=== PATIENT | female | born 1940 | race Caucasian/White ===

== ENCOUNTER 2023-12-19 23:03 | Inpatient (IN) | payer OTHER, SELFPAY ==
[2023-12-19 21:13] VITALS: BP 195/89
--- NOTE | 2023-12-19 21:17 | ED.GENMED ---
History of Present Illness
General
Chief Complaint: Fall
Source: patient, records and senior care records
Exam Limitations: dementia
Time Seen by Provider: 12/19/23 21:15
Nursing documentation reviewed up to this point in time: agreed with
History of Present Illness
History of Present Illness:
Patient is an 83-year-old demented female who presents to the emergency department with right hip shortening and external rotation after falling out of her wheelchair this evening. Patient actually says it is the left hip that hurts. Patient
denies any headache or neck pain. Patient denies any chest pain or abdominal pain. Patient denies any upper extremity pain.
Past History
Past History
ED Past Medical History: GERD, Hypothyroidism and Other (Dementia)
Social History
Tobacco: Non-smoker
Alcohol: None
Review of Systems
Review of Systems
Unable to obtain full review of systems at this time due to: dementia
All Other Systems: Not applicable
Phy Exam
Physical Exam
Physical Exam:
Physical Exam
General: No apparent distress, alert and appropriate, well nourished, well hydrated
HENT: Normocephalic and nontender as well as atraumatic, supple with no lymphadenopathy, no thyromegaly
Eyes: Clear sclera, conjuctiva without injection
Heart: Regular rhythm and rate. No S3, S4. No murmur. No NVD
Lungs: No respiratory distress, no stridor, lung sounds clear and equal bilaterally, chest wall symmetrical and nontender
Abdomen: Soft, nontender, BS good
Neuro: Alert , CN II - XII intact, no motor focality
Skin: no rash
Psychiatric: well kept. interactive and cooperative
Extremities: No edema, cyanosis. Right lower extremity shortened and externally rotated and pain with flexion
Musculoskeletal: No cervical, thoracic or lumbar spine tenderness
Scores
Heart Failure Risk
Heart Failure Risk Score: Not Applicable
Heart Score for Chest Pain Patients
STEMI patient?: Not applicable
Withdrawal Assessment of Alcohol
Withdrawal Assessment Completed?: Not applicable
Course
Orders/Labs/Results
Orders:
Orders
12/19/23 21:15
Cagel Placement- Treatment ONCE
Reason for insertion: I&O's Critical Care
Urinalysis Reflex To Culture Urgent
12/19/23 21:16
CR Hip - RT w/wo Pel 2-3 Vw* Urgent
Comment:
Reason For Exam: fall
Include a pelvis x-ray?: Yes
12/19/23 21:23
Type+Screen Urgent
Complete Blood Count/With Diff Urgent
Comprehensive Metabolic Panel Urgent
PTT Urgent
Prothrombin Time Urgent
Abnormal Lab Results
12/19/23
21:23
WBC 10.9 H 10^3/uL
(4.8-10.8)
MPV 10.6 H fL
(7.4-10.4)
Abs Immat Gran (auto) 0.1 H 10^3/uL
(0-0.05)
Absolute Neuts (auto) 8.8 H 10^3/uL
(1.4-6.5)
Absolute Lymphs (auto) 1.1 L 10^3/uL
(1.2-3.4)
Immature Gran % 0.7 H %
(0-0.5)
Neutrophils % 81.4 H %
(42.2-75.2)
Lymphocytes % 10.5 L %
(20.5-51.1)
Glucose 178 H mg/dl
(70-99)
Calcium 10.3 H mg/dl
(8.4-10.2)
AST 38 H U/L
(14-36)
ALT 37 H U/L
(0-35)
12/19/23 21:23
12/19/23 21:23
Vital Signs
Initial and Last Documented VS:
Initial Vital Signs
Temp Pulse Resp BP Pulse Ox
98.3 F 69 26 195/89 90
12/19/23 21:19 12/19/23 21:19 12/19/23 21:19 12/19/23 21:19 12/19/23 21:19
Last Documented Vital Signs
Temp Pulse Resp BP Pulse Ox
98.3 F 69 26 195/89 90
12/19/23 21:19 12/19/23 21:19 12/19/23 21:19 12/19/23 21:19 12/19/23 21:19
*Radiology
Radiology exam reviewed: radiology read reviewed (Right intertrochanteric fracture)
*Pulse Oximetry
Patient hypoxic: no
*EKG
Interpreted by ED Provider?: NA
*Mine Environmental Engineer Interpretation
Rate: Mine Environmental Engineer- N/A
*Critical Care Note
Total Time (30-74mins, 75-104mins- exclusive of procedures): Not Applicable
ED Attending Note
-
Portions of this chart may have been created with voice recognition software.� Occasional wrong word or��sound alike� substitutions may have occurred due to the inherent limitations of voice recognition software.
Discharge Plan
Departure
Patient Disposition: Admit
Date of Disposition: 12/19/23
Time of Disposition: 22:21
Admit to: Med/Surg
Admit to doctor: Hospitalist
Presentation/result/management discussed w/ accepting MD/DO: Orthopedics
Patient with high blood pressure during this ER visit?: Yes
Condition: Fair
Covid-19: Not Applicable
Discharge Problem:
Intertrochanteric fracture of right hip
Prescriptions:
No Action
acetaminophen 325 mg Tablet
650 mg PO Q6H PRN (Reason: mild pain)
albuterol sulfate 2.5 mg /3 mL (0.083 %) Solution For Nebulization
2.5 mg INHALATION R Q4 PRN (Reason: wheezing)
Patient Comments:
Patent caregiver reports not taking.
polyethylene glycol 3350 17 gram Powder In Packet
17 g PO MOWEFR
sertraline 100 mg Tablet
100 mg PO DAILY
amlodipine 5 mg Tablet
5 mg PO DAILY
levothyroxine 25 mcg Tablet
25 mcg PO DAILY@0600
docusate sodium 100 mg Capsule
100 mg PO DAILY
cocoa butter-shark liver oil Suppository
1 supp OK BID PRN (Reason: Hemorrhoids)
metoprolol succinate 25 mg Tablet Extended Release 24 Hr
25 mg PO BID
metronidazole 1 % Gel
1 applic TOPICAL BID
Rx Instructions:
apply to facial area
pantoprazole 40 mg Tablet,Delayed Release (Dr/Ec)
40 mg PO BID 30 Days Qty: 60 0RF
polyethylene glycol 3350 [Miralax] 17 gram Powder In Packet
17 g PO DAILY PRN (Reason: constipation)
acetaminophen 500 mg Tablet
500 mg PO Q6H PRN (Reason: mild pain/fever)
guaifenesin 100 mg/5 mL Liquid
200 mg PO Q4H PRN (Reason: cough)
cholecalciferol (vitamin D3) [Vitamin D3] 50 mcg (2,000 unit) Tablet
150 mcg PO DAILY
Slow Release Iron 140 mg (45 mg iron) Tablet Extended Release
140 mg PO DAILY
Preparation H 0.25-14-74.9 % Ointment
1 applic OK QID PRN (Reason: external hemorrhoids)
cefpodoxime 200 mg tablet
200 mg PO BID 10 Days Qty: 20 0RF
Referrals:
Saul Mcarthur MD [Family Provider] -
Interventions
Interventions:
*Risk Screen - Suicide Last Done: 12/19/23 21:19
*General Assessment Last Done: 12/19/23 21:19
*Neglect/Abuse Screening Last Done: 12/19/23 21:19
ED- Fall Risk Assessment Last Done: 12/19/23 21:19
*ED COVID-19 Vaccine History Last Done: 12/19/23 21:19
ED-Musculoskeletal Assessment Last Done: 12/19/23 21:19
ED- Neurological Assessment Last Done: 12/19/23 21:19
ED-Skin Assessment Last Done: 12/19/23 21:19
Discharge Date and Time
Print Language: ANDORRAN
[2023-12-19 21:19] VITALS: BP 195/89
[2023-12-19 21:38] LABS: % Basophils 0.5 % (0-2); % Immature Granulocytes 0.7 % (0-0.5); % Lymphocytes 10.5 % (20.5-51.1); % Monocytes 5.9 % (1.7-9.3); % Neutrophils 81.4 % (42.2-75.2); Absolute Basophils 0.1 10^3/uL (0-0.2); Absolute Eosinophils 0.1 10^3/uL (0-0.7); Absolute Immature Granulocytes 0.1 10^3/uL (0-0.05); Absolute Lymphocytes 1.1 10^3/uL (1.2-3.4); Absolute Monocytes 0.6 10^3/uL (0.1-0.6); Absolute Neutrophils 8.8 10^3/uL (1.4-6.5); Hematocrit 40.6 % (37.0-47.0); Hemoglobin 14.2 g/dL (12.0-16.0); Mean Corpuscular Volume 82.9 fL (81.0-99.0); Mean Platelet Volume 10.6 fL (7.4-10.4); Nucleated Red Blood Cells % 0 %; Platelet Count 219 10^3/uL (130-400); Red Cell Dist. Width 12.9 % (11.5-14.5); White Blood Cell Count 10.9 10^3/uL (4.8-10.8)
[2023-12-19 21:49] LABS: ALT (SGPT) 37 U/L (0-35); AST (SGOT) 38 U/L (14-36); Albumin 4.2 g/dl (3.5-5.0); Alkaline Phosphatase 101 U/L (38-126); Blood Urea Nitrogen 17 mg/dl (7-17); Calcium 10.3 mg/dl (8.4-10.2); Carbon Dioxide 23 mmol/L (22-30); Chloride 99 mmol/L (98-107); Glucose 178 mg/dl (70-99); Potassium 4.1 mmol/L (3.5-5.1); Sodium 136 mmol/L (135-145); Total Bilirubin 0.5 mg/dl (0.2-1.3); Total Protein 6.6 g/dl (6.3-8.2); eGFR > 60.00
[2023-12-19 21:50] LABS: APTT 26.9 Sec (23.4-35.0); INR 1.04; PT 13.4 Sec (11.4-14.6)
--- NOTE | 2023-12-19 22:26 | HPS.HSE ---
Addendum entered and electronically signed by Dash Jameson DO 12/20/23 00:01:
Patient seen and examined independently. Agree with findings and plan as set froth by SERENA Pettit.
Patient is an 83y F with dementia, hypertension and h/o paroxysmal atrial fibrillation who presents to ED for evaluation after fall. History obtained from son at the bedside. Patient pleasantly demented at baseline and does not recall events
leading to admission. Patient does complain of pain in the R hip / groin at present. She was apparently leaning from her wheelchair to pick something up from the floor when she fell and landed on her R hip. She was helped back into her chair by
staff; however, son came to check on her later and felt that her RLE appeared abnormal and noted pain with ROM. Patient was brought to the ED for further evaluation / treatment.
Ass:
Right Hip Fracture
Fall from Wheelchair
Ambulatory Dysfunction
Benign Hypertension
Paroxysmal A-Fib
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
GERD / Hiatal Hernia
Hypothyroidism
Senile Dementia
Plan:
Admit for further evaluation and treatment.
Pain control / supportive care overnight.
Ortho evaluation in the AM for probable operative repair.
Patient is mostly wheelchair bound; however, she does stand with assistance for transfers and ambulates with a walker for PT at times.
Patient is at average risk for complications compared to an otherwise healthy individual of her age.
Benefits of the planned procedure outweigh the potential risks and patient is OK to proceed to OR without additional pre-op evaluation(s).
Continue outpatient med regimen.
Monitor on tele josé-operatively.
Not on OAC chronically for her reported history of A-Fib (has always been in sinus rhythm here).
Post-op PT / OT evals.
Original Note:
Family Physician
-
Family Physician: Saul Mcarthur
Chief Complaint
-
fall with hip fracture
History of Present Illness
83 year old with PMH for esophagitis, atrial fib,HTn,depression, dementia presented to us s/p fall. she was sitting on the wheelchair. patient is wheelchair bound. she bent over to take something from the floor. she fell out of her wheelchair.
denied hitting head of the bed. since then she is complaining of right hip pain. she cannot move her right LE. denied BRIZUELA,dizzy or syncopal episode. denied fever, chills, chest pain, sob.denied abdominal pain, n,v,d.denied dysuria or hematuria.
Hip x ray with Intertrochanteric fracture of the right proximal femur.
admitting for further management.
Medical History
Past Medical History
Past Medical History: Reports Other
Additional Past Medical History:
esophagitis
dysphagia
hiatal hernia
htn
depression
dementia
hydrocephalus with shunt
atrial fib
OCd
Past Surgical History: Reports Other
Additional Past Surgical History:
bladder lift
left foot surgery
shunt
Social History
Tobacco: Former Smoker
Alcohol: None
Living: Long-Term
Family History
Family History: Not pertinent
Allergies / Home Medications
Allergies reflects when Allergies were last updated in [facility].
Home Medications with original date entered in [facility]
Allergy/Medication List:
Allergies
Allergy/AdvReac Type Severity Reaction Status Date / Time
bupropion Allergy Rash Verified 12/19/23 21:18
erythromycin base Allergy Rash Verified 12/19/23 21:18
Home Medications
albuterol sulfate 2.5 mg/3 mL (0.083 %) solution for nebulization 2.5 mg inhalation R Q4HPRN PRN wheezing 01/20/22
amlodipine 5 mg tablet 5 mg PO DAILY Blood pressure 01/20/22
docusate sodium 100 mg capsule 100 mg PO DAILY Constipation 01/20/22
levothyroxine 25 mcg tablet 25 mcg PO DAILY Thyroid 01/20/22
metoprolol succinate 25 mg tablet,extended release 24 hr 25 mg PO BID Blood pressure 01/20/22
metronidazole 1 % topical gel 1 applic topical BID rosaea 01/20/22
polyethylene glycol 3350 17 gram oral powder packet 17 g PO MOWEFR Constipation 01/20/22
sertraline 100 mg tablet 100 mg PO DAILY Depression 01/20/22
pantoprazole 40 mg tablet,delayed release 40 mg PO BID 30 days #60 tabs 01/22/22
acetaminophen 500 mg tablet 500 mg PO Q6HPRN PRN mild pain/fever 03/31/23
cholecalciferol (vitamin D3) 50 mcg (2,000 unit) tablet (Vitamin D3) 150 mcg PO DAILY 03/31/23
ferrous sulfate 140 mg (45 mg iron) tablet,extended release (Slow Release Iron) 140 mg PO DAILY 03/31/23
guaifenesin 100 mg/5 mL oral liquid 200 mg PO Q4HPRN PRN cough 03/31/23
polyethylene glycol 3350 17 gram oral powder packet (Miralax) 17 g PO DAILYPRN PRN constipation 03/31/23
phenylephrine HCl 0.25 % rectal suppository 1 supp MI BIDPRN PRN hemorrhoids 12/19/23
phenylephrine-shark liver oil-mineral oil-petrolatum rectal ointment (Hemorrhoidal ointment) 1 applic MI Q6HPRN PRN hemorrhoids 12/19/23
potassium chloride 10 mEq tablet,extended release 10 meq PO DAILYPRN PRN when lasix is given 12/19/23
zinc oxide 12 % topical cream (Brent Protect (zinc oxide)) 1 applic topical BID buttocks rash 12/19/23
Review of Systems
-
Constitutional: Reports No Symptoms
EENT: Reports No Symptoms
Respiratory: Reports No Symptoms
Cardiac: Reports No Symptoms
Abdomen/GI: Reports No Symptoms
: Reports No Symptoms
Musculoskeletal: Reports Other (right hip pain)
Skin: Reports No Symptoms
Neurological: Reports No Symptoms
Endocrine: Reports No Symptoms
Hematologic/Lymphatic: Reports No Symptoms
Psych: Reports No Symptoms
Physical Exam
Vital Signs
Vital Signs
Temp Pulse Resp BP Pulse Ox
98.3 F 69 26 195/89 90
12/19/23 21:19 12/19/23 21:19 12/19/23 21:19 12/19/23 21:19 12/19/23 21:19
Physical Exam
General: Well Developed, Well Nourished and No Apparent Distress
HEENT: NormoCephalic, Moist mucous membranes and Atraumatic
Respiratory: Clear
Cardiac: S1/S2 and Regular Rhythm; No Murmur or Rub
GI: Soft, Non Tender, Non Distended and Normal Bowel Sounds; No Organomegaly
Rectal: Deferred by Provider
Musculoskeletal: No Clubbing, No Cyanosis and Other (right LE shortened and externally rotated)
Skin: No Rash
Neuro: Nonfocal/grossly intact
Psych: Confused
Laboratory Results
-
12/19/23 21:23
12/19/23 21:23
Laboratory Results
PT 13.4 Sec (11.4-14.6) 12/19/23 21:23
INR 1.04 12/19/23 21:23
APTT 26.9 Sec (23.4-35.0) 12/19/23 21:23
Total Bilirubin 0.5 mg/dl (0.2-1.3) 12/19/23 21:23
AST 38 U/L (14-36) H 12/19/23 21:23
ALT 37 U/L (0-35) H 12/19/23 21:23
Alkaline Phosphatase 101 U/L (38-126) 12/19/23 21:23
Data Reviewed
-
Diagnostic Radiology: Report Reviewed by me
Lab Data: Labs Reviewed by me
Impression/Plan
-
#fall with intertrochanteric fracture of right hip
-ortho consulted
-Hip X ray with Intertrochanteric fracture of the right proximal femur.
-will keep NPO after MN
-PT/OT eval after orthopedic evaluation
-bed rest until evaluated by ortho
-oxy,Dilaudid prn for pain
#leukocytosis likely stress reaction
-wbc 10.9
-patient is afebrile, ctm
-obtain UA
#COPD without acute exacerbation
-albuterol continued
#HTN
-BP elevated in ER
�- Continue metoprolol and Norvasc with holding parameters.
-hydralazine prn for SBP>160
�
#Hypothyroidism
�- Continue current T4 supplementation.
#paroxysmal atrial fibrillation unknown chronicity
-obtain EKG
-Not as AC.
-metoprolol continued
#Senile Dementia
�- Continue sertraline
#GERD
-PPI
�
#DVT Prophylaxis:� SCDs
Code Status:� DNR
[2023-12-19 22:28] VITALS: BP 197/87
[2023-12-19 22:35] VITALS: BP 193/90
[2023-12-19 23:00] VITALS: BP 208/88
[2023-12-19 23:03] VITALS: BP 208/88
[2023-12-19] MEDS: LOPRESSOR 25 MG PO (23:34)
[2023-12-20] VITALS (19 sets, daily range): BP systolic 116–194; BP diastolic 67–102; BMI 27.1
[2023-12-20] MEDS: SENOKOT PO ×2 (00:44→17:36)
[2023-12-20] MEDS: MIRALAX PO (00:44)
[2023-12-20] MEDS: COLACE PO ×2 (00:44→17:36)
[2023-12-20] MEDS: TYLENOL PO ×3 (00:44→17:36)
[2023-12-20] MEDS: APRESOLINE 10 MG IV (00:56)
[2023-12-20] MEDS: SYNTHROID 25 MCG PO (05:50)
[2023-12-20] MEDS: ZOLOFT 100 MG PO (08:13)
[2023-12-20] MEDS: TOPROL XL 25 MG PO ×2 (08:13→19:46)
[2023-12-20] MEDS: NORVASC 5 MG PO (08:13)
--- NOTE | 2023-12-20 09:24 | W.PN.HOSP.TC ---
Today's Communication/Plan
-
Await surgery today
Assessment / Plan
Assessment / Plan
Gen-awake, alert, confused, NAD
HEENT-NC, AT, anicteric, clear oral mm
Neck-supple
CV-reg, no M, +S1/S2
Lungs-clear B/L
Abd-soft, NT, ND
Ext-no edema
Musculoskeletal-no cyanosis, clubbing, right lower extremity shortened
Skin-warm and dry
Neuro-grossly non-focal
Psych-calm, cooperative
Acute traumatic right proximal femur fracture -intertrochanteric on x-ray. Suspect fracture related to fall and underlying osteoporosis. Currently n.p.o., awaiting operative intervention today.
PT/OT postop. Continue analgesics.
Apparently is wheelchair-bound at baseline.
Hyperglycemia check - hemoglobin A1c, rule out DM2.
Dementia, likely Alzheimer's type
GERD
Essential hypertension -stable.
NPH with [employer] shunt
Paroxysmal atrial fibrillation -not on chronic anticoagulation.
Esophagitis history
COPD without exacerbation -stable.
Hypothyroidism -continue levothyroxine.
DNR
Anticipated Discharge: > 48 hours
Subjective/Interval History
-
Date of Service: December 20, 2023
Patient seen and examined. No complaints. Pleasantly confused.
Objective Data
-
Labs:
Laboratory Results
12/19/23
21:23
WBC 10.9 H
Hgb 14.2
Hct 40.6
Plt Count 219
PT 13.4
INR 1.04
APTT 26.9
Sodium 136
Potassium 4.1
Chloride 99
Carbon Dioxide 23
BUN 17
Creatinine 0.8
Glucose 178 H
Calcium 10.3 H
Total Bilirubin 0.5
AST 38 H
ALT 37 H
Alkaline Phosphatase 101
Vital Signs:
Vital Signs
Temp Pulse Resp BP Pulse Ox
98.3 F 85 18 155/89 92
12/20/23 07:00 12/20/23 08:13 12/20/23 07:00 12/20/23 08:13 12/20/23 07:00
Review of Systems
-
History Source: Patient
All other systems: Reviewed and negative
--- NOTE | 2023-12-20 09:24 | CON.ORTHO ---
Consultation - Orthopedics
History
HPI: 83-year-old female history of dementia presented to the emergency department after a fall complaints of right hip pain and inability to bear weight. She was subsequently mated to the hospitalist service and orthopedics is consulted for further
evaluation and treatment. Patient is unable to provide any meaningful history given her history of dementia. HPI was obtained from chart review. Patient reportedly fell out of her wheelchair at her [place] [facility] and landed on her right hip. She
experienced continued pain and there was concern for fracture which prompted her evaluation emergency department.
Allergies / Home Medications
Past medical history: A-fib not on anticoagulation, NPH, GERD, hypothyroidism, dementia
Past surgical history: Bladder surgery, left foot surgery, placement of shunt
Social history: Largely confined to a wheelchair, lives at [facility], former smoker
Family history: Not pertinent
Allergy/AdvReac Type Severity Reaction Status Date / Time
bupropion Allergy Rash Verified 12/19/23 21:18
erythromycin base Allergy Rash Verified 12/19/23 21:18
�Medication �Instructions �Recorded
albuterol sulfate 2.5 mg/3 mL 2.5 mg inhalation R Q4HPRN PRN 01/20/22
(0.083 %) solution for nebulization wheezing
amlodipine 5 mg tablet 5 mg PO DAILY Blood pressure 01/20/22
docusate sodium 100 mg capsule 100 mg PO DAILY Constipation 01/20/22
levothyroxine 25 mcg tablet 25 mcg PO DAILY Thyroid 01/20/22
metoprolol succinate 25 mg 25 mg PO BID Blood pressure 01/20/22
tablet,extended release 24 hr
metronidazole 1 % topical gel 1 applic topical BID rosaea 01/20/22
polyethylene glycol 3350 17 gram 17 g PO MOWEFR Constipation 01/20/22
oral powder packet
sertraline 100 mg tablet 100 mg PO DAILY Depression 01/20/22
pantoprazole 40 mg tablet,delayed 40 mg PO BID 30 days #60 tabs 01/22/22
release
acetaminophen 500 mg tablet 500 mg PO Q6HPRN PRN mild 03/31/23
pain/fever
cholecalciferol (vitamin D3) 50 150 mcg PO DAILY 03/31/23
mcg (2,000 unit) tablet (Vitamin
D3)
ferrous sulfate 140 mg (45 mg 140 mg PO DAILY 03/31/23
iron) tablet,extended release
(Slow Release Iron)
guaifenesin 100 mg/5 mL oral liquid 200 mg PO Q4HPRN PRN cough 03/31/23
polyethylene glycol 3350 17 gram 17 g PO DAILYPRN PRN constipation 03/31/23
oral powder packet (Miralax)
phenylephrine HCl 0.25 % rectal 1 supp MN BIDPRN PRN hemorrhoids 12/19/23
suppository
phenylephrine-shark liver 1 applic MN Q6HPRN PRN hemorrhoids 12/19/23
oil-mineral oil-petrolatum rectal
ointment (Hemorrhoidal ointment)
potassium chloride 10 mEq 10 meq PO DAILYPRN PRN when lasix 12/19/23
tablet,extended release is given
zinc oxide 12 % topical cream 1 applic topical BID buttocks rash 12/19/23
(Brent Protect (zinc oxide))
Vital Signs / Lab Results
Temp Pulse Resp BP Pulse Ox
98.3 F 85 18 155/89 92
12/20/23 07:00 12/20/23 08:13 12/20/23 07:00 12/20/23 08:13 12/20/23 07:00
12/19/23 21:23
12/19/23 21:23
10 point review systems reviewed and negative unless otherwise stated
General: Does not appear to be in acute distress in bed, unable to meaningfully converse, alert and oriented x 1
Musculoskeletal right lower extremity
Skin intact, no erythema, no ecchymotic staining
Extremity shortened externally rotated
There is reproducible visible grimace and pain with passive motion of right hip
Tenderness palpation over groin or lateral trochanteric flare
No ipsilateral palpable knee effusion
Spontaneously moving toes
Brisk cap refill
No other areas of body tenderness palpation crepitation of long bones or joints of tissue examination
Diagnostic studies
X-rays right hip reveal displaced right intertrochanteric femur fracture
Assessment / Plan
83-year-old female history of dementia minimally ambulatory with right intertrochanteric femur fracture. I did reach out and speak to the patient's daughter regarding diagnosis and treatment options. Discussed both surgical and nonsurgical
options. After discussion we mutually elected to proceed with operative fixation of form of cephalomedullary nail insertion. We discussed risks benefits alternatives to surgery. We discussed the usual expected perioperative postoperative course.
After discussion verbal consent was obtained from the daughter over the phone.
Nonweightbearing right lower extremity
N.p.o.
Please hold DVT prophylaxis
Medical management per primary team
Pain control
Plan: 2 OR today for insertion right cephalomedullary nail for intertrochanteric femur fracture pending medical clearance and OR availability
--- NOTE | 2023-12-20 11:35 | OR.RPT ---
Operative Report
Operative Report
Anesthesia Type:
General
Operative Indications:
Right
Intertrochanteric femur fracture
Operative Findings :
Same
Complications:
None
Implants:
130 degree x 10 mm Fannie gamma nail, 35 mm distal interlocking screw, 95 mm cephalomedullary lag screw
Procedure and Technique:
Insertion right short cephalomedullary nail
INDICATIONS FOR PROCEDURE:
83-year-old patient history of dementia presented status post mechanical fall. They were subsequently diagnosed with an intertrochanteric femur fracture. Orthopedics was consulted for further evaluation and treatment. After discussion with the
patient and her family, decision was made to proceed with operative intervention in the form of short cephalomedullary nail. Long discussion was had regarding risks and benefits of procedure. Risks include but are not limited to infection, blood
loss, damage to surrounding structures, persistent pain, loss of function, need for repeat surgery, implant cut out, periprosthetic fracture, DVT/PE and adverse risks of anesthesia. Benefits include early mobilization and fracture stabilization.
After discussion written informed consent was obtained.
OPERATIVE PROCEDURE:
Patient was seen and identified in the preoperative holding area. Operative extremity was marked. Patient was taken to the operating room and provided anesthesia by the anesthesia team. Placed supine on fracture table. Nonoperative extremity was
placed in a scissored position and padded with a gel pad to the contralateral post of the fracture table. Operative extremity was placed in a well-padded fracture boot. Biplanar fluoroscopy confirmed appropriate reduction after axial traction,
adduction and slight internal rotation of the fracture. Operative extremity was then prepped and draped in normal sterile fashion. Timeout was performed again identifying the operative extremity correctly. Preoperative antibiotics were addressed.
Approximately 5 cm incision was made 2 fingerbreadths proximal to the greater trochanter. Sharp dissection was carried through skin and subcutaneous tissues deep fascial layers. Guidepin was then inserted under plantar fluoroscopic guidance
through the greater trochanter in accordance with the implants operative technique. This was inserted to a depth just distal to the lesser trochanter. Proximal opening reamer was then utilized. A 10 millimeter X 130 degree short cephalomedullary
nail was then inserted to the appropriate depth. Trocar was then inserted through the aiming arm. Sharp dissection was then carried through skin and subcutaneous tissues as well as deep fascial layers. Guidewire was inserted through the trocar
into the femoral neck and head. Appropriate position was confirmed under biplanar fluoroscopy. Attention was made to minimize the tip apex distance. Measurements were obtained for the cephalomedullary screw. Cannulated drill was then drilled to
the appropriate depth followed by the insertion of cannulated cephalomedullary screw. Appropriate final position of the screw within the confines of the femoral neck and head were confirmed again on biplanar fluoroscopy. Setscrew was deployed
additional trocar was then inserted through the aiming arm for the distal interlocking screw. Sharp dissection was carried through skin, subcutaneous tissues and deep fascial layers. Appropriate length interlocking screw was then drilled and
inserted. Final appropriate positioning was confirmed again on biplanar fluoroscopy. Satisfied with the extent of surgery, wounds were copiously irrigated with normal saline solution and closed in a layered fashion utilizing 0 Vicryl for deep
fascial layer, 2-0 Vicryl for subcu cutaneous layer and kailyn for skin. Aquacel dressings were applied. Anesthesia was reversed and patient was taken to the operating room in stable condition. Postoperative plans include weightbearing the
patient's tolerance. Will recommend DVT prophylaxis to consist of renally dosed Lovenox daily x 28 days postop
Disposition:
PACU stable condition
[2023-12-20 12:56] LABS: Glycohemoglobin (HgbA1c) 6.7 % (4.0-5.6)
--- NOTE | 2023-12-20 13:35 | CM ---
Reviewed chart, spoke with patient's daughter to obtain information for assessment. Patient's daughter stated that patient lives at the [facility] in their memory care. She receives 24 hr assistance as she has 2 cg who come daily to support patient.
Patient's daughter stated that she needs assistance with toileting, transferring, she is incontinent of bowel and bladder. She wears incontinent supplies.
Patient has never been to a SNF.
She has not had VN services.
Patient has a prescription plan, and the medications come from [employer] [employer].
Her PCP is, Saul Mcarthur.
Patient's daughter stated that she feels that patient will need rehab and is unsure of whether or not she will be able to return to the [facility] as, she has reached the amount of capacity they have to support her. She stated that she would like for
patient to transfer to a SNF, then become LTC unless she vastly improves.
She would like referrals sent to: [facility], [facility], [facility], and [place]. She stated that she knows Sofiya in admissions at [facility] as she used to work with her when she was with [facility] about two years ago. She
stated that she has Sofiya's cell number and she will call her on Friday.
Will send referrals through [employer].
Plan: Case management will continue to follow and assist with discharge planning. SNF when stable and potential LTC care.
[2023-12-20] MEDS: NSS 1000 IV (13:52)
[2023-12-20] MEDS: ANCEF 5 IV ×2 (13:53→19:46)
[2023-12-20] MEDS: TYLENOL 650 MG PO ×3 (13:59→19:46)
[2023-12-20] MEDS: PROTONIX PO (17:36)
[2023-12-20] MEDS: PROTONIX 40 MG PO (19:46)
[2023-12-20] MEDS: SENOKOT 17.2 MG PO (19:46)
[2023-12-20] MEDS: COLACE 100 MG PO (19:46)
[2023-12-21] VITALS (7 sets, daily range): BP systolic 128–175; BP diastolic 58–86; PULSE 68; O2SAT 98
[2023-12-21] MEDS: NSS 1000 IV (00:31)
[2023-12-21] MEDS: TYLENOL PO ×2 (00:32→05:54)
[2023-12-21] MEDS: SYNTHROID 25 MCG PO (05:56)
--- NOTE | 2023-12-21 06:18 | W.PN.ORTHO ---
Today's Communication / Plan
-
83-year-old female history of dementia postop day 1 status post right cephalomedullary nail fixation for intertrochanteric femur fracture
Weightbearing as tolerated right lower extremity
PT OT
DVT prophylaxis: Lovenox renally dosed x 28 days
Pain control
Medical management per primary team
Plan to see patient office in 2 to 3 weeks for repeat evaluation with planned removal of kailyn
Subjective
.
.:
Patient resting comfortably in the morning. No documented overnight acute events
Vital Signs and Labs
.
Vital Signs and Labs:
Lab Results
12/19/23 21:23
12/19/23 21:23
Temp Pulse Resp BP Pulse Ox
97.9 F 76 19 150/80 96
12/21/23 03:42 12/21/23 03:42 12/21/23 03:42 12/21/23 03:42 12/21/23 03:42
PT 13.4 Sec (11.4-14.6) 12/19/23 21:23
INR 1.04 12/19/23 21:23
Physical Exam
-
Musculoskeletal right lower extremity
Minimal bloody drainage dressing
Mild to moderate swelling right thigh
Brisk cap refill distally
Unable to meaningfully participate in examination
[2023-12-21] MEDS: TYLENOL 650 MG PO ×4 (09:33→20:47)
[2023-12-21] MEDS: NORVASC 5 MG PO (09:34)
[2023-12-21] MEDS: LOVENOX 40 MG SC (09:35)
[2023-12-21] MEDS: SENOKOT 17.2 MG PO ×2 (09:35→20:47)
--- NOTE | 2023-12-21 09:46 | W.PN.HOSP.TC ---
Today's Communication/Plan
-
Continue current care
Assessment / Plan
Assessment / Plan
Gen-awake, alert, confused, NAD
HEENT-NC, AT, anicteric, clear oral mm
Neck-supple
CV-reg, no M, +S1/S2
Lungs-clear B/L
Abd-soft, NT, ND
Ext-no edema
Musculoskeletal-no cyanosis, clubbing, right lower extremity shortened
Skin-warm and dry
Neuro-grossly non-focal
Psych-calm, cooperative
Acute traumatic right proximal femur fracture -intertrochanteric on x-ray. Suspect fracture related to fall and underlying osteoporosis. Stable postop.
PT/OT postop. Continue analgesics.
Her aide tells me that she does ambulate with assistance only.
DM2 without hyperglycemia -appears to be a new diagnosis. Hemoglobin A1c 6.7%. Given her age, dementia, frailty recommend dietary changes only.
Dementia, likely Alzheimer's type
GERD
Essential hypertension -stable.
NPH with ICING COATER shunt
Paroxysmal atrial fibrillation -not on chronic anticoagulation.
Esophagitis history
COPD without exacerbation -stable.
Hypothyroidism -continue levothyroxine.
DNR
Dispo -medically stable for SNF. Awaiting PT/OT input.
Anticipated Discharge: Within 24 hours
Subjective/Interval History
-
Date of Service: December 21, 2023
Patient seen and examined. No complaints.
Objective Data
-
Vital Signs:
Vital Signs
Temp Pulse Resp BP Pulse Ox
98.3 F 74 18 165/86 95
12/21/23 07:58 12/21/23 09:34 12/21/23 07:58 12/21/23 09:34 12/21/23 07:58
I&O
12/20/23 12/21/23 12/22/23
06:59 06:59 06:59
Intake Total 1800 / 1800
Output Total 300 / 300
Balance 1500 / 1500
Review of Systems
-
Unable to obtain full review of systems at this time due to: Dementia
History Source: Patient
All other systems: Reviewed and negative
[2023-12-21] MEDS: PROTONIX PO (10:09)
[2023-12-21] MEDS: COLACE PO (10:09)
[2023-12-21] MEDS: ZOLOFT 100 MG PO (10:10)
[2023-12-21] MEDS: TOPROL XL PO (10:10)
[2023-12-21] MEDS: NSS IV (10:38)
--- NOTE | 2023-12-21 12:16 | CM ---
Received notification from attending that patient is medically cleared for discharge. Will f/u with SNFs and initiate auth.
Plan: Case management will continue to follow and assist with discharge planning. Transfer to SNF upon bed availability and auth.
[2023-12-21] MEDS: LOPRESSOR 25 MG PO (20:48)
[2023-12-21] MEDS: ROXICODONE 5 MG PO (20:48)
[2023-12-21] MEDS: COLACE LIQUID 100 MG PO (20:49)
[2023-12-21] MEDS: PREVACID 30 MG TUBE (22:07)
[2023-12-22] VITALS (9 sets, daily range): BP systolic 114–159; BP diastolic 57–118; PULSE 72; O2SAT 92
[2023-12-22] MEDS: MIRALAX PO (00:12)
[2023-12-22] MEDS: TYLENOL PO ×3 (00:12→23:07)
[2023-12-22] MEDS: TYLENOL 650 MG PO ×4 (03:45→21:20)
[2023-12-22] MEDS: ROXICODONE 5 MG PO (03:46)
[2023-12-22] MEDS: SYNTHROID 25 MCG PO (05:05)
[2023-12-22] MEDS: LOVENOX 40 MG SC (08:59)
[2023-12-22] MEDS: SENOKOT 17.2 MG PO ×2 (08:59→21:20)
[2023-12-22] MEDS: COLACE LIQUID 100 MG PO ×2 (08:59→21:20)
[2023-12-22] MEDS: LOPRESSOR 25 MG PO ×2 (08:59→21:21)
[2023-12-22] MEDS: NORVASC 5 MG PO (09:02)
[2023-12-22] MEDS: ZOLOFT 100 MG PO (09:02)
[2023-12-22] MEDS: FERROUS SULFATE ORAL LIQUID 300 MG PO (09:37)
[2023-12-22] MEDS: PREVACID 30 MG TUBE ×2 (09:37→21:20)
--- NOTE | 2023-12-22 10:51 | W.PN.HOSP.TC ---
Today's Communication/Plan
-
Medically stable awaiting SNF placement
Assessment / Plan
Assessment / Plan
Assessment:
Acute traumatic right proximal femur fracture (intertrochanteric)
- related to fall and underlying osteoporosis
- s/p right cephalomedullary nail fixation 12/20/23
- post-op PT/OT, pain control
- DVT ppx: Lovenox x 28 days
- OP f/u in 2-3 weeks
- awaiting SNF placement
DM2 without hyperglycemia
- appears to be a new diagnosis. Hemoglobin A1c 6.7%. Given her age, dementia, frailty recommend dietary changes only.
Dementia, likely Alzheimer's type
GERD
- continue PPI BID
Essential hypertension
- stable, continue Norvasc 5mg, continue BB
NPH with FLAGGER shunt
Paroxysmal atrial fibrillation - not on chronic anticoagulation. continue BB
Esophagitis history
COPD without exacerbation - stable.
Hypothyroidism - continue levothyroxine.
DVT ppx: Lovenox
Code: DNR
Anticipated Discharge: 24 - 48 hours
Subjective/Interval History
-
Date of Service: December 22, 2023
no new complaints
Objective Data
-
Vital Signs:
Vital Signs
Temp Pulse Resp BP Pulse Ox
97.2 F 75 16 137/60 92
12/22/23 07:06 12/22/23 07:06 12/22/23 07:06 12/22/23 07:06 12/22/23 07:06
I&O
12/21/23 12/22/23 12/23/23
06:59 06:59 06:59
Intake Total 1800 / 1800 1560 / 1560
Output Total 300 / 300 400 / 400
Balance 1500 / 1500 1160 / 1160
Physical Exam
-
General: No Apparent Distress
HEENT: Normocephalic and Atraumatic
Respiratory: Negative Wheezes
Cardiac: Regular Rhythm
GI: Soft
Neuro: AO x 3
Psych: Calm
Data Reviewed
-
Total Time Spent with Patient (in minutes): 41
Labs: Labs Reviewed by me
--- NOTE | 2023-12-22 16:00 | CM ---
Addendum entered by Angelica Lee 12/22/23 17:01:
Received call from Sofiya at [facility] - can accept
Returned call from pts daughter Cleo Sandoval LM on VM
Attempted to start auth in [employer] - did not recognize NPI for [facility]
[employer] - closed at this time - will attempt to call in AM to complete auth
Plan - snf when bed obtained
Original Note:
manager servicing following for discharge planning
Chart reviewed
Reviewed referral for snf in [facility] - can accept pend bed availability
Called [facility], left message with Sofiya - requesting review of referral
[facility] - no beds
[facility] - with [facility] requesting review of referral
Plan - snf when bed obtained
[2023-12-23 03:14] VITALS: BP 157/79
[2023-12-23] MEDS: TYLENOL PO ×5 (05:27→23:32)
[2023-12-23] MEDS: SYNTHROID 25 MCG PO (05:51)
[2023-12-23 07:53] VITALS: BP 142/66
--- NOTE | 2023-12-23 08:00 | PTCARENOTE ---
Attempted to sit patient up at edge of bed. Patient could not hold herself up and was yelling that her right leg hurt. Roxicodone given for pain, ice pack applied to right hip. Patient has no c/o pain when lying in bed.
[2023-12-23] MEDS: LOVENOX 40 MG SC (10:09)
[2023-12-23] MEDS: FERROUS SULFATE ORAL LIQUID 300 MG PO (10:09)
[2023-12-23] MEDS: COLACE LIQUID 100 MG PO (10:09)
[2023-12-23] MEDS: ZOLOFT 100 MG PO (10:10)
[2023-12-23] MEDS: TYLENOL 650 MG PO ×2 (10:10→13:25)
[2023-12-23] MEDS: PREVACID 30 MG TUBE (10:10)
[2023-12-23] MEDS: LOPRESSOR 25 MG PO ×2 (10:10→20:41)
[2023-12-23] MEDS: SENOKOT 17.2 MG PO ×2 (10:10→20:41)
[2023-12-23] MEDS: ROXICODONE 5 MG PO (10:13)
--- NOTE | 2023-12-23 10:35 | CM ---
Addendum entered by Angelica Lee 12/23/23 10:50:
Spoke with pts daughter
Aware waiting on auth for [facility] - will notify daughter when auth obtained
Original Note:
Case management following for discharge planning
Pt for [facility]
Called [employer] for auth - unable to start auth
Auth started in [facility] - Reference number [id number]
Clinicals uploaded to [facility]
Plan - transfer to [facility] when auth obtained
--- NOTE | 2023-12-23 12:56 | W.PN.HOSP.TC ---
Today's Communication/Plan
-
await SNF/Auth
Assessment / Plan
Assessment / Plan
Assessment:
Acute traumatic right proximal femur fracture (intertrochanteric)
- related to fall and underlying osteoporosis
- s/p right cephalomedullary nail fixation 12/20/23
- post-op PT/OT, pain control
- DVT ppx: Lovenox x 28 days
- OP f/u in 2-3 weeks
- awaiting SNF placement; auth pending
DM2 without hyperglycemia
- appears to be a new diagnosis. Hemoglobin A1c 6.7%. Given her age, dementia, frailty recommend dietary changes only.
Dementia, likely Alzheimer's type
GERD
- continue PPI BID
Essential hypertension
- stable, continue Norvasc 5mg, continue BB
NPH with STEEL INSPECTOR shunt
Paroxysmal atrial fibrillation - not on chronic anticoagulation. continue BB
Esophagitis history
COPD without exacerbation - stable.
Hypothyroidism - continue levothyroxine.
DVT ppx: Lovenox
Code: DNR
Anticipated Discharge: Within 24 hours
Subjective/Interval History
-
Date of Service: December 23, 2023
denies any new complaints
off O2
Objective Data
-
Vital Signs:
Vital Signs
Temp Pulse Resp BP Pulse Ox
97.7 F 71 16 142/66 94
12/23/23 07:53 12/23/23 07:53 12/23/23 07:53 12/23/23 07:53 12/23/23 07:53
I&O
12/22/23 12/23/23 12/24/23
06:59 06:59 06:59
Intake Total 1560 / 1560 180 / 180
Output Total 400 / 400
Balance 1160 / 1160 180 / 180
Physical Exam
-
General: No Apparent Distress
HEENT: Normocephalic and Atraumatic
Respiratory: Negative Wheezes
Cardiac: Regular Rhythm and S1/S2
GI: Soft
Genito-urinary: No Costovertebral Tender
Musculoskeletal: No Edema
Neuro: AO x 3
Hematologic / Lymphatic: No Lymphadenopathy
Psych: Calm
Data Reviewed
-
Total Time Spent with Patient (in minutes): 41
Labs: Labs Reviewed by me
[2023-12-23] MEDS: MIRALAX 17 GRAMS PO (13:25)
[2023-12-23] MEDS: NORVASC 5 MG PO (13:25)
[2023-12-23 15:15] VITALS: BP 134/68
[2023-12-23 15:40] VITALS: BP 110/60; PULSE 69; O2SAT 92
[2023-12-23 16:14] VITALS: BP 110/61; PULSE 71
[2023-12-23] MEDS: PROTONIX 40 MG PO (20:41)
[2023-12-23] MEDS: COLACE 100 MG PO (20:42)
[2023-12-23 22:02] LABS: Glucose - Point of Care 146 mg/dl (70-99)
[2023-12-23 23:05] VITALS: BP 140/69
[2023-12-23] MEDS: MIRALAX PO (23:32)
[2023-12-24] MEDS: TYLENOL PO (04:22)
[2023-12-24] MEDS: TYLENOL 650 MG PO ×5 (05:49→21:35)
[2023-12-24] MEDS: SYNTHROID 25 MCG PO (05:50)
[2023-12-24] MEDS: MIRALAX 17 GRAMS PO (07:48)
[2023-12-24] MEDS: FERROUS SULFATE ORAL LIQUID 300 MG PO (07:48)
[2023-12-24] MEDS: ZOLOFT 100 MG PO (07:48)
[2023-12-24] MEDS: NORVASC 5 MG PO (07:48)
[2023-12-24] MEDS: SENOKOT 17.2 MG PO ×2 (07:49→21:36)
[2023-12-24] MEDS: LOVENOX 40 MG SC (07:49)
[2023-12-24] MEDS: LOPRESSOR 25 MG PO ×2 (07:49→21:36)
[2023-12-24] MEDS: PROTONIX 40 MG PO ×2 (07:49→21:36)
[2023-12-24] MEDS: COLACE 100 MG PO ×2 (07:49→21:36)
[2023-12-24 08:24] VITALS: BP 158/74
--- NOTE | 2023-12-24 10:40 | W.PN.HOSP.TC ---
Today's Communication/Plan
-
medically stable for SNF placement pending auth
Assessment / Plan
Assessment / Plan
Assessment:
Acute traumatic right proximal femur fracture (intertrochanteric)
- related to fall and underlying osteoporosis
- s/p right cephalomedullary nail fixation 12/20/23
- post-op PT/OT, pain control
- DVT ppx: Lovenox x 28 days
- OP f/u in 2-3 weeks
- awaiting SNF placement; auth pending
DM2 without hyperglycemia
- appears to be a new diagnosis. Hemoglobin A1c 6.7%. Given her age, dementia, frailty recommend dietary changes only.
Dementia, likely Alzheimer's type
GERD
- continue PPI BID
Essential hypertension
- stable, continue Norvasc 5mg, continue BB
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
Paroxysmal atrial fibrillation - not on chronic anticoagulation. continue BB
Esophagitis history
COPD without exacerbation - stable.
Hypothyroidism - continue levothyroxine.
DVT ppx: Lovenox
Code: DNR
Anticipated Discharge: 24 - 48 hours
Subjective/Interval History
-
Date of Service: December 24, 2023
no new complaints at present
awaiting rehab
Objective Data
-
Vital Signs:
Vital Signs
Temp Pulse Resp BP Pulse Ox
98.0 F 79 18 158/74 93
12/24/23 08:24 12/24/23 08:24 12/24/23 08:24 12/24/23 08:24 12/24/23 08:24
I&O
12/23/23 12/24/23 12/25/23
06:59 06:59 06:59
Intake Total 180 / 180 240 / 240
Output Total 250 / 250
Balance 180 / 180 -10 / -10
Physical Exam
-
General: No Apparent Distress
HEENT: Normocephalic and Atraumatic
Respiratory: Negative Wheezes
Cardiac: Regular Rhythm and S1/S2
GI: Soft
Neuro: Awake and Alert
Psych: Apparent Dementia
Data Reviewed
-
Total Time Spent with Patient (in minutes): 42
Labs: Labs Reviewed by me
--- NOTE | 2023-12-24 11:10 | CM ---
Addendum entered by Angelica Lee 12/24/23 15:02:
Auth remains pending
Original Note:
Case management following for discharge planning
Chart reviewed
Auth remains pending - [facility] at [facility] aware
Spoke with pts daughter - aware auth remains pending
Plan - anticipate transfer to [facility] when auth obtained
[2023-12-24 11:53] VITALS: BP 136/68; PULSE 62; O2SAT 95
[2023-12-24 11:57] VITALS: BP 136/68; PULSE 62; O2SAT 95
[2023-12-24 15:50] VITALS: BP 140/64
[2023-12-24 23:35] VITALS: BP 138/65
[2023-12-25] MEDS: TYLENOL PO ×2 (00:09→07:38)
[2023-12-25] MEDS: TYLENOL 650 MG PO ×2 (05:18→11:31)
[2023-12-25] MEDS: SYNTHROID 25 MCG PO (05:18)
[2023-12-25 07:27] VITALS: BP 164/87
[2023-12-25] MEDS: COLACE PO (07:37)
[2023-12-25] MEDS: SENOKOT PO (07:38)
[2023-12-25] MEDS: LOVENOX 40 MG SC (07:38)
[2023-12-25] MEDS: ZOLOFT 100 MG PO (07:38)
[2023-12-25] MEDS: FERROUS SULFATE ORAL LIQUID 300 MG PO (07:39)
[2023-12-25] MEDS: NORVASC 5 MG PO (07:39)
[2023-12-25] MEDS: LOPRESSOR 25 MG PO (07:39)
[2023-12-25] MEDS: PROTONIX 40 MG PO (07:39)
--- NOTE | 2023-12-25 10:11 | W.PN.HOSP.TC ---
Addendum entered and electronically signed by Farhat Jacobson MD 12/25/23 10:49:
More than 30 minutes spent in discharge including
Final examination of the patient
Summarizing hospital stay
Instructions for continuing care to all relevant caregivers
Preparation of discharge records, prescriptions, and referral forms
Total time spent (in minutes):41
Original Note:
Today's Communication/Plan
-
medically stable for SNF placement pending auth
Assessment / Plan
Assessment / Plan
Assessment:
Acute traumatic right proximal femur fracture (intertrochanteric)
- related to fall and underlying osteoporosis
- s/p right cephalomedullary nail fixation 12/20/23
- post-op PT/OT, pain control
- DVT ppx: Lovenox x 28 days
- OP f/u in 2-3 weeks
- awaiting SNF placement; auth pending
DM2 without hyperglycemia
- appears to be a new diagnosis. Hemoglobin A1c 6.7%. Given her age, dementia, frailty recommend dietary changes only.
Dementia, likely Alzheimer's type
GERD
- continue PPI BID
Essential hypertension
- stable, continue Norvasc 5mg, continue BB
NPH with INTELLIGENCE CLERK shunt
Paroxysmal atrial fibrillation - not on chronic anticoagulation. continue BB
Esophagitis history
COPD without exacerbation - stable.
Hypothyroidism - continue levothyroxine.
DVT ppx: Lovenox
Code: DNR
Anticipated Discharge: Within 24 hours
Subjective/Interval History
-
Date of Service: December 25, 2023
no new complaints presently
Objective Data
-
Vital Signs:
Vital Signs
Temp Pulse Resp BP Pulse Ox
98.2 F 75 17 164/87 98
12/25/23 07:27 12/25/23 07:39 12/25/23 07:27 12/25/23 07:39 12/25/23 07:27
I&O
12/24/23 12/25/23 12/26/23
06:59 06:59 06:59
Intake Total 240 / 240 360 / 360
Output Total 250 / 250 700 / 700
Balance -10 / -10 -340 / -340
Physical Exam
-
General: No Apparent Distress
HEENT: Normocephalic and Atraumatic
Respiratory: Negative Wheezes
Cardiac: Regular Rhythm and S1/S2
GI: Soft
Genito-urinary: No Costovertebral Tender
Musculoskeletal: No Edema
Neuro: AO x 3
Hematologic / Lymphatic: No Lymphadenopathy
Psych: Calm
Data Reviewed
-
Total Time Spent with Patient (in minutes): 41
Labs: Labs Reviewed by me
--- NOTE | 2023-12-25 10:24 | CM ---
Addendum entered by Angelica Lee 12/25/23 11:21:
Transport arranged for 2-2:30PM
Daughter and facility aware
Addendum entered by Angelica Lee 12/25/23 11:00:
Auth approved - Skilled Care
Received call from Naheed at [facility]
Certification number - [id number]
Start date - 12/24-01/05 NRD 01/06
F - [phone] to [facility]
Pts daughter made aware
Facility aware
Reviewed IMM with daughter
Plan - transfer to [facility]
R - [phone]
F - [phone]
Original Note:
Case management following for discharge planning
Auth remains pending
Escalated via Email - awaiting response
Plan - anticipate transfer to [facility] when auth obtained
--- NOTE | 2023-12-25 10:49 | W.DS.TRANS ---
DC Summary - [employer]
-
Discharge Instructions:
Discharge Diagnosis/Procedures Acute traumatic right proximal femur fracture (
intertrochanteric)
Diet Regular
Activity As tolerated
Additional Activity Weightbearing as tolerated right lower extremity
Bathing Restrictions None
Other Services PT,OT
Instructions:
Stand-Alone Forms:
Changes to Home Medications: No
Discharge Medications:
DC Medications w/original date entered in [employer]
albuterol sulfate 2.5 mg/3 mL (0.083 %) solution for nebulization 2.5 mg inhalation R Q4HPRN PRN wheezing 01/20/22
amlodipine 5 mg tablet 5 mg PO DAILY Blood pressure 01/20/22
docusate sodium 100 mg capsule 100 mg PO DAILY Constipation 01/20/22
levothyroxine 25 mcg tablet 25 mcg PO DAILY@06 Thyroid 01/20/22
metoprolol succinate 25 mg tablet,extended release 24 hr 25 mg PO BID Blood pressure 01/20/22
metronidazole 1 % topical gel 1 applic topical BID rosacea 01/20/22
polyethylene glycol 3350 17 gram oral powder packet 17 g PO MOWEFR Constipation 01/20/22
sertraline 100 mg tablet 100 mg PO DAILY Depression 01/20/22
pantoprazole 40 mg tablet,delayed release 40 mg PO BID 30 days #60 tabs 01/22/22
acetaminophen 500 mg tablet 500 mg PO Q6HPRN PRN mild pain/fever 03/31/23
cholecalciferol (vitamin D3) 50 mcg (2,000 unit) tablet (Vitamin D3) 150 mcg PO DAILY Supplement 03/31/23
ferrous sulfate 140 mg (45 mg iron) tablet,extended release (Slow Release Iron) 140 mg PO DAILY Supplement 03/31/23
guaifenesin 100 mg/5 mL oral liquid 200 mg PO Q4HPRN PRN cough 03/31/23
polyethylene glycol 3350 17 gram oral powder packet (Miralax) 17 g PO DAILYPRN PRN constipation 03/31/23
phenylephrine HCl 0.25 % rectal suppository 1 supp RI BIDPRN PRN hemorrhoids 12/19/23
phenylephrine-shark liver oil-mineral oil-petrolatum rectal ointment (Hemorrhoidal ointment) 1 applic RI Q6HPRN PRN hemorrhoids 12/19/23
potassium chloride 10 mEq tablet,extended release 10 meq PO DAILYPRN PRN when lasix is given 12/19/23
zinc oxide 12 % topical cream (Brent Protect (zinc oxide)) 1 applic topical BID buttocks rash 12/19/23
enoxaparin 40 mg/0.4 mL subcutaneous syringe 40 mg (0.4 mL) SC DAILY #22 mL 12/24/23
oxycodone 5 mg tablet 5 mg PO Q4HPRN PRN mild pain #10 tabs 12/24/23
Home Medication Changes
Pending Results: No
Total time spent discharging patient (in min): 41
[2023-12-25 11:34] VITALS: BP 93/70
== END 2023-12-25 14:49 | DRG 481 ==
LOC: 3 WEST ACU 23:03
PROVIDERS: ADMITTING PHYSICIAN Hospitalist; ATTENDING PHYSICIAN Internal Medicine; CONSULT PHYSICIAN Orthopaedic Surgery; EMERGENCY PHYSICIAN Emergency Medicine; FAMILY PHYSICIAN Family Medicine
PROC: 0QH806Z Insertion of Intramedullary Internal Fixation Device into Right Femoral Shaft, Open Approach (ICD-10-PCS; 2023-12-20)
DX: M80.051A Age-related osteoporosis with current pathological fracture, right femur, initial encounter for fracture (principal); G91.2 (Idiopathic) normal pressure hydrocephalus; E11.65 Type 2 diabetes mellitus with hyperglycemia; F03.90 Unspecified dementia, unspecified severity, without behavioral disturbance, psychotic disturbance, mood disturbance, and anxiety; K21.9 Gastro-esophageal reflux disease without esophagitis; I10 Essential (primary) hypertension; J44.9 Chronic obstructive pulmonary disease, unspecified; Z75.1 Person awaiting admission to adequate facility elsewhere; I48.0 Paroxysmal atrial fibrillation
CPT/HCPCS: 73502; 76000; 80053; 82962; 83036; 85025; 85610; 85730; 86850; 86900; 86901; 87070; 93005; 97163; 97167; 97530; 97535; 99285; C1713

== ENCOUNTER → 2023-12-31 10:30 | Outpatient (REF) | payer OTHER, SELFPAY ==
[2023-12-31 11:19] LABS: % Basophils 0.9 % (0-2); % Eosinophils 3.3 % (0-6); % Immature Granulocytes 3.4 % (0-0.5); % Lymphocytes 28.9 % (20.5-51.1); % Monocytes 9.6 % (1.7-9.3); % Neutrophils 53.9 % (42.2-75.2); Absolute Basophils 0.1 10^3/uL (0-0.2); Absolute Eosinophils 0.2 10^3/uL (0-0.7); Absolute Immature Granulocytes 0.2 10^3/uL (0-0.05); Absolute Lymphocytes 1.6 10^3/uL (1.2-3.4); Absolute Monocytes 0.5 10^3/uL (0.1-0.6); Hemoglobin 11.3 g/dL (12.0-16.0); Mean Corp Hgb Conc. 33.2 g/dL (33.0-37.0); Mean Corpuscular Hgb 30.1 pg (27.0-31.0); Mean Corpuscular Volume 90.7 fL (81.0-99.0); Mean Platelet Volume 9.8 fL (7.4-10.4); Nucleated Red Blood Cells % 0 %; Platelet Count 273 10^3/uL (130-400); Red Blood Cell Count 3.75 10^6/uL (4.20-5.40); Red Cell Dist. Width 14.4 % (11.5-14.5); White Blood Cell Count 5.5 10^3/uL (4.8-10.8)
[2023-12-31 11:47] LABS: ALT (SGPT) 22 U/L (0-35); AST (SGOT) 26 U/L (14-36); Albumin 3.5 g/dl (3.5-5.0); Alkaline Phosphatase 100 U/L (38-126); Blood Urea Nitrogen 16 mg/dl (7-17); Calcium 9.9 mg/dl (8.4-10.2); Carbon Dioxide 23 mmol/L (22-30); Chloride 101 mmol/L (98-107); Glucose 116 mg/dl (70-99); Magnesium 1.9 mg/dl (1.6-2.3); Potassium 3.6 mmol/L (3.5-5.1); Sodium 140 mmol/L (135-145); Total Bilirubin 0.7 mg/dl (0.2-1.3); Total Protein 5.9 g/dl (6.3-8.2); eGFR > 60.00
[2023-12-31 11:58] LABS: Vitamin D, 25-OH*** 43.2 ng/mL (30-80)
[2023-12-31 12:12] LABS: TSH 3.41 uIU/ml (0.47-4.68)
== END ==
LOC: OLABN 10:30
PROVIDERS: ATTENDING PHYSICIAN Student in an Organized Health Care Education/Training Program
DX: E83.42 Hypomagnesemia (principal); D64.9 Anemia, unspecified; E03.9 Hypothyroidism, unspecified; E55.9 Vitamin D deficiency, unspecified
CPT/HCPCS: 36415; 80053; 82306; 83735; 84443; 85025

== ENCOUNTER 2024-01-03 15:07 | Inpatient (IN) | payer OTHER, SELFPAY ==
--- NOTE | 2024-01-02 17:26 | ED.GENMED ---
History of Present Illness
General
Chief Complaint: Weakness
Source: patient
Time Seen by Provider: 01/02/24 17:20
History of Present Illness
History of Present Illness:
83-year-old female presents from nursing facility with complaints of generalized weakness shaking chills. Patient was here and discharged 1 week ago after suffering a right intertrochanteric hip fracture. Today she was noticed to have rigors. She
does have a history of dementia and is a limited historian. She denies pain to me. No other complaints
Past History
Past History
ED Past Medical History: GERD, Hypothyroidism and Other (Dementia)
ED Past Surgical History: None
Social History
Tobacco: Non-smoker
Alcohol: None
Phy Exam
Physical Exam
Physical Exam:
General: Well developed female No acute respiratory distress
HEENT: NC/AT
Heart: tachycardic but regular
Lungs: Clear no obvious wheeze or rales
Abdomen is soft nontender nondistended
Extremities: No cyanosis. Well-appearing surgical incisions over the lateral aspect of the right hip. There is surrounding ecchymosis but no erythema. Awilda and
Neurologic: Alert and oriented to person and place no facial asymmetry
Course
Orders/Labs/Results
Orders:
Orders
01/02/24 17:20
EKG [Electrocardiogram (*1)] Urgent
Reason for Study: Tachycardia
EKG- Treatment ONCE
01/02/24 17:26
CR Chest - 2 Views Urgent
Comment:
Reason For Exam: fever
01/02/24 17:45
COVID-19 Antigen Urgent
Source: Nasal Swab
Complete Blood Count/With Diff Urgent
Comprehensive Metabolic Panel Urgent
Lactic Acid Urgent
Urinalysis Reflex To Culture Urgent
Date Specimen was Collected: 01/02/24
Time Specimen was Collected: 17:20
Blood Culture Urgent
STIVEN Source: Blood/Venous
Specimen Description:
Blood Culture Urgent
STIVEN Source: Blood/Venous
Specimen Description:
01/02/24 18:14
0.9% Sodium Chloride 1000 ml [Nss] 1,000 ml IV BOLUS
Acetaminophen [Tylenol] 650 mg PO NOW STA
Abnormal Lab Results
01/02/24
17:45
WBC 13.6 H 10^3/uL
(4.8-10.8)
RBC 4.08 L 10^6/uL
(4.20-5.40)
Hct 34.9 L %
(37.0-47.0)
Abs Immat Gran (auto) 0.1 H 10^3/uL
(0-0.05)
Absolute Neuts (auto) 12.2 H 10^3/uL
(1.4-6.5)
Absolute Lymphs (auto) 0.5 L 10^3/uL
(1.2-3.4)
Absolute Monos (auto) 0.7 H 10^3/uL
(0.1-0.6)
Immature Gran % 0.7 H %
(0-0.5)
Neutrophils % 89.8 H %
(42.2-75.2)
Lymphocytes % 3.9 L %
(20.5-51.1)
Potassium 3.4 L mmol/L
(3.5-5.1)
Chloride 97 L mmol/L
(98-107)
Glucose 188 H mg/dl
(70-99)
Lactic Acid 2.4 H mmol/L
(0.7-2.0)
SARS-CoV-2 Antigen Positive A
(Negative)
01/02/24 17:45
01/02/24 17:45
Vital Signs
Initial and Last Documented VS:
Initial Vital Signs
Temp Pulse Resp Pulse Ox
102.5 F H 100 22 88
01/02/24 17:13 01/02/24 17:13 01/02/24 17:13 01/02/24 17:13
Last Documented Vital Signs
Temp Pulse Resp BP Pulse Ox
102.5 F H 111 27 175/82 94
01/02/24 17:13 01/02/24 18:30 01/02/24 18:30 01/02/24 18:14 01/02/24 18:30
MDM/Problems Addressed
Differential Diagnosis Includes:
Patient here with rigors noted to have temperature upon triage of 102. She is tachycardic. Concern for infection. Will check urine COVID chest x-ray labs and blood cultures x 2.
*Critical Care Note
Total Time (30-74mins, 75-104mins- exclusive of procedures): Not Applicable
Update Note
Update Note:
COVID-positive chest x-ray clear patient has elevated white count with lactic acidosis. Urinalysis negative. Possible sepsis from COVID. Will hydrate and give Tylenol. Admit to hospital suspect family
ED Attending Note
-
Portions of this chart may have been created with voice recognition software.� Occasional wrong word or��sound alike� substitutions may have occurred due to the inherent limitations of voice recognition software.
Discharge Plan
Departure
Patient Disposition: Admit
Date of Disposition: 01/02/24
Time of Disposition: 20:23
Admit to: Telemetry
Presentation/result/management discussed w/ accepting MD/DO: Hospitalist
Discharge Problem:
COVID-19
Prescriptions:
No Action
albuterol sulfate 2.5 mg /3 mL (0.083 %) Solution For Nebulization
2.5 mg INHALATION R Q4HPRN PRN (Reason: wheezing)
polyethylene glycol 3350 17 gram Powder In Packet
17 g PO MOWEFR
sertraline 100 mg Tablet
100 mg PO DAILY
amlodipine 5 mg Tablet
5 mg PO DAILY
levothyroxine 25 mcg Tablet
25 mcg PO DAILY@06
docusate sodium 100 mg Capsule
100 mg PO DAILY
metoprolol succinate 25 mg Tablet Extended Release 24 Hr
25 mg PO BID
metronidazole 1 % Gel
1 applic TOPICAL BID
Rx Instructions:
facial area
pantoprazole 40 mg Tablet,Delayed Release (Dr/Ec)
40 mg PO BID 30 Days Qty: 60 0RF
polyethylene glycol 3350 [Miralax] 17 gram Powder In Packet
17 g PO DAILYPRN PRN (Reason: constipation)
acetaminophen 500 mg Tablet
500 mg PO Q6HPRN MDD 3000 mg PRN (Reason: mild pain/fever)
guaifenesin 100 mg/5 mL Liquid
200 mg PO Q4HPRN PRN (Reason: cough)
cholecalciferol (vitamin D3) [Vitamin D3] 50 mcg (2,000 unit) Tablet
150 mcg PO DAILY
Slow Release Iron 140 mg (45 mg iron) Tablet Extended Release
140 mg PO DAILY
potassium chloride 10 mEq Tablet Extended Release
10 meq PO DAILYPRN PRN (Reason: when lasix is given)
phenylephrine HCl 0.25 % Suppository
1 supp MS BIDPRN PRN (Reason: hemorrhoids)
Hemorrhoidal Ointment
1 applic MS Q6HPRN PRN (Reason: hemorrhoids)
Brent Protect (zinc oxide) 12 % Cream
1 applic TOPICAL BID
enoxaparin 40 mg/0.4 mL Syringe
40 mg SC DAILY Qty: 22 0RF
oxycodone 5 mg Tablet
5 mg PO Q4HPRN PRN (Reason: mild pain) Qty: 10 0RF
Referrals:
Osei Timmons DO [Family Provider] -
Interventions
Interventions:
*Risk Screen - Suicide Last Done: 01/02/24 17:13
*General Assessment Last Done: 01/02/24 17:13
*Neglect/Abuse Screening Last Done: 01/02/24 17:13
ED- Fall Risk Assessment Last Done: 01/02/24 17:13
*ED COVID-19 Vaccine History Last Done: 01/02/24 17:13
ED- Cardiac Assessment Last Done: 01/02/24 17:43
ED- Neurological Assessment Last Done: 01/02/24 17:43
ED- Pulmonary Assessment Last Done: 01/02/24 17:43
Discharge Date and Time
Print Language: WOLOF
[2024-01-02 18:05] LABS: COVID-19 Antigen Positive (Negative)
[2024-01-02 18:12] LABS: Lactic Acid 2.4 mmol/L (0.7-2.0)
[2024-01-02 18:14] VITALS: BP 175/82
[2024-01-02 18:14] LABS: % Basophils 0.4 % (0-2); % Immature Granulocytes 0.7 % (0-0.5); % Lymphocytes 3.9 % (20.5-51.1); % Monocytes 5.2 % (1.7-9.3); % Neutrophils 89.8 % (42.2-75.2); ALT (SGPT) 21 U/L (0-35); AST (SGOT) 28 U/L (14-36); Absolute Basophils 0.1 10^3/uL (0-0.2); Absolute Immature Granulocytes 0.1 10^3/uL (0-0.05); Absolute Lymphocytes 0.5 10^3/uL (1.2-3.4); Absolute Monocytes 0.7 10^3/uL (0.1-0.6); Absolute Neutrophils 12.2 10^3/uL (1.4-6.5); Alkaline Phosphatase 121 U/L (38-126); Blood Urea Nitrogen 13 mg/dl (7-17); Calcium 9.9 mg/dl (8.4-10.2); Carbon Dioxide 22 mmol/L (22-30); Chloride 97 mmol/L (98-107); Glucose 188 mg/dl (70-99); Hematocrit 34.9 % (37.0-47.0); Mean Corp Hgb Conc. 34.4 g/dL (33.0-37.0); Mean Corpuscular Hgb 29.4 pg (27.0-31.0); Mean Corpuscular Volume 85.5 fL (81.0-99.0); Mean Platelet Volume 9.4 fL (7.4-10.4); Nucleated Red Blood Cells % 0 %; Platelet Count 294 10^3/uL (130-400); Potassium 3.4 mmol/L (3.5-5.1); Red Blood Cell Count 4.08 10^6/uL (4.20-5.40); Red Cell Dist. Width 14.5 % (11.5-14.5); Sodium 135 mmol/L (135-145); Total Bilirubin 0.8 mg/dl (0.2-1.3); Total Protein 6.4 g/dl (6.3-8.2); White Blood Cell Count 13.6 10^3/uL (4.8-10.8); eGFR > 60.00
[2024-01-02] MEDS: TYLENOL 650 MG PO (18:25)
[2024-01-02] MEDS: NSS 1000 IV (18:25)
[2024-01-02 19:00] VITALS: BP 135/73
[2024-01-02 19:09] LABS: Urine Albumin Trace (Neg - Trace); Urine Bilirubin Negative (Negative); Urine Character Clear (Clear); Urine Color Yellow; Urine Glucose Negative (Negative); Urine Ketone Negative (Negative); Urine Leukocyte Negative (Negative); Urine Nitrite Negative (Negative); Urine Occult Blood Negative (Negative); Urine Specific Gravity 1.015 (<1.030); Urine Urobilinogen Negative (Neg - 1+); Urine pH 6.5 (5.0-9.0)
[2024-01-02 20:00] VITALS: BP 115/59
[2024-01-02 21:00] VITALS: BP 108/55
--- NOTE | 2024-01-02 21:04 | HPS.HSE ---
Family Physician
-
Family Physician: Osei Timmons DO
Chief Complaint
-
Chills
History of Present Illness
Patient is an 83y F with PMH significant for senile dementia, A-Fib and recent hospitalization for R hip fracture who [place] to ED from local [place] for evaluation of chills / fatigue. Patient underwent ORIF of the R hip on 12/20/23. She was
discharged to SNF for rehab and was noted by family today be appear not herself. She was having evident chills / shakes and was less interactive / alert than usual. Patient was sent to the ED for evaluation where she was noted o have fever to
102.5 and tested positive for COVID-19 infection.
Patient opens eyes but is not verbal and does not reliably follow commands.
Medical History
Past Medical History
Past Medical History: Reports Other
Additional Past Medical History:
esophagitis
dysphagia
hiatal hernia
HTN
depression
dementia
hydrocephalus with shunt
atrial fib
OCD
Past Surgical History: Reports Other
Additional Past Surgical History:
ORIF R Hip
bladder lift
left foot surgery
shunt
Social History
Tobacco: Former Smoker
Alcohol: None
Living: Residential
Family History
Family History: Not pertinent
Allergies / Home Medications
Allergies reflects when Allergies were last updated in [facility].
Home Medications with original date entered in [facility]
Allergy/Medication List:
Allergies
Allergy/AdvReac Type Severity Reaction Status Date / Time
bupropion Allergy Rash Verified 01/02/24 18:23
erythromycin base Allergy Rash Verified 01/02/24 18:23
Home Medications
albuterol sulfate 2.5 mg/3 mL (0.083 %) solution for nebulization 2.5 mg inhalation R Q4HPRN PRN wheezing 01/20/22
amlodipine 5 mg tablet 5 mg PO DAILY Blood pressure 01/20/22
docusate sodium 100 mg capsule 100 mg PO DAILY Constipation 01/20/22
levothyroxine 25 mcg tablet 25 mcg PO DAILY@06 Thyroid 01/20/22
metoprolol succinate 25 mg tablet,extended release 24 hr 25 mg PO BID Blood pressure 01/20/22
metronidazole 1 % topical gel 1 applic topical BID rosacea 01/20/22
polyethylene glycol 3350 17 gram oral powder packet 17 g PO MOWEFR Constipation 01/20/22
sertraline 100 mg tablet 100 mg PO DAILY Depression 01/20/22
pantoprazole 40 mg tablet,delayed release 40 mg PO BID 30 days #60 tabs 01/22/22
acetaminophen 500 mg tablet 1,000 mg PO Q12H 03/31/23
ferrous sulfate 140 mg (45 mg iron) tablet,extended release (Slow Release Iron) 140 mg PO DAILY Supplement 03/31/23
guaifenesin 100 mg/5 mL oral liquid 200 mg PO Q4HPRN PRN cough 03/31/23
phenylephrine-shark liver oil-mineral oil-petrolatum rectal ointment (Hemorrhoidal ointment) 1 applic NV Q6HPRN PRN constipation 12/19/23
enoxaparin 40 mg/0.4 mL subcutaneous syringe 40 mg (0.4 mL) SC DAILY #22 mL 12/24/23
acetaminophen 325 mg tablet (Tylenol) 650 mg PO DAILYPRN PRN fever >100.4 01/02/24
acetaminophen 325 mg tablet (Tylenol) 650 mg PO DAILYPRN PRN mild pain 01/02/24
acetaminophen 500 mg tablet (Tylenol Extra Strength) 500 mg PO DAILYPRN PRN mild pain 01/02/24
bisacodyl 10 mg rectal suppository 10 mg NV DAILYPRN PRN day 3 no bm, mom ineffec 01/02/24
cholecalciferol (vitamin D3) 1,250 mcg (50,000 unit) capsule 1,250 mcg PO QMONTH 01/02/24
cocoa butter-shark liver oil rectal suppository 1 supp NV BIDPRN PRN constipation 01/02/24
magnesium hydroxide 400 mg/5 mL oral suspension (Milk of Magnesia) 30 ml PO HSPRN PRN constipation 01/02/24
ondansetron HCl 4 mg tablet 4 mg PO Q8HPRN PRN nausea 01/02/24
sennosides 8.6 mg-docusate sodium 50 mg tablet (Senna-S) 1 tab-cap PO QPM 01/02/24
tramadol 50 mg tablet 50 mg PO DAILY 01/02/24
Review of Systems
-
Unable to obtain full review of systems at this time due to: Dementia
Physical Exam
Vital Signs
Vital Signs
Temp Pulse Resp BP Pulse Ox
102.5 F H 89 19 115/59 96
01/02/24 17:13 01/02/24 20:45 01/02/24 20:45 01/02/24 20:00 01/02/24 20:45
Physical Exam
General: Other (83y F in no apparent distress. Eyes open / awake but not interactive. Does not answer questions or follow commands.)
HEENT: Moist mucous membranes and PERRLA
Respiratory: Other (Decreased BS bilaterally, Few scattered rales. No wheezes.)
Cardiac: S1/S2, Regular Rhythm and Murmur (II/ CASSANDRA)
GI: Soft, Non Tender, Non Distended and Normal Bowel Sounds
Musculoskeletal: Other (R Hip incisions intact with kailyn in place. Some ecchymosis around site. No bleeding / discharge.)
Neuro: Awake; No Oriented
Laboratory Results
-
01/02/24 17:45
01/02/24 17:45
Laboratory Results
Lactic Acid 2.4 mmol/L (0.7-2.0) H 01/02/24 17:45
Total Bilirubin 0.8 mg/dl (0.2-1.3) 01/02/24 17:45
AST 28 U/L (14-36) 01/02/24 17:45
ALT 21 U/L (0-35) 01/02/24 17:45
Alkaline Phosphatase 121 U/L (38-126) 01/02/24 17:45
Impression/Plan
-
A/P: Patient is a 83y F with PMH significant for dementia, A-Fib and recent R hip ORIF who presents to ED from local [place] for evaluation of chills and change in mental status.
COVID-19 Infection
Acute TME secondary to the above
- Admit for further evaluation and treatment.
- Fever to 102.5 here, not at baseline mental state. No hypoxemia appreciated here.
- Will begin Paxlovid given risks for severe disease.
- Follow proper precautions.
- Follow for clinical improvement.
s/p ORIF R Hip
- Incisions are well-appearing at present.
- PT / OT evals to continue therapy / mobility.
Paroxysmal Atrial Fibrillation
- Stable. No on chronic OAC due to fall risk.
- Currently on prophylactic Lovenox s/p hip surgery as noted above.
- Continue metoprolol.
- Monitor on telemetry.
Benign Hypertension
- Hold amlodipine acutely.
- Holding parameters for metoprolol.
Senile Dementia
- Patient pleasantly confused at baseline - but somewhat interactive.
- Currently awake but non-verbal.
- Follow for changes as noted above.
DVT Prophylaxis: Continue Lovenox
Code Status: DNR
[2024-01-02 22:11] VITALS: BP 132/62
[2024-01-02 22:15] VITALS: BMI 27.5
--- NOTE | 2024-01-02 22:30 | PTCARENOTE ---
Received patient from ED. Patient transferred directly to the bed from the stretcher. Patient assessed. Patient lethargic, non-verbal. Patient on 4L oxygen, 3 small incisions noted with kailyn on patient's right hip/thigh (hx of recent hip fx).
Patient not awake for swallow eval... NPO per protocol. VSS. Patient placed on bed alarm for safety.
[2024-01-03] VITALS (7 sets, daily range): BP systolic 111–160; BP diastolic 47–75; PULSE 59–62; O2SAT 96–97; BMI 27.5
[2024-01-03 01:10] LABS: Lactic Acid 1.5 mmol/L (0.7-2.0)
--- NOTE | 2024-01-03 04:00 | PTCARENOTE ---
Patient had a wet diaper and a medium dark stool. She is starting to act more responsive..talking some.
[2024-01-03] MEDS: SYNTHROID PO (05:28)
--- NOTE | 2024-01-03 07:07 | W.PN.HOSP.TC ---
Today's Communication/Plan
-
cont paxlovid
wean O2 supplementation as tolerated
PT/OT
Assessment / Plan
Assessment / Plan
Physical Exam
General: No acute distress
HEENT: Moist mucous membranes and PERRLA
Respiratory: Clear to auscultation though breath sounds are decreased on 3L NC
Cardiac: S1/S2, Regular Rhythm and Murmur (II/ CASSANDRA)
GI: Soft, Non Tender, Non Distended and Normal Bowel Sounds
Musculoskeletal: Other (R Hip incisions intact with kailyn in place. Some ecchymosis around site. No bleeding / discharge.)
Neuro: Awake; No Oriented
A/P: Patient is a 83y F with PMH significant for dementia, A-Fib and recent R hip ORIF who presents to ED from local [place] for evaluation of chills and change in mental status.
COVID-19 Infection
Acute TME secondary to the above
- Fever to 102.5, AMS, since improved
- cont Paxlovid
- Follow proper precautions.
- Follow for clinical improvement.
s/p ORIF R Hip
- Incisions are well-appearing at present.
- PT / OT evals to continue therapy / mobility.
Paroxysmal Atrial Fibrillation
- Stable. No on chronic OAC due to fall risk.
- Currently on prophylactic Lovenox s/p hip surgery as noted above.
- Continue metoprolol.
- Monitor on telemetry.
Benign Hypertension
- Hold amlodipine acutely.
- Holding parameters for metoprolol.
Senile Dementia
- Patient pleasantly confused at baseline - but somewhat interactive.
- Mental status appears baseline at this time
- Monitor
DVT Prophylaxis: Continue Lovenox
Code Status: DNR
discussed with patients, patient's cousin Tracey OSEGUERA, and patient's daughter Cleo
I spent a total of 50 minutes with the patient or on the floor. More than 50% of this time involved counseling and coordination of care.
Anticipated Discharge: 24 - 48 hours
Subjective/Interval History
-
Date of Service: January 03, 2024
AOx2 disoriented to time. Awake alert conversant though some confusion noted. Cousin also OUMAR Webb present during evaluation, notes mental status baseline at this time.
Objective Data
-
Labs:
Laboratory Results
01/03/24
06:52
WBC Pending
Hgb Pending
Hct Pending
Plt Count Pending
Sodium Pending
Potassium Pending
Chloride Pending
Carbon Dioxide Pending
BUN Pending
Creatinine Pending
Glucose Pending
Calcium Pending
Vital Signs:
Vital Signs
Temp Pulse Resp BP Pulse Ox
98.2 F 68 22 135/69 96
01/03/24 03:35 01/03/24 03:35 01/03/24 03:35 01/03/24 03:35 01/03/24 03:35
[2024-01-03] MEDS: PROTONIX 40 MG PO ×2 (07:31→20:39)
[2024-01-03] MEDS: TOPROL XL 25 MG PO ×2 (07:31→20:39)
[2024-01-03 07:32] LABS: Hemoglobin 9.9 g/dL (12.0-16.0); Mean Corp Hgb Conc. 34.1 g/dL (33.0-37.0); Mean Corpuscular Hgb 29.1 pg (27.0-31.0); Mean Corpuscular Volume 85.3 fL (81.0-99.0); Mean Platelet Volume 9.6 fL (7.4-10.4); Platelet Count 240 10^3/uL (130-400); Red Cell Dist. Width 14.5 % (11.5-14.5); White Blood Cell Count 6.4 10^3/uL (4.8-10.8)
[2024-01-03] MEDS: ZOLOFT 100 MG PO (07:32)
[2024-01-03] MEDS: LOVENOX 40 MG SC (07:32)
[2024-01-03] MEDS: TYLENOL 1000 MG PO ×2 (07:32→21:17)
[2024-01-03] MEDS: PAXLOVID 2X150 MG-100 MG DOSE PACK 1 DOSE PO ×2 (07:32→20:39)
[2024-01-03 07:52] LABS: Blood Urea Nitrogen 12 mg/dl (7-17); Calcium 9.4 mg/dl (8.4-10.2); Carbon Dioxide 26 mmol/L (22-30); Chloride 102 mmol/L (98-107); Estimated Creatinine Clearance 60 ml/min; Glucose 100 mg/dl (70-99); Potassium 3.9 mmol/L (3.5-5.1); Sodium 138 mmol/L (135-145); eGFR > 60.00
--- NOTE | 2024-01-03 09:43 | PTCARENOTE ---
Patient drowsy this AM but rouses to verbal and tactile stimuli, able open eyes, respond and follow commands appropriately. Patient states no concerns at this time. Swallow screening performed by this RN, patient followed commands appropriately with
no signs of aspiration, MD made aware and regular diet order placed, patient assisted in taking scheduled AM medications whole one at a time with water. Speech consulted for history of dysphagia in history and physical. Patient's caregiver at
bedside, stated patient follows regular diet with thin liquids at home but needs assistance with feeding, typically takes pills crushed in applesauce d/t patient 'spitting them up' otherwise. Patient with saturated brief, changed, turned, and
repositioned by this RN and tech. Skin intact, R hip incision sites clean, dry and intact with minimal bruising around R hip. POX 98% on 4L O2, O2 titrated to 3L - patient 96%, states no concerns with breathing at this time.
[2024-01-03 13:28] LABS: Hematocrit 29.5 % (37.0-47.0)
[2024-01-03] MEDS: TYLENOL PO (15:26)
[2024-01-04 03:12] VITALS: BP 139/60
[2024-01-04] MEDS: SYNTHROID 25 MCG PO (04:12)
--- NOTE | 2024-01-04 07:18 | W.PN.HOSP.TC ---
Addendum entered and electronically signed by Anup Chatman MD 01/05/24 02:40:
correction to following documentation Héctor Webb RN not cousin
Original Note:
Today's Communication/Plan
-
wean O2 supplementation as tolerated
cont Paxlovid
PT/OT
discharge planning SNF rehab
Assessment / Plan
Assessment / Plan
Physical Exam
General: No acute distress
HEENT: Moist mucous membranes and PERRLA
Respiratory: Clear to auscultation though breath sounds are decreased on 3L NC
Cardiac: S1/S2, Regular Rhythm and Murmur (II/ CASSANDRA)
GI: Soft, Non Tender, Non Distended and Normal Bowel Sounds
Musculoskeletal: Other (R Hip incisions intact with kailyn in place. Some ecchymosis around site. No bleeding / discharge.)
Neuro: Awake; No Oriented
A/P: Patient is a 83y F with PMH significant for dementia, A-Fib and recent R hip ORIF who presents to ED from local [place] for evaluation of chills and change in mental status.
COVID-19 Infection
Acute TME secondary to the above
- Fever to 102.5, AMS, since improved, later fever spike to 100.8 01/02, since afebrile
- cont Paxlovid
- Follow proper precautions.
- Follow for clinical improvement.
s/p ORIF R Hip
- Incisions are well-appearing at present.
- PT / OT evals appreciated
Paroxysmal Atrial Fibrillation
- Stable. Not on chronic OAC due to fall risk.
- Currently on prophylactic Lovenox s/p hip surgery as noted above.
- Continue metoprolol.
- Monitor on telemetry.
Benign Hypertension
- Hold amlodipine acutely.
- Holding parameters for metoprolol.
Senile Dementia
- Patient pleasantly confused
- Mental status appears baseline at this time
- Monitor
DVT Prophylaxis: Continue Lovenox
Code Status: DNR
discussed with patient and patient's cousin Tracye OSEGUERA
I spent a total of 40 minutes with the patient or on the floor. More than 50% of this time involved counseling and coordination of care.
Anticipated Discharge: 24 - 48 hours
Subjective/Interval History
-
Date of Service: January 04, 2024
No acute distress appears well. Cousin OUMAR Webb present during evaluation. Weaning down on oxygen supplementation 2L (4L on presentation). Denies new acute issues. Reports overall feeling well
Objective Data
-
Labs:
Laboratory Results
01/04/24
06:55
WBC Pending
Hgb Pending
Hct Pending
Plt Count Pending
Sodium Pending
Potassium Pending
Chloride Pending
Carbon Dioxide Pending
BUN Pending
Creatinine Pending
Glucose Pending
Calcium Pending
Vital Signs:
Vital Signs
Temp Pulse Resp BP Pulse Ox
98.1 F 60 18 139/60 99
01/04/24 03:12 01/04/24 03:12 01/04/24 03:12 01/04/24 03:12 01/04/24 03:12
I&O
01/03/24 01/04/24 01/05/24
06:59 06:59 06:59
Intake Total 480 / 480
Balance 480 / 480
[2024-01-04 07:20] LABS: Hematocrit 31.2 % (37.0-47.0); Hemoglobin 10.5 g/dL (12.0-16.0); Mean Corp Hgb Conc. 33.7 g/dL (33.0-37.0); Mean Corpuscular Hgb 28.9 pg (27.0-31.0); Mean Platelet Volume 9.4 fL (7.4-10.4); Platelet Count 225 10^3/uL (130-400); Red Blood Cell Count 3.63 10^6/uL (4.20-5.40); Red Cell Dist. Width 14.5 % (11.5-14.5); White Blood Cell Count 4.6 10^3/uL (4.8-10.8)
[2024-01-04 07:45] VITALS: BP 108/70
[2024-01-04 08:30] LABS: Blood Urea Nitrogen 11 mg/dl (7-17); Calcium 9.6 mg/dl (8.4-10.2); Carbon Dioxide 27 mmol/L (22-30); Chloride 100 mmol/L (98-107); Estimated Creatinine Clearance 60 ml/min; Glucose 79 mg/dl (70-99); Magnesium 1.8 mg/dl (1.6-2.3); Phosphorus 3.3 mg/dl (2.5-4.5); Potassium 3.6 mmol/L (3.5-5.1); Sodium 139 mmol/L (135-145); eGFR > 60.00
[2024-01-04] MEDS: ZOLOFT 100 MG PO (10:35)
[2024-01-04] MEDS: PROTONIX 40 MG PO ×2 (10:35→22:49)
[2024-01-04] MEDS: LOVENOX 40 MG SC (10:35)
[2024-01-04] MEDS: TOPROL XL 25 MG PO ×2 (10:36→22:50)
[2024-01-04] MEDS: TYLENOL 1000 MG PO ×3 (10:36→22:49)
[2024-01-04] MEDS: PAXLOVID 2X150 MG-100 MG DOSE PACK 1 DOSE PO ×2 (10:37→22:49)
[2024-01-04 11:45] VITALS: BP 130/58
--- NOTE | 2024-01-04 14:24 | CM ---
Initial assessment complete via phone with primary contact/daughter, Cleo Luke # [phone]
Pharmacy verified: [facility]; [id number]
Patient's daughter reported that patient admission via ED from [facility] for Rehab post Right Intertrochanteric Hip fracture. Prior to fracture, patient was living @ [facility]
Per daughter, patient has Dementia; is oriented to person and only; confused; requires assistance with personal care; 2 person assist; history of hydrocephalus and had a shunt inserted 3 yrs ago
Plan: Per daughter patient will return to [facility] when medically stable via ambulance
[2024-01-04 15:00] VITALS: BP 136/62
[2024-01-04 19:19] VITALS: BP 124/52
[2024-01-04 22:49] VITALS: BP 139/70
[2024-01-05] VITALS (8 sets, daily range): BP systolic 133–173; BP diastolic 59–75; PULSE 56; O2SAT 98
[2024-01-05] MEDS: SYNTHROID 25 MCG PO (05:54)
[2024-01-05] MEDS: PROTONIX 40 MG PO ×2 (09:33→20:49)
[2024-01-05] MEDS: TOPROL XL 25 MG PO ×2 (09:34→20:49)
[2024-01-05] MEDS: ZOLOFT 100 MG PO (09:34)
[2024-01-05] MEDS: TYLENOL 1000 MG PO ×3 (09:35→20:49)
[2024-01-05] MEDS: PAXLOVID 2X150 MG-100 MG DOSE PACK 1 DOSE PO ×2 (09:36→20:50)
[2024-01-05] MEDS: LOVENOX 40 MG SC (09:37)
[2024-01-05] MEDS: MIRALAX 17 GRAMS PO (09:38)
[2024-01-05 09:44] LABS: Hematocrit 33.4 % (37.0-47.0); Mean Corp Hgb Conc. 32.9 g/dL (33.0-37.0); Mean Corpuscular Hgb 28.9 pg (27.0-31.0); Mean Corpuscular Volume 87.9 fL (81.0-99.0); Mean Platelet Volume 9.8 fL (7.4-10.4); Platelet Count 291 10^3/uL (130-400); Red Cell Dist. Width 14.5 % (11.5-14.5); White Blood Cell Count 3.8 10^3/uL (4.8-10.8)
[2024-01-05 10:01] LABS: Blood Urea Nitrogen 10 mg/dl (7-17); Calcium 9.7 mg/dl (8.4-10.2); Carbon Dioxide 28 mmol/L (22-30); Chloride 97 mmol/L (98-107); Estimated Creatinine Clearance 51 ml/min; Glucose 99 mg/dl (70-99); Potassium 3.4 mmol/L (3.5-5.1); Sodium 137 mmol/L (135-145); eGFR > 60.00
--- NOTE | 2024-01-05 12:00 | PTCARENOTE ---
Pts BP this AM was 173/75, made aware. Norvasc ordered with PRN hydralazine, BP rechecked and came down to 145/67.
--- NOTE | 2024-01-05 12:16 | CM ---
Addendum entered by Polly Monaco RN 01/05/24 16:05:
IMM reviewed with the patient's daughter via telephone.
Original Note:
Reviewed the chart notes and spoke with Cem Admissions Liaison at [facility]. Per Cem, patient is short term to transition onto correction. Require auth to return.
[facility] NPI # [id number]; Dr. Timmons NPI# [id number]
Call report to: [phone]
Fax report to: [phone]
Plan: Discharge back to [facility] once medically stable and auth obtained.
--- NOTE | 2024-01-05 12:18 | W.PN.HOSP.TC ---
Today's Communication/Plan
-
Monitor vital signs see plan
Restart amlodipine, add hydralazine as needed
Continue with Paxlovid, wean oxygen as tolerated
Discharge planning
Assessment / Plan
Assessment / Plan
Physical Exam
General: No acute distress
HEENT: Moist mucous membranes and PERRLA
Respiratory: Clear to auscultation though breath sounds are decreased on 3L NC
Cardiac: S1/S2, Regular Rhythm and Murmur (II/ CASSANDRA)
GI: Soft, Non Tender, Non Distended and Normal Bowel Sounds
Musculoskeletal: Other (R Hip incisions intact with kailyn in place. Some ecchymosis around site. No bleeding / discharge.)
Neuro: Awake; No Oriented
A/P: Patient is a 83y F with PMH significant for dementia, A-Fib and recent R hip ORIF who presents to ED from local [place] for evaluation of chills and change in mental status.
COVID-19 Infection
Acute TME secondary to the above
Acute hypoxic respiratory sufficiency likely secondary to above, Now improving. Wean oxygen as tolerated
- Fever to 102.5, AMS, since improved, later fever spike to 100.8 01/02, since afebrile
- cont Paxlovid
- Follow proper precautions.
- Follow for clinical improvement.
s/p ORIF R Hip
- Incisions are well-appearing at present.
- PT / OT evals appreciated
Paroxysmal Atrial Fibrillation
- Stable. Not on chronic OAC due to fall risk.
- Currently on prophylactic Lovenox s/p hip surgery as noted above.
- Continue metoprolol.
- Monitor on telemetry.
Benign Hypertension
Restart amlodipine
- Holding parameters for metoprolol.
Hydralazine as needed
Senile Dementia
- Patient pleasantly confused
- Mental status appears baseline at this time
- Monitor
DVT Prophylaxis: Continue Lovenox
Code Status: DNR
Anticipated Discharge: Within 24 hours
Subjective/Interval History
-
Date of Service: January 05, 2024
Denies pain
Objective Data
-
Labs:
Laboratory Results
01/05/24
08:36
WBC 3.8 L
Hgb 11.0 L
Hct 33.4 L
Plt Count 291 D
Sodium 137
Potassium 3.4 L
Chloride 97 L
Carbon Dioxide 28
BUN 10
Creatinine 0.7
Glucose 99
Calcium 9.7
Vital Signs:
Vital Signs
Temp Pulse Resp BP Pulse Ox
98.3 F 56 16 173/75 98
01/05/24 07:45 01/05/24 09:34 01/05/24 07:45 01/05/24 09:34 01/05/24 07:45
I&O
01/04/24 01/05/24 01/06/24
06:59 06:59 06:59
Intake Total 480 / 480 570 / 570
Balance 480 / 480 570 / 570
--- NOTE | 2024-01-05 13:58 | PN.CDI ---
CDI
- -
CDI:
Physician Documentation Request
Admit Date: 01/03/24 15:07
Dear Doctor Toñito,
Patient is admitted with covid infection.
01/01 wbc 13.6 temp 102.5 Heart rate 100-111 Resp. rate 22-30 lactic acid 2.4
Please clarify which of the following most accurately describes the status of the patient's infection:
Sepsis
- Systemic manifestations of infection, with 2 or more SIRS criteria which include:
- Fever >100.4 degrees F or hypothermia < 96.8 degrees F
- Leukocytosis - WBC > 12,000 or leukopenia - WBC < 4,000 or > 10% bands
- Tachycardia > 90 beats per minute
- Tachypnea - RR > 20 breaths per minute or PaCO2 , 32mmHg
Source: Merck Manual 2013
Severe Sepsis
Infection Only, Without Systemic Illness
Other
Use of terms such as suspected, likely, concern for, or probable (associated with a specific diagnosis that is being evaluated, monitored, or treated as if it exists) are acceptable and can be coded in the inpatient setting, when documented at the
time of discharge.
Thank you,
Helena Elizondo RN, BSN
CDI Specialist
tiger text
Please use your independent medical judgment in providing your response.
[2024-01-05] MEDS: NORVASC 5 MG PO (15:33)
[2024-01-06] VITALS (8 sets, daily range): BP systolic 140–176; BP diastolic 70–89; PULSE 58; O2SAT 97–98
[2024-01-06] MEDS: SYNTHROID 25 MCG PO (04:47)
[2024-01-06 07:34] LABS: Hematocrit 35.9 % (37.0-47.0); Hemoglobin 12.2 g/dL (12.0-16.0); Mean Corpuscular Hgb 29.5 pg (27.0-31.0); Mean Corpuscular Volume 86.9 fL (81.0-99.0); Mean Platelet Volume 9.5 fL (7.4-10.4); Platelet Count 263 10^3/uL (130-400); Red Blood Cell Count 4.13 10^6/uL (4.20-5.40); Red Cell Dist. Width 14.2 % (11.5-14.5); White Blood Cell Count 4.4 10^3/uL (4.8-10.8)
[2024-01-06 07:54] LABS: Blood Urea Nitrogen 9 mg/dl (7-17); Carbon Dioxide 28 mmol/L (22-30); Chloride 100 mmol/L (98-107); Estimated Creatinine Clearance 60 ml/min; Glucose 89 mg/dl (70-99); Potassium 3.3 mmol/L (3.5-5.1); Sodium 139 mmol/L (135-145); eGFR > 60.00
[2024-01-06] MEDS: PROTONIX 40 MG PO ×2 (08:07→20:39)
[2024-01-06] MEDS: PAXLOVID 2X150 MG-100 MG DOSE PACK 1 DOSE PO ×2 (08:07→20:38)
[2024-01-06] MEDS: ZOLOFT 100 MG PO (08:07)
[2024-01-06] MEDS: NORVASC 5 MG PO (08:07)
[2024-01-06] MEDS: TOPROL XL 25 MG PO (08:07)
[2024-01-06] MEDS: TYLENOL 1000 MG PO ×3 (08:07→22:13)
[2024-01-06] MEDS: LOVENOX 40 MG SC (08:08)
[2024-01-06] MEDS: KCL 40 MEQ PO (09:48)
--- NOTE | 2024-01-06 11:19 | W.PN.HOSP.TC ---
Today's Communication/Plan
-
Monitor vital signs
see plan
Repeat potassium
Discharge planning
Continue Paxlovid
Called daughter, left voicemail
Assessment / Plan
Assessment / Plan
Physical Exam
General: No acute distress
HEENT: Moist mucous membranes and PERRLA
Respiratory: Clear to auscultation, no wheezing
Cardiac: S1/S2, Regular Rhythm and Murmur (II/ CASSANDRA)
GI: Soft, Non Tender, Non Distended and Normal Bowel Sounds
Musculoskeletal: Other (R Hip incisions intact with kailyn in place. Some ecchymosis around site. No bleeding / discharge.)
Neuro: Awake; No Oriented
A/P: Patient is a 83y F with PMH significant for dementia, A-Fib and recent R hip ORIF who presents to ED from local [place] for evaluation of chills and change in mental status.
COVID-19 Infection
sepsis likely 2/2 covid
Acute TME secondary to the above
Acute hypoxic respiratory sufficiency likely secondary to above, Now improving. Wean oxygen as tolerated
- Fever to 102.5, AMS, since improved, later fever spike to 100.8 /, since afebrile
- cont Paxlovid
- Follow proper precautions.
- Follow for clinical improvement.
Hypokalemia
replete
s/p ORIF R Hip
- Incisions are well-appearing at present.
- PT / OT evals appreciated
Paroxysmal Atrial Fibrillation
- Stable. Not on chronic OAC due to fall risk.
- Currently on prophylactic Lovenox s/p hip surgery as noted above.
- Continue metoprolol.
- Monitor on telemetry.
Benign Hypertension
Restart amlodipine
- Holding parameters for metoprolol.
Hydralazine as needed
Senile Dementia
- Patient pleasantly confused
- Mental status appears baseline at this time
- Monitor
DVT Prophylaxis: Continue Lovenox
Code Status: DNR
Anticipated Discharge: Within 24 hours
Subjective/Interval History
-
Date of Service: January 06, 2024
denies chest pain
Objective Data
-
Labs:
Laboratory Results
01/06/24
07:09
WBC 4.4 L
Hgb 12.2
Hct 35.9 L
Plt Count 263
Sodium 139
Potassium 3.3 L
Chloride 100
Carbon Dioxide 28
BUN 9
Creatinine 0.6
Glucose 89
Calcium 10.0
Vital Signs:
Vital Signs
Temp Pulse Resp BP Pulse Ox
97.6 F 77 16 173/89 94
01/06/24 07:35 01/06/24 08:07 01/06/24 07:35 01/06/24 08:07 01/06/24 07:35
I&O
01/05/24 01/06/24 01/07/24
06:59 06:59 06:59
Intake Total 570 / 570 570 / 570
Balance 570 / 570 570 / 570
--- NOTE | 2024-01-06 12:56 | CM ---
Addendum entered by Polly Monaco RN 01/07/24 12:10:
Patient's daughter Cleo updated on discharge plans.
Addendum entered by Polly Monaco RN 01/06/24 15:54:
Auth #[id number].
Addendum entered by Polly Monaco RN 01/06/24 15:50:
Received auth for 01/05-01/17; NRD 01/18 with Naheed ([phone]); clinical updates fax to ([phone]). Per attending, not ready today, hopefully tomorrow.
Original Note:
Reviewed the chart notes. Auth started with [employer] Ref # [id number]. Clinicals faxed after multiple failed attempts (busy) to [phone]. Waiting for response from insurance company. CM continues to be available to patient/family and is
monitoring medical plan for needs at discharge.
Plan: Discharge to [facility] when medically stable.
[2024-01-06] MEDS: TOPROL XL PO (20:39)
[2024-01-07 02:46] VITALS: BP 153/67
[2024-01-07] MEDS: SYNTHROID 25 MCG PO (05:51)
[2024-01-07 07:35] VITALS: BP 168/84
[2024-01-07] MEDS: LOVENOX 40 MG SC (08:21)
[2024-01-07] MEDS: PROTONIX 40 MG PO (08:22)
[2024-01-07] MEDS: TOPROL XL 25 MG PO (08:22)
[2024-01-07] MEDS: NORVASC 5 MG PO (08:22)
[2024-01-07] MEDS: ZOLOFT 100 MG PO (08:23)
[2024-01-07] MEDS: PAXLOVID 2X150 MG-100 MG DOSE PACK 1 DOSE PO (08:23)
[2024-01-07] MEDS: TYLENOL 1000 MG PO (08:23)
[2024-01-07] MEDS: MIRALAX 17 GRAMS PO (08:24)
[2024-01-07 08:56] LABS: Hematocrit 35.2 % (37.0-47.0); Hemoglobin 11.8 g/dL (12.0-16.0); Mean Corp Hgb Conc. 33.5 g/dL (33.0-37.0); Mean Corpuscular Hgb 29.7 pg (27.0-31.0); Mean Corpuscular Volume 88.7 fL (81.0-99.0); Mean Platelet Volume 9.2 fL (7.4-10.4); Platelet Count 280 10^3/uL (130-400); Red Blood Cell Count 3.97 10^6/uL (4.20-5.40); Red Cell Dist. Width 14.2 % (11.5-14.5); White Blood Cell Count 4.4 10^3/uL (4.8-10.8)
[2024-01-07 10:18] LABS: Blood Urea Nitrogen 14 mg/dl (7-17); Calcium 9.9 mg/dl (8.4-10.2); Carbon Dioxide 27 mmol/L (22-30); Chloride 101 mmol/L (98-107); Estimated Creatinine Clearance 60 ml/min; Glucose 96 mg/dl (70-99); Potassium 3.9 mmol/L (3.5-5.1); Sodium 138 mmol/L (135-145); eGFR > 60.00
--- NOTE | 2024-01-07 11:22 | W.PN.HOSP.TC ---
Today's Communication/Plan
-
Monitor vital signs
see plan
Last day Paxlovid today
Discharge today
Time of discharge 38 minutes
Assessment / Plan
Assessment / Plan
Physical Exam
General: No acute distress
HEENT: Moist mucous membranes and PERRLA
Respiratory: Clear to auscultation, no wheezing
Cardiac: S1/S2, Regular Rhythm and Murmur (II/ CASSANDRA)
GI: Soft, Non Tender, Non Distended and Normal Bowel Sounds
Musculoskeletal: Other (R Hip incisions intact with kailyn in place. Some ecchymosis around site. No bleeding / discharge.)
Neuro: Awake; No Oriented
A/P: Patient is a 83y F with PMH significant for dementia, A-Fib and recent R hip ORIF who presents to ED from local [place] for evaluation of chills and change in mental status.
COVID-19 Infection
sepsis likely 2/2 covid
Acute TME secondary to the above
Acute hypoxic respiratory sufficiency likely secondary to above, Now improving. Weaned off oxygen, last day Paxlovid today
- Fever to 102.5, AMS, since improved, later fever spike to 100.8 /, since afebrile
- cont Paxlovid
- Follow proper precautions.
- Follow for clinical improvement.
Hypokalemia
replete
s/p ORIF R Hip
- Incisions are well-appearing at present.
- PT / OT evals appreciated
Paroxysmal Atrial Fibrillation
- Stable. Not on chronic OAC due to fall risk.
- Currently on prophylactic Lovenox s/p hip surgery as noted above.
- Continue metoprolol.
- Monitor on telemetry.
Benign Hypertension
Restart amlodipine
- Holding parameters for metoprolol.
Hydralazine as needed
Senile Dementia
- Patient pleasantly confused
- Mental status appears baseline at this time
- Monitor
DVT Prophylaxis: Continue Lovenox
Code Status: DNR
Anticipated Discharge: Today
Subjective/Interval History
-
Date of Service: January 07, 2024
Denies pain
Objective Data
-
Labs:
Laboratory Results
01/07/24
08:40
WBC 4.4 L
Hgb 11.8 L
Hct 35.2 L
Plt Count 280
Sodium 138
Potassium 3.9
Chloride 101
Carbon Dioxide 27
BUN 14
Creatinine 0.6
Glucose 96
Calcium 9.9
Vital Signs:
Vital Signs
Temp Pulse Resp BP Pulse Ox
97.8 F 75 18 168/84 94
01/07/24 07:35 01/07/24 08:22 01/07/24 07:35 01/07/24 08:22 01/07/24 07:35
I&O
01/06/24 01/07/24 01/08/24
06:59 06:59 06:59
Intake Total 570 / 570 1080 / 1080
Balance 570 / 570 1080 / 1080
--- NOTE | 2024-01-07 11:22 | CM ---
Reviewed the chart notes. Per attending ready for discharge today.
Plan: Discharge to [facility].
Call report to: [phone]
Fax report to: [phone]
Medical and transport forms on chart.
--- NOTE | 2024-01-07 11:23 | W.DCSUMMARY ---
Discharge Summary
Discharge Data
Date of Admission: 01/03/24
Date of Discharge: 01/07/24
-
Pending Results: No
Hospital Course
83-year-old female with past medical history of dementia, atrial fibrillation, recent right hip surgery, approximator fibrillation, hypertension came to the hospital with chills and change in mental status. Patient symptoms were likely thought was
secondary to sepsis secondary to COVID-19 infection. Over time her mental status continued to improve and she was back to her baseline mental status prior to discharge. She was started on Paxlovid and she was instructed to continue on discharge to
finish the course. Initially she required oxygen which was weaned off prior to discharge. Since her symptoms continue to improve, she was then discharged with instructions to follow-up with all her physicians outpatient.
Discharge Plan
-
Patient Disposition: Penitentiary/SNF
Discharge Diagnosis/Procedures: COVID-19 infection
Sepsis likely secondary to COVID
Acute toxic metabolic encephalopathy likely secondary to COVID
Acute hypoxic respiratory insufficiency
Diet: As tolerated
Activity: As tolerated
Driving Restrictions: Not until seen by your Dr
Bathing Restrictions: None
Activity Restrictions/Additional Instructions:
Last day of Paxlovid today 01/07/2024
Referrals:
Osei Timmons DO [Family Provider] - in less than 1 week
Prescriptions:
New
Paxlovid 300 mg (150 mg x 2)-100 mg Tablets,Dose Pack
1 ea PO BID Qty: 1 0RF
albuterol sulfate 90 mcg/actuation Hfa Aerosol Inhaler
2 puff inhalation R Q4HPRN PRN (Reason: SOB) Qty: 0 0RF
Continued
polyethylene glycol 3350 17 gram Powder In Packet
17 g PO MOWEFR
sertraline 100 mg Tablet
100 mg PO DAILY
amlodipine 5 mg Tablet
5 mg PO DAILY
levothyroxine 25 mcg Tablet
25 mcg PO DAILY@06
docusate sodium 100 mg Capsule
100 mg PO DAILY
metoprolol succinate 25 mg Tablet Extended Release 24 Hr
25 mg PO BID
metronidazole 1 % Gel
1 applic TOPICAL BID
Rx Instructions:
facial area
pantoprazole 40 mg Tablet,Delayed Release (Dr/Ec)
40 mg PO BID 30 Days Qty: 60 0RF
acetaminophen 500 mg Tablet
1,000 mg PO Q12H MDD 3000 mg
guaifenesin 100 mg/5 mL Liquid
200 mg PO Q4HPRN PRN (Reason: cough)
Slow Release Iron 140 mg (45 mg iron) Tablet Extended Release
140 mg PO DAILY
Hemorrhoidal Ointment
1 applic MI Q6HPRN PRN (Reason: constipation)
enoxaparin 40 mg/0.4 mL Syringe
40 mg SC DAILY Qty: 22 0RF
acetaminophen [Tylenol] 325 mg Tablet
650 mg PO DAILYPRN PRN (Reason: fever >100.4)
acetaminophen [Tylenol] 325 mg Tablet
650 mg PO DAILYPRN PRN (Reason: mild pain)
ondansetron HCl 4 mg Tablet
4 mg PO Q8HPRN PRN (Reason: nausea)
sennosides-docusate sodium [Senna-S] 8.6-50 mg Tablet
1 tab-cap PO QPM
acetaminophen [Tylenol Extra Strength] 500 mg Tablet
500 mg PO DAILYPRN PRN (Reason: mild pain)
magnesium hydroxide [Milk of Magnesia] 400 mg/5 mL Suspension
30 ml PO HSPRN PRN (Reason: constipation)
bisacodyl 10 mg Suppository
10 mg MI DAILYPRN PRN (Reason: day 3 no bm, mom ineffec)
cocoa butter-shark liver oil Suppository
1 supp MI BIDPRN PRN (Reason: constipation)
cholecalciferol (vitamin D3) 1,250 mcg (50,000 unit) Capsule
1,250 mcg PO QMONTH
tramadol 50 mg Tablet
50 mg PO DAILY Qty: 3 0RF
Rx Instructions:
1 hour prior to therapy
Held
albuterol sulfate 2.5 mg /3 mL (0.083 %) Solution For Nebulization
2.5 mg INHALATION R Q4HPRN PRN (Reason: wheezing)
Hold Instructions: Can restart once COVID resolved
Discharge Orders:
Discharge Patient (As Directed); Ordered 01/07/24
Ordered By: Ronaldo Sibley
Discharge Date and Time
Discharge Date/Time: 01/07/24 14:42
Print Language: TAJIK
[2024-01-07 14:36] VITALS: BP 157/71
== END 2024-01-07 14:42 | DRG 871 ==
LOC: 2 NORTH 15:07
PROVIDERS: Internal Medicine; Physician Assistant; ADMITTING PHYSICIAN Hospitalist; ATTENDING PHYSICIAN Internal Medicine; EMERGENCY PHYSICIAN Emergency Medicine; FAMILY PHYSICIAN Student in an Organized Health Care Education/Training Program
PROC: 5A09357 Assistance with Respiratory Ventilation, Less than 24 Consecutive Hours, Continuous Positive Airway Pressure (ICD-10-PCS; 2024-01-04)
DX: A41.89 Other specified sepsis (principal); G92.8 Other toxic encephalopathy; U07.1 COVID-19; F03.93 Unspecified dementia, unspecified severity, with mood disturbance; G91.9 Hydrocephalus, unspecified; E03.9 Hypothyroidism, unspecified; F32.A Depression, unspecified; I10 Essential (primary) hypertension; F42.9 Obsessive-compulsive disorder, unspecified; Z66 Do not resuscitate; I48.0 Paroxysmal atrial fibrillation; K21.00 Gastro-esophageal reflux disease with esophagitis, without bleeding; K44.9 Diaphragmatic hernia without obstruction or gangrene; K59.00 Constipation, unspecified; R09.02 Hypoxemia; R06.89 Other abnormalities of breathing; R13.10 Dysphagia, unspecified; S72.141D Displaced intertrochanteric fracture of right femur, subsequent encounter for closed fracture with routine healing; Z79.890 Hormone replacement therapy; Z79.899 Other long term (current) drug therapy; Z87.891 Personal history of nicotine dependence; Z88.1 Allergy status to other antibiotic agents; Z88.8 Allergy status to other drugs, medicaments and biological substances
CPT/HCPCS: 71046; 80048; 80053; 81003; 83605; 83735; 84100; 85014; 85018; 85025; 85027; 87040; 87070; 87811; 93005; 96360; 96372; 97163; 97167; 97530; 97535; 99285

== ENCOUNTER → 2024-01-12 10:27 | Outpatient (REF) | payer OTHER, SELFPAY ==
[2024-01-12 11:34] LABS: Hematocrit 35.8 % (37.0-47.0); Hemoglobin 11.8 g/dL (12.0-16.0); Mean Platelet Volume 10.1 fL (7.4-10.4); Platelet Count 303 10^3/uL (130-400); Red Blood Cell Count 4.07 10^6/uL (4.20-5.40); Red Cell Dist. Width 14.3 % (11.5-14.5); White Blood Cell Count 6.9 10^3/uL (4.8-10.8)
[2024-01-12 11:41] LABS: ALT (SGPT) 24 U/L (0-35); AST (SGOT) 31 U/L (14-36); Albumin 3.7 g/dl (3.5-5.0); Alkaline Phosphatase 134 U/L (38-126); Blood Urea Nitrogen 14 mg/dl (7-17); Calcium 10.1 mg/dl (8.4-10.2); Carbon Dioxide 26 mmol/L (22-30); Chloride 100 mmol/L (98-107); Glucose 124 mg/dl (70-99); Magnesium 1.8 mg/dl (1.6-2.3); Potassium 3.7 mmol/L (3.5-5.1); Sodium 137 mmol/L (135-145); Total Bilirubin 0.6 mg/dl (0.2-1.3); eGFR > 60.00
== END ==
LOC: OLABN 10:27
PROVIDERS: ATTENDING PHYSICIAN Student in an Organized Health Care Education/Training Program
DX: I10 Essential (primary) hypertension (principal); E11.65 Type 2 diabetes mellitus with hyperglycemia
CPT/HCPCS: 36415; 80053; 83735; 85027

== ENCOUNTER → 2024-01-28 22:30 | Outpatient (REF) | payer OTHER, SELFPAY ==
[2024-01-29 13:23] LABS: Urine Albumin Negative (Neg - Trace); Urine Bilirubin Negative (Negative); Urine Character Slightly Cloudy (Clear); Urine Color Yellow; Urine Glucose Negative (Negative); Urine Ketone Negative (Negative); Urine Leukocyte 1+ (Negative); Urine Nitrite Positive (Negative); Urine Occult Blood Negative (Negative); Urine Specific Gravity 1.015 (<1.030); Urine Urobilinogen Negative (Neg - 1+)
[2024-01-29 13:42] LABS: Urine Bacteria Moderate (Negative); Urine Red Blood Cell 0-2 /HPF (0-2); Urine White Cell 16-20 /HPF (0-5)
== END ==
LOC: OLABN 22:30
PROVIDERS: ATTENDING PHYSICIAN Student in an Organized Health Care Education/Training Program
DX: R30.0 Dysuria (principal)
CPT/HCPCS: 81003; 81015; 87077; 87086; 87186

== ENCOUNTER → 2024-05-13 02:15 | Outpatient (REF) | payer OTHER, SELFPAY ==
[2024-05-13 13:19] LABS: Urine Albumin Negative (Neg - Trace); Urine Bilirubin Negative (Negative); Urine Character Clear (Clear); Urine Color Yellow; Urine Glucose Negative (Negative); Urine Ketone Negative (Negative); Urine Leukocyte Negative (Negative); Urine Nitrite Negative (Negative); Urine Occult Blood Negative (Negative); Urine Urobilinogen Negative (Neg - 1+)
== END ==
LOC: OLABN 02:15
PROVIDERS: ATTENDING PHYSICIAN Student in an Organized Health Care Education/Training Program
DX: R40.1 Stupor (principal)
CPT/HCPCS: 81003; 87086

== ENCOUNTER 2024-12-03 22:46 | Observation (INO) | payer OTHER, SELFPAY ==
[2024-12-03] VITALS (8 sets, daily range): BP systolic 136–156; BP diastolic 59–94
[2024-12-03 16:23] LABS: Glucose - Point of Care 247 mg/dl (70-99)
--- NOTE | 2024-12-03 16:41 | ED.CVA ---
History of Present Illness
<Evans Morris PA-C - Last Filed: 12/03/24 22:54>
General
Chief Complaint: CVA/TIA Symptoms
Time Seen by Provider: 12/03/24 16:11
Onset of Stroke Symptoms
Onset of symptoms known: No
Time pt last seen normal is known: Yes
Date last time pt seen normal: 12/03/24
Time last time pt seen normal: 13:00
History of Present Illness
History of Present Illness:
84-year-old female arrives to the emergency department via EMS for evaluation of altered mental status and abnormal speech. According to family, she was last seen normal by her senior applications analyst at 1300 today, at approximately 1400 was noted by staff at
her facility to have slurred speech and seemed to be confused. She does have baseline dementia but is not typically oriented to place or time. Daughter is currently at bedside and states that her speech is very slurred and abnormal however her
mental status is baseline.
Past History
<Evans Morris PA-C - Last Filed: 12/03/24 22:54>
Past History
ED Past Medical History: GERD, Hypothyroidism and Other (Dementia)
ED Past Surgical History: None
Social History
Tobacco: Non-smoker
Alcohol: None
Review of Systems
<Evans Morris PA-C - Last Filed: 12/03/24 22:54>
Review of Systems
Allergies reviewed?: Yes
All Other Systems: ROS reviewed and negative except as documented in HPI and ROS
Phy Exam
<Evans Morris PA-C - Last Filed: 12/03/24 22:54>
Physical Exam
Physical Exam:
GEN: Well appearing, NAD, WDWN
HEENT: Oral mucosa moist, no scleral icterus, no nasal congestion
Cardiac: Regular rate
Lung: No respiratory distress, no tachypnea
MSK: No gross deformity or injuries
Skin: Good color, no pallor or jaundice, no rashes
Neuro: AO x3; CN II-XII grossly intact. Mild dysarthria, speech is intelligible with no aphasia noted. BUE strength 5/5 in all bloom, sensation intact and symmetric. Significant weakness to bilateral lower extremities left greater than right,
plantar and dorsiflexion strong and symmetric, patient is nonambulatory at baseline due to profound leg weakness
Psych: Calm, cooperative
Scores
<Evans Morris PA-C - Last Filed: 12/03/24 22:54>
NIH Stroke Score
Level of Consciousness: 0 - Alert
LOC Questions: 2-Neither correct
LOC Commands: 0-Performs both correctly
Best Horizontal Gaze: 0-Normal
Visual Bloom: 0=Normal, no visual loss
Facial Palsy: 0=Normal, symmetrical
Motor - Right Arm: 0=No drift 10 seconds
Motor - Left Arm: 0=No drift 10 seconds
Motor - Right Le-Partial vs. gravity
Motor - Left Le-Partial vs. gravity
Limb Ataxia: 0-Absent
Sensation: 0-Normal
Best Language: 0-No aphasia
Dysarthria: 1-Mild slurring
Extinction and Inattention: 0-No abnormality
NIH Total Score:: 7
<Rahul Jansen MD - Last Filed: 12/04/24 12:56>
NIH Stroke Score
NIH Total Score:: 7
Course
<Evans Morris PA-C - Last Filed: 12/03/24 22:54>
Orders/Labs/Results
Orders:
Orders
12/03/24 16:40
CT BRAIN PERF STROKE ALERT Urgent
Comment:
Reason For Exam: dysarthria
CT HEAD STROKE ALERT W/o Cont Urgent
Comment:
Reason For Exam: dysarthria
CT HEAD/NECK ANG STROKE ALERT Urgent
Comment:
Reason For Exam: dysarthria
12/03/24 16:41
Electrocardiogram (*1) Urgent
Reason for Study: TIA/Stroke
EKG- Treatment ONCE
12/03/24 16:42
Complete Blood Count/With Diff Urgent
Comprehensive Metabolic Panel Urgent
12/03/24 17:33
Aspirin 325 mg PO NOW STA
Clopidogrel Bisulfate [Plavix] 600 mg PO NOW STA
12/03/24 17:45
Urinalysis Reflex To Culture Urgent
Date Specimen was Collected: 12/03/24
Time Specimen was Collected: 17:44
Urine Microscopic Reflex Cult Urgent
Urine Culture Urgent
STIVEN Source: U
Specimen Description:
Date Specimen was Collected: 12/03/24
Time Specimen was Collected: 17:44
12/03/24 18:45
Clopidogrel Bisulfate [Plavix] 75 mg .ROUTE .STK-MED ONE
12/03/24 22:21
Admit/Transfer Patient As Directed
Co-Sign Provider:
Level of Care: Observation services
Assign to:: Telemetry
Physician / Group: Rohan
Diagnosis: Dysarthria
Reason for Telemetry: CVA/TIA
Date to Stop Telemetry: 12/06/24
Time to Stop Telemetry: 11:00
12/03/24 22:22
PRN Pain Medication Management As Directed
May give lesser potent ordered pain med per pt: Yes
preference::
Protocol:: Medication orders for pain may be administered in a
manner that supports deferring to patient preference
when the pt is:
- Requesting an ordered lesser potent pain medication.
Least to most potent pain medications are defined
as: acetaminophen < NSAID < tramadol < opioids
(morphine, oxycodone, hydromorphone).
- Requesting a lesser dose of the same medication IF
ORDERED.
- Requesting a less intrusive route of administration
if both routes are prescribed by the provider (PO <
IV).
12/03/24 22:25
Code Status As Directed
Resuscitation Status: Do not resuscitate
Reached after discussion with pt or family/Healthcare POA: Yes
DNR Bracelet Application ONCE
12/04/24 00:23
Acetaminophen [Tylenol/Feverall] 650 mg RECTAL Q4HPRN PRN
Acetaminophen [Tylenol] 650 mg PO Q4HPRN PRN
Albuterol Nebs [Ventolin Nebules] 2.5 mg INH R Q4HPRN PRN shortness of breath shortness of breath
Polyethylene Glycol Powder [Miralax] 17 grams PO MOWEFR
12/04/24 00:23
Case Management Consult ONCE
Case Management Consult: Discharge Planning
Comment: stroke/tia
Consult Notification Routine
Specialty to Notify: Neurology
Date consulting provider notified: 12/04/24
Time consulting provider notified: 07:31
Notified:: Provider
Comment: tt
DIETARY IP CONSULT Routine
Reason for Consult: stroke/TIA
NEUROLOGY CONSULT Routine
Consulting Provider: Ratna Mehta
Was physician already notified: No
Reason for consult: TIA
Cardiac Rn Routine
Activity As Directed
Activity Level: Out of Bed- Chair
NIH Stroke Scale As Directed
Directions: Per protocol
Comment: every shift and with any change in condition or mental status
Neurological Checks As Directed
Frequency: q4h
Additional Instructions:: q4h x 24h upon admission to the floor, then qshift & with any change in condition
and mental status
Patient Education As Directed
Type: Stroke education packet
Comment: provide to patient and family
Pneumatic Compression Sleeves As Directed
Type: Knee high
Swallow Screening CVA/TIA ONLY As Directed
Comment: NPO until swallowing screening completed
If patient FAILS swallow screening:: NPO, Speech Therapy consult, Aspiration Precautions
If patient PASSES swallow screening, diet:: Sodium, 2 Gram
Above diet order entered?: Yes- passed screening
Vital Signs As Directed
Frequency: Per unit guidelines
Ot Eval And Treat Routine
Pt Eval And Treat Routine
Activity Level: Out of Bed-Early Mobility
Speech Therapy Eval & Treat Routine
DX Deep Vein Thrombosis Video Routine
12/04/24 06:00
Levothyroxine [Synthroid] 25 mcg PO DAILY@0600
12/04/24 07:35
Basic Metabolic Panel IN AM
Cardiovascular Evaluation IN AM
Complete Blood Count/No Diff IN AM
Glycohemoglobin (HgbA1c) IN AM
Magnesium IN AM
12/04/24 08:00
Aspirin Chewable [Low Strength Aspirin] 81 mg PO DAILY
Clopidogrel Bisulfate [Plavix] 75 mg PO DAILY
Famotidine [Pepcid] 20 mg PO DAILY
Sertraline HCl [Zoloft] 75 mg PO DAILY
12/04/24 18:00
Atorvastatin [Lipitor] 20 mg PO QPM
Docusate W/Senna [Senokot-S] 2 tablet PO QPM
12/04/24 20:00
Metoprolol [Lopressor] 25 mg PO BID
12/05/24 08:00
Amlodipine [Norvasc] 10 mg PO DAILY
12/06/24 11:00
DC Protocol for Telemetry ONCE
Abnormal Lab Results
12/03/24 12/03/24 12/03/24
16:22 16:42 17:45
Abs Immat Gran (auto) 0.1 H 10^3/uL
(0-0.05)
Absolute Monos (auto) 0.7 H 10^3/uL
(0.1-0.6)
Immature Gran % 1.7 H %
(0-0.5)
Sodium 133 L mmol/L
(135-145)
Glucose 276 H mg/dl
(70-99)
Leukocyte Esterase Rfl 2+ A
(Negative)
Urine RBC 3-6 A /HPF
(0-2)
Urine WBC (Reflex) 16-20 A /HPF
(0-5)
Urine Bacteria (Reflex) Moderate A
(Negative)
Urine Albumin (Reflex) 1+ A
(Neg - Trace)
POC Glucose 247 H mg/dl
(70-99)
12/03/24 16:42
12/03/24 16:42
Vital Signs
Initial and Last Documented VS:
Initial Vital Signs
Pulse Ox
98
12/03/24 15:30
Last Documented Vital Signs
Temp Pulse Resp BP Pulse Ox
97.7 F 79 16 137/73 96
12/04/24 11:23 12/04/24 11:23 12/04/24 11:23 12/04/24 11:23 12/04/24 11:23
<Rahul Jansen MD - Last Filed: 12/04/24 12:56>
Orders/Labs/Results
Orders:
Orders
12/03/24 16:40
CT BRAIN PERF STROKE ALERT Urgent
Comment:
Reason For Exam: dysarthria
CT HEAD STROKE ALERT W/o Cont Urgent
Comment:
Reason For Exam: dysarthria
CT HEAD/NECK ANG STROKE ALERT Urgent
Comment:
Reason For Exam: dysarthria
12/03/24 16:41
Electrocardiogram (*1) Urgent
Reason for Study: TIA/Stroke
EKG- Treatment ONCE
12/03/24 16:42
Complete Blood Count/With Diff Urgent
Comprehensive Metabolic Panel Urgent
12/03/24 17:33
Aspirin 325 mg PO NOW STA
Clopidogrel Bisulfate [Plavix] 600 mg PO NOW STA
12/03/24 17:45
Urinalysis Reflex To Culture Urgent
Date Specimen was Collected: 12/03/24
Time Specimen was Collected: 17:44
Urine Microscopic Reflex Cult Urgent
Urine Culture Urgent
STIVEN Source: U
Specimen Description:
Date Specimen was Collected: 12/03/24
Time Specimen was Collected: 17:44
12/03/24 18:45
Clopidogrel Bisulfate [Plavix] 75 mg .ROUTE .STK-MED ONE
12/03/24 22:21
Admit/Transfer Patient As Directed
Co-Sign Provider:
Level of Care: Observation services
Assign to:: Telemetry
Physician / Group: Rohan
Diagnosis: Dysarthria
Reason for Telemetry: CVA/TIA
Date to Stop Telemetry: 12/06/24
Time to Stop Telemetry: 11:00
12/03/24 22:22
PRN Pain Medication Management As Directed
May give lesser potent ordered pain med per pt: Yes
preference::
Protocol:: Medication orders for pain may be administered in a
manner that supports deferring to patient preference
when the pt is:
- Requesting an ordered lesser potent pain medication.
Least to most potent pain medications are defined
as: acetaminophen < NSAID < tramadol < opioids
(morphine, oxycodone, hydromorphone).
- Requesting a lesser dose of the same medication IF
ORDERED.
- Requesting a less intrusive route of administration
if both routes are prescribed by the provider (PO <
IV).
12/03/24 22:25
Code Status As Directed
Resuscitation Status: Do not resuscitate
Reached after discussion with pt or family/Healthcare POA: Yes
DNR Bracelet Application ONCE
12/04/24 00:23
Acetaminophen [Tylenol/Feverall] 650 mg RECTAL Q4HPRN PRN
Acetaminophen [Tylenol] 650 mg PO Q4HPRN PRN
Albuterol Nebs [Ventolin Nebules] 2.5 mg INH R Q4HPRN PRN shortness of breath shortness of breath
Polyethylene Glycol Powder [Miralax] 17 grams PO MOWEFR
12/04/24 00:23
Case Management Consult ONCE
Case Management Consult: Discharge Planning
Comment: stroke/tia
Consult Notification Routine
Specialty to Notify: Neurology
Date consulting provider notified: 12/04/24
Time consulting provider notified: 07:31
Notified:: Provider
Comment: tt
DIETARY IP CONSULT Routine
Reason for Consult: stroke/TIA
NEUROLOGY CONSULT Routine
Consulting Provider: Ratna Mehta
Was physician already notified: No
Reason for consult: TIA
Cardiac Rn Routine
Activity As Directed
Activity Level: Out of Bed- Chair
NIH Stroke Scale As Directed
Directions: Per protocol
Comment: every shift and with any change in condition or mental status
Neurological Checks As Directed
Frequency: q4h
Additional Instructions:: q4h x 24h upon admission to the floor, then qshift & with any change in condition
and mental status
Patient Education As Directed
Type: Stroke education packet
Comment: provide to patient and family
Pneumatic Compression Sleeves As Directed
Type: Knee high
Swallow Screening CVA/TIA ONLY As Directed
Comment: NPO until swallowing screening completed
If patient FAILS swallow screening:: NPO, Speech Therapy consult, Aspiration Precautions
If patient PASSES swallow screening, diet:: Sodium, 2 Gram
Above diet order entered?: Yes- passed screening
Vital Signs As Directed
Frequency: Per unit guidelines
Ot Eval And Treat Routine
Pt Eval And Treat Routine
Activity Level: Out of Bed-Early Mobility
Speech Therapy Eval & Treat Routine
DX Deep Vein Thrombosis Video Routine
12/04/24 06:00
Levothyroxine [Synthroid] 25 mcg PO DAILY@0600
12/04/24 07:35
Basic Metabolic Panel IN AM
Cardiovascular Evaluation IN AM
Complete Blood Count/No Diff IN AM
Glycohemoglobin (HgbA1c) IN AM
Magnesium IN AM
12/04/24 08:00
Aspirin Chewable [Low Strength Aspirin] 81 mg PO DAILY
Clopidogrel Bisulfate [Plavix] 75 mg PO DAILY
Famotidine [Pepcid] 20 mg PO DAILY
Sertraline HCl [Zoloft] 75 mg PO DAILY
12/04/24 18:00
Atorvastatin [Lipitor] 20 mg PO QPM
Docusate W/Senna [Senokot-S] 2 tablet PO QPM
12/04/24 20:00
Metoprolol [Lopressor] 25 mg PO BID
12/05/24 08:00
Amlodipine [Norvasc] 10 mg PO DAILY
12/06/24 11:00
DC Protocol for Telemetry ONCE
Abnormal Lab Results
12/03/24 12/03/24 12/03/24
16:22 16:42 17:45
Abs Immat Gran (auto) 0.1 H 10^3/uL
(0-0.05)
Absolute Monos (auto) 0.7 H 10^3/uL
(0.1-0.6)
Immature Gran % 1.7 H %
(0-0.5)
Sodium 133 L mmol/L
(135-145)
Glucose 276 H mg/dl
(70-99)
Leukocyte Esterase Rfl 2+ A
(Negative)
Urine RBC 3-6 A /HPF
(0-2)
Urine WBC (Reflex) 16-20 A /HPF
(0-5)
Urine Bacteria (Reflex) Moderate A
(Negative)
Urine Albumin (Reflex) 1+ A
(Neg - Trace)
POC Glucose 247 H mg/dl
(70-99)
12/03/24 16:42
12/03/24 16:42
Vital Signs
Initial and Last Documented VS:
Initial Vital Signs
Pulse Ox
98
12/03/24 15:30
Last Documented Vital Signs
Temp Pulse Resp BP Pulse Ox
97.7 F 79 16 137/73 96
12/04/24 11:23 12/04/24 11:23 12/04/24 11:23 12/04/24 11:23 12/04/24 11:23
<Evans Morris PA-C - Last Filed: 12/03/24 22:54>
MDM/Problems Addressed
MDM/Problems Addressed:
Patient's initial NIH is 1 acutely, higher score noted in documentation due to significant chronic leg weakness and baseline confusion exam challenging. New deficit of dysarthria is quite mild. Patient was sent to imaging as a stroke alert and the
case was discussed with neurology/stroke team at [place]. 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
urgent MRI to determine if this could become an interventional lesion at some point although would not be a candidate at this moment given low NIH. Unfortunately as the patient has a DIGITAL [employer]GRAM MANAGER shunt and we are unable to verify exact product information,
we did not have the ability to obtain an urgent MRI for patient safety purposes. We did make multiple attempts to [facility] where the DIGITAL MARKETING PROGRAM MANAGER shunt was placed to gain operative note records or documentation of the device however [facility] [facility] was not
willing or not able to fax us information in a timely manner. I then we discussed the case with [place] neurology after discussion with family as the patient's functional status is not optimal and thus they would not advise any surgery, pending
neurology is amenable with the idea of holding off on urgent MRI and continuing with dual antiplatelet therapy. Will admit to the hospitalist service.
<Evans Morris PA-C - Last Filed: 12/03/24 22:54>
*Pulse Oximetry
SaO2: 98
Oxygen Mode of Delivery: Room air
Patient hypoxic: no
*Critical Care Note
Total Time (30-74mins, 75-104mins- exclusive of procedures): Not Applicable
ED Attending Note
<Evans Morris PA-C - Last Filed: 12/03/24 22:54>
-
Portions of this chart may have been created with voice recognition software.� Occasional wrong word or��sound alike� substitutions may have occurred due to the inherent limitations of voice recognition software.
Discharge Plan
Departure
Patient Disposition: Admit
Date of Disposition: 12/03/24
Time of Disposition: 21:46
Admit to: Telemetry
Presentation/result/management discussed w/ accepting MD/DO: Hospitalist
Discharge Problem:
Acute CVA (cerebrovascular accident)
Interventions
Interventions:
*Risk Screen - Suicide Last Done: 12/03/24 15:39
*General Assessment Last Done: 12/03/24 15:42
*Neglect/Abuse Screening Last Done: 12/03/24 15:39
*ED- Fall Risk Assessment Last Done: 12/03/24 17:58
*ED COVID-19 Vaccine History Last Done: 12/03/24 17:58
*Nursing Disposition Last Done: 12/03/24 23:52
ED- Cardiac Assessment Last Done: 12/03/24 15:30
ED- Neurological Assessment Last Done: 12/03/24 19:46
ED- Pulmonary Assessment Last Done: 12/03/24 15:30
ED Swallowing Screen Last Done: 12/03/24 17:58
Discharge Date and Time
Discharge Date/Time: 12/03/24 23:52
[2024-12-03 16:50] LABS: Hematocrit 39.6 % (37.0-47.0); Hemoglobin 13.2 g/dL (12.0-16.0); Mean Corp Hgb Conc. 33.3 g/dL (33.0-37.0); Mean Corpuscular Volume 87.2 fL (81.0-99.0); Nucleated Red Blood Cells % 0 %; Platelet Count 236 10^3/uL (130-400); Red Cell Dist. Width 12.7 % (11.5-14.5)
[2024-12-03 17:05] LABS: ALT (SGPT) 25 U/L (0-35); AST (SGOT) 25 U/L (14-36); Albumin 4.0 g/dl (3.5-5.0); Alkaline Phosphatase 72 U/L (38-126); Blood Urea Nitrogen 16 mg/dl (7-17); Calcium 10.1 mg/dl (8.4-10.2); Carbon Dioxide 27 mmol/L (22-30); Chloride 99 mmol/L (98-107); Glucose 276 mg/dl (70-99); Potassium 4.2 mmol/L (3.5-5.1); Sodium 133 mmol/L (135-145); Total Protein 6.6 g/dl (6.3-8.2); eGFR > 60.00
[2024-12-03] MEDS: PLAVIX PO (18:05)
[2024-12-03] MEDS: ASPIRIN 325 MG PO (18:05)
[2024-12-03 18:06] LABS: Urine Character Clear (Clear)
[2024-12-03 18:44] LABS: Urine Squamous Cell >30 /LPF (Few)
[2024-12-03 18:45] LABS: Urine White Cell 16-20 /HPF (0-5)
[2024-12-03] MEDS: PLAVIX 600 MG PO (19:11)
--- NOTE | 2024-12-03 21:55 | HPS.HSE ---
Family Physician
-
Family Physician: Osei Timmons DO
Chief Complaint
-
Abnormal Speech
History of Present Illness
Patient is an 84 y/o female past medical history of atrial fibrillation not on anticoagulation, NPH s/p CREATIVE ENGAGEMENT DIRECTOR shunt, ILD, hypothyroidism, dementia and anxiety who presents with abnormal speech. Patient is unable to provide history due to dementia.
Patient's son at bedside provides some additional history. Patient resides at [facility] and has a private caregiver. Caregiver noted around 2pm that patient slurred speech. Son described it as one side of her face was not moving right. Son
notes symptoms now seem to be improving.
Medical History
Past Medical History
Past Medical History: Reports Other
Additional Past Medical History:
Paroxysmal Atrial Fibrillation
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
Interstitial Lung Disease
Hypothyroidism
Dementia
Generalized Anxiety Disorder
GERD / Esophagitis
Past Surgical History: Reports Other
Additional Past Surgical History:
CREATIVE ENGAGEMENT DIRECTOR Shunt
Right Hip Surgery
Hysterectomy
Social History
Unable to obtain full social history at this time due to: Dementia
Living: [facility]
Family History
Family History: Not pertinent
Allergies / Home Medications
Allergies reflects when Allergies were last updated in [employer].
Home Medications with original date entered in [employer]
Allergy/Medication List:
Allergies
Allergy/AdvReac Type Severity Reaction Status Date / Time
bupropion Allergy Rash Verified 12/03/24 15:39
erythromycin base Allergy Rash Verified 12/03/24 15:39
Home Medications
levothyroxine 25 mcg tablet 25 mcg PO DAILY Thyroid 01/20/22
polyethylene glycol 3350 17 gram oral powder packet 17 g PO MOWEFR Constipation 01/20/22
acetaminophen 500 mg tablet 1,000 mg PO Q12H mild Pain 03/31/23
ferrous sulfate 140 mg (45 mg iron) tablet,extended release (Slow Release Iron) 140 mg PO DAILY Supplement 03/31/23
acetaminophen 325 mg tablet (Tylenol) 650 mg PO Q4HPRN PRN mild pain 01/02/24
bisacodyl 10 mg rectal suppository 10 mg MS DAILYPRN PRN day 3 no bm aftr mom 01/02/24
cholecalciferol (vitamin D3) 1,250 mcg (50,000 unit) capsule 1,250 mcg PO QMONTH Supplement 01/02/24
magnesium hydroxide 400 mg/5 mL oral suspension (Milk of Magnesia) 30 ml PO HSPRN PRN constipation 01/02/24
ondansetron HCl 4 mg tablet 4 mg PO Q8HPRN PRN nausea 01/02/24
sennosides 8.6 mg-docusate sodium 50 mg tablet (Senna-S) 2 tab-cap PO QPM Constipation 01/02/24
albuterol sulfate 2.5 mg/3 mL (0.083 %) solution for nebulization 2.5 mg inhalation R Q4HPRN PRN sob 12/03/24
amlodipine 10 mg tablet (Norvasc) 10 mg PO DAILY 12/03/24
famotidine 20 mg tablet (Pepcid) 20 mg PO DAILY 12/03/24
metoprolol tartrate 25 mg tablet 25 mg PO BID 12/03/24
phenylephrine-shark liver oil-mineral oil-petrolatum rectal ointment (Hemorrhoidal ointment) 1 applic MS Q6HPRN PRN hemmorriods 12/03/24
sertraline 25 mg tablet 75 mg PO DAILY 12/03/24
Review of Systems
-
Unable to obtain full review of systems at this time due to: Dementia
Physical Exam
Vital Signs
Vital Signs
Temp Pulse Resp BP Pulse Ox
97.8 F 85 20 144/93 96
12/03/24 15:39 12/03/24 21:00 12/03/24 21:00 12/03/24 21:00 12/03/24 17:45
Physical Exam
General: Comfortable and Conversant
HEENT: Anicteric and Moist mucous membranes
Respiratory: Clear and Non Labored Respirations
Cardiac: S1/S2 and Regular Rhythm
GI: Soft and Non Tender
Musculoskeletal: No Clubbing, No Cyanosis and No Edema
Skin: Warm and Dry
Neuro: Awake and Alert; No Slurred Speech or Facial Droop
Psych: Calm
Laboratory Results
-
12/03/24 16:42
12/03/24 16:42
Laboratory Results
Total Bilirubin 0.5 mg/dl (0.2-1.3) 12/03/24 16:42
AST 25 U/L (14-36) 12/03/24 16:42
ALT 25 U/L (0-35) 12/03/24 16:42
Alkaline Phosphatase 72 U/L (38-126) 12/03/24 16:42
Data Reviewed
-
CT Scan: Report Reviewed by me
Lab Data: Labs Reviewed by me
Impression/Plan
-
Dysarthria, symptoms seem improved at this point in time
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
-Consult Neurology
-Check Brain MRI
-Continue Aspirin and Plavix
-Start Lipitor
-Check HgbA1c and Lipid Panel
-Consult PT/OT and Speech - Per family patient is non-ambulatory at baseline
Paroxysmal Atrial Fibrillation
-Patient is not on anticoagulation due to fall risk and prior GI Bleed
Essential Hypertension
-Allow for permissive hypertension for 24 hours following onset of symptoms
-Resume amlodipine and metoprolol tomorrow afternoon
Interstitial Lung Disease
-Continue albuterol PRN
Hypothyroidism
-Continue levothyroxine
Dementia
-Monitor for mood/behavior changes during hospitalization
Generalized Anxiety Disorder
-Continue sertraline
GERD / Esophagitis
-Continue Pepcid
Chronic Constipation
-Continue MiraLAX and Senna-S
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
DVT proph: SCDs
Code Status:DNR
--- NOTE | 2024-12-03 22:50 | W.PN.UPDATE ---
Update Note
Progress Note Update
This is an addendum to H&P written by Krupa Miller on 12/03/2024. �Patient seen and examined independently with PA.
84-year-old female past medical history of dementia, paroxysmal atrial fibrillation not on anticoagulation, hypertension, dementia, hypothyroidism, GERD, hiatal hernia, normal pressure hydrocephalus status post SONOGRAPHY TECHNICIAN shunt, presenting for altered
mental status and abnormal speech. Last seen normal 1300.
Vital signs normal. �NIH score initially 7 due to slurred speech, inability to answer conscious questions, bilateral lower extremity weakness.
Blood sugar 276. �Urinalysis shows 16-20 WBC, plus leukocyte esterase.
CT head shows no acute intracranial abnormality. �SONOGRAPHY TECHNICIAN shunt appears unchanged.
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
Concern for acute CVA. �ER spoke with neurology who deemed she is not a thrombolytic candidate due to nondisabling symptoms. �Urgent MRI was recommended by neurology to see if this could be interventional candidate. However family not interested in
any intervention. �Also given that patient has SONOGRAPHY TECHNICIAN shunt and product information could not be obtained and could not be obtained from [facility] where was placed, decision was made to defer urgent MRI and MRA, which would not change
management. Order routine MRI brain for tomorrow if records can be obtained.
Blood sugar of 276 but patient not diabetic. �Check hemoglobin A1c.
[2024-12-04] VITALS (9 sets, daily range): BP systolic 137–170; BP diastolic 72–89; PULSE 84–87; BMI 27.4
--- NOTE | 2024-12-04 01:29 | PTCARENOTE ---
Received patient from ED via stretcher w/ belongings; telemetry order> NSR on the monitor, VSS, no c/o pain. AAOx1, COQUILLE. NIH 6- refer to worklist. Bed alarm in place. According to [place] records, patient nonambulatory. PMH and medications obtained from
[place] records. Patient oriented to room, call bruce within reach.
[2024-12-04] MEDS: MIRALAX 17 GRAMS PO (01:46)
[2024-12-04 03:10] LABS: Glucose - Point of Care 168 mg/dl (70-99)
[2024-12-04] MEDS: SYNTHROID 25 MCG PO (05:54)
--- NOTE | 2024-12-04 07:31 | CON.NEURO ---
Consultation
Order
Date of Consultation: 12/04/24
Requesting Provider: Krupa Way PA-C
Reason for Consult: TIA
Neurology Consultation Note.
HPI: This is an 84-year-old woman who presented to the [facility] on 12/03/2024 with transient dysarthria.
The patient does not recall the episode of slurred speech and denies any current symptoms or complaints.
Yue states that lives with her and reports being able to get around independently without the use of assistive devices. She denies any history of strokes or surgeries.
ER VS: 154/59-170/89, 73, afebrile
EKG: Normal sinus rhythm, QTcB Int : 479 ms
PDMP: No recently prescribed medication
Labs: Glucose�276, sodium�133, normal creatinine,
CT head wo contrast�diffuse atrophy, subcortical white matter disease.
PMH: PA AFib on ASA, NPH, history of GIB, HTN, ILD, hypothyroidism, dementia, GERD, hiatal hernia, vitamin D deficiency
PSH: Right parietal ventriculostomy, left foot surgery, bladder lift
SH: resident at [facility], former smoker, ambulates with wheelchair
FH: Unknown.
All: Bupropion, erythromycin, melatonin
ROS: Negative for headache, change in vision. Positive for encephalopathy.
General: Well developed. In no acute distress.
Cardio: Regular rate and rhythm without murmur. Extremities are without cyanosis or edema.
Neuro:
Mental Status: Alert, oriented to name, not to age ('58'), location, month, season ('winter '), president. Impaired comprehension. Follows simple requests. Nonfluent.
Cranial Nerves: Pupils are equally round and reactive to light. EOMs full. Points to threat bilaterally. No ptosis. No nystagmus. Face symmetric. Mildly impaired hearing AU. The palate elevated well. SCMs and traps 5/5. Tongue midline.
No dysarthria. Mild dysphonia.
Motor: Increased motor tone in lower extremities. No pronator drift. Moves lower extremities within [place]
Reflexes: Positive for bilateral crest
Sensory: Limited due to poor attention
Coordination: No dysmetria or tremor
Gait: deferred
Assessment and Plan:
I. Transiently dysarthria.
II. History of NPH status post VPS
III. Chronic encephalopathy
IV. PA A-Fib
- Continue Telemetry monitoring
- Fall precautions.
- Continue aspirin 81 mg once a day
- Brain MRI without gadolinium if feasible
- I left a message for patient's daughter with request to return my call to obtain collateral history guarding cognitive and functional baseline
- DVT prophylaxis.
I personally reviewed all radiology and labs along with past medical records pertinent to current medical problems. Total time spent in patient care is 60 minutes.
Thank you for allowing us to participate in the care of this patient. We will continue to follow. Please do not hesitate to contact us with any questions or concerns.
Subjective/Objective
Subjective Data
Date of Service: December 04, 2024
Objective Data
Vital Signs
Temp Pulse Resp BP Pulse Ox
36.3 C 96 18 170/89 91
12/04/24 03:42 12/04/24 03:42 12/04/24 03:42 12/04/24 03:42 12/04/24 03:42
Sodium 133 mmol/L (135-145) L 12/03/24 16:42
Potassium 4.2 mmol/L (3.5-5.1) 12/03/24 16:42
BUN 16 mg/dl (7-17) 12/03/24 16:42
Glucose 276 mg/dl (70-99) H 12/03/24 16:42
Calcium 10.1 mg/dl (8.4-10.2) 12/03/24 16:42
Patient Allergies
bupropion Allergy (Verified 12/03/24 15:39)
Rash
erythromycin base Allergy (Verified 12/03/24 15:39)
Rash
Medications
-
Active Medications
Generic Name Dose Route Start Last Admin
Trade Name Freq PRN Reason Stop Dose Admin
Acetaminophen 650 mg 12/04/24 00:23
Acetaminophen 650 Mg Rectal Suppository RECTAL 01/01/25 00:22
Q4HPRN PRN
BRIZUELA, mild pain, or temp >100.4F
Acetaminophen 650 mg 12/04/24 00:23
Acetaminophen 325 Mg Tablet PO 01/01/25 00:22
Q4HPRN PRN
BRIZUELA, mild pain, or temp >100.4F
Albuterol Sulfate 2.5 mg 12/04/24 00:23
Albuterol Nebs 2.5 Mg/3 Ml Ampul INH
R Q4HPRN PRN
shortness of breath
Protocol
Amlodipine Besylate 10 mg 12/05/24 08:00
Amlodipine 10 Mg Tablet PO 01/02/25 07:59
DAILY ROSE
Aspirin 81 mg 12/04/24 08:00
Aspirin 81 Mg Chewable Tablet PO 01/01/25 07:59
DAILY ROSE
Atorvastatin Calcium 20 mg 12/04/24 18:00
Atorvastatin (Lipitor) 20 Mg Tablet PO 01/01/25 17:59
QPM ROSE
Ceftriaxone Sodium 1,000 mg 12/04/24 08:00
Ceftriaxone 1000 Mg / 10 Ml Vial IV
Q24H ROSE
Clopidogrel Bisulfate 75 mg 12/04/24 08:00
Clopidogrel 75 Mg Tablet PO 01/01/25 07:59
DAILY ROSE
Dextrose 12.5 grams 12/04/24 00:23
Dextrose 50% (0.5 Grams/Ml) 50 Ml Syringe IV 01/01/25 00:22
[id number] PRN
hypoglycemia
Protocol
Famotidine 20 mg 12/04/24 08:00
Famotidine 20 Mg Tablet PO 01/01/25 07:59
DAILY ROSE
Glucagon 1 mg 12/04/24 00:23
Glucagon 1 Mg Vial IM 01/01/25 00:22
PRN PRN
hypoglycemia
Protocol
Insulin Aspart 0 units 12/04/24 07:30
Insulin Aspart Low Resistance 300 Units/3 Ml Pen.Injctr SC 01/01/25 07:29
AC ROSE
Protocol
Levothyroxine Sodium 25 mcg 12/04/24 06:00 12/04/24 05:54
Levothyroxine 25 Mcg Tablet PO 01/01/25 05:59 25 mcg
DAILY@0600 ROSE Administration
Metoprolol Tartrate 25 mg 12/04/24 20:00
Metoprolol 25 Mg Regular Release Tablet PO 01/01/25 19:59
BID ROSE
Polyethylene Glycol 17 grams 12/04/24 00:23 12/04/24 01:46
Polyethylene Glycol Powder 17 Grams Packet PO 01/01/25 00:22 17 grams
MOWEFR ROSE Administration
Senna/Docusate Sodium 2 tablet 12/04/24 18:00
Docusate W/Senna (Jeanne-Colace) Tablet PO 01/01/25 17:59
QPM ROSE
Sertraline HCl 75 mg 12/04/24 08:00
Sertraline 25 Mg Tablet PO 01/01/25 07:59
DAILY ROSE
Sterile Water 10 ml 12/04/24 08:00
Sterile Water For Injection 10 Ml Vial IV 01/01/25 07:59
Q24H ROSE
Home Medications
�Medication �Instructions �Recorded
levothyroxine 25 mcg tablet 25 mcg PO DAILY Thyroid 01/20/22
polyethylene glycol 3350 17 gram 17 g PO MOWEFR Constipation 01/20/22
oral powder packet
acetaminophen 500 mg tablet 1,000 mg PO Q12H mild Pain 03/31/23
ferrous sulfate 140 mg (45 mg 140 mg PO DAILY Supplement 03/31/23
iron) tablet,extended release
(Slow Release Iron)
acetaminophen 325 mg tablet 650 mg PO Q4HPRN PRN mild pain 01/02/24
(Tylenol)
bisacodyl 10 mg rectal suppository 10 mg MA DAILYPRN PRN day 3 no bm 01/02/24
aftr mom
cholecalciferol (vitamin D3) 1,250 1,250 mcg PO QMONTH Supplement 01/02/24
mcg (50,000 unit) capsule
magnesium hydroxide 400 mg/5 mL 30 ml PO HSPRN PRN constipation 01/02/24
oral suspension (Milk of Magnesia)
ondansetron HCl 4 mg tablet 4 mg PO Q8HPRN PRN nausea 01/02/24
sennosides 8.6 mg-docusate sodium 2 tab-cap PO QPM Constipation 01/02/24
50 mg tablet (Senna-S)
albuterol sulfate 2.5 mg/3 mL 2.5 mg inhalation R Q4HPRN PRN sob 12/03/24
(0.083 %) solution for nebulization
amlodipine 10 mg tablet (Norvasc) 10 mg PO DAILY 12/03/24
famotidine 20 mg tablet (Pepcid) 20 mg PO DAILY 12/03/24
metoprolol tartrate 25 mg tablet 25 mg PO BID 12/03/24
phenylephrine-shark liver 1 applic MA Q6HPRN PRN hemmorriods 12/03/24
oil-mineral oil-petrolatum rectal
ointment (Hemorrhoidal ointment)
sertraline 25 mg tablet 75 mg PO DAILY 12/03/24
Vital Signs and Labs
-
Vital Signs and Labs:
Vital Signs
Temp Pulse Resp BP Pulse Ox
36.3 C 96 18 170/89 91
12/04/24 03:42 12/04/24 03:42 12/04/24 03:42 12/04/24 03:42 12/04/24 03:42
Sodium 133 mmol/L (135-145) L 12/03/24 16:42
Potassium 4.2 mmol/L (3.5-5.1) 12/03/24 16:42
BUN 16 mg/dl (7-17) 12/03/24 16:42
Glucose 276 mg/dl (70-99) H 12/03/24 16:42
Calcium 10.1 mg/dl (8.4-10.2) 12/03/24 16:42
Medications
-
Medications:
Generic Name Dose Route Start Last Admin
Trade Name Freq PRN Reason Stop Dose Admin
Acetaminophen 650 mg 12/04/24 00:23
Acetaminophen 650 Mg Rectal Suppository RECTAL 01/01/25 00:22
Q4HPRN PRN
BRIZUELA, mild pain, or temp >100.4F
Acetaminophen 650 mg 12/04/24 00:23
Acetaminophen 325 Mg Tablet PO 01/01/25 00:22
Q4HPRN PRN
BRIZUELA, mild pain, or temp >100.4F
Albuterol Sulfate 2.5 mg 12/04/24 00:23
Albuterol Nebs 2.5 Mg/3 Ml Ampul INH
R Q4HPRN PRN
shortness of breath
Protocol
Amlodipine Besylate 10 mg 12/05/24 08:00
Amlodipine 10 Mg Tablet PO 01/02/25 07:59
DAILY ROSE
Aspirin 81 mg 12/04/24 08:00
Aspirin 81 Mg Chewable Tablet PO 01/01/25 07:59
DAILY ROSE
Atorvastatin Calcium 20 mg 12/04/24 18:00
Atorvastatin (Lipitor) 20 Mg Tablet PO 01/01/25 17:59
QPM ROSE
Ceftriaxone Sodium 1,000 mg 12/04/24 08:00
Ceftriaxone 1000 Mg / 10 Ml Vial IV
Q24H ROSE
Clopidogrel Bisulfate 75 mg 12/04/24 08:00
Clopidogrel 75 Mg Tablet PO 01/01/25 07:59
DAILY ROSE
Dextrose 12.5 grams 12/04/24 00:23
Dextrose 50% (0.5 Grams/Ml) 50 Ml Syringe IV 01/01/25 00:22
[id number] PRN
hypoglycemia
Protocol
Famotidine 20 mg 12/04/24 08:00
Famotidine 20 Mg Tablet PO 01/01/25 07:59
DAILY ROSE
Glucagon 1 mg 12/04/24 00:23
Glucagon 1 Mg Vial IM 01/01/25 00:22
PRN PRN
hypoglycemia
Protocol
Insulin Aspart 0 units 12/04/24 07:30
Insulin Aspart Low Resistance 300 Units/3 Ml Pen.Injctr SC 01/01/25 07:29
AC ROSE
Protocol
Levothyroxine Sodium 25 mcg 12/04/24 06:00 12/04/24 05:54
Levothyroxine 25 Mcg Tablet PO 01/01/25 05:59 25 mcg
DAILY@0600 ROSE Administration
Metoprolol Tartrate 25 mg 12/04/24 20:00
Metoprolol 25 Mg Regular Release Tablet PO 01/01/25 19:59
BID ROSE
Polyethylene Glycol 17 grams 12/04/24 00:23 12/04/24 01:46
Polyethylene Glycol Powder 17 Grams Packet PO 01/01/25 00:22 17 grams
MOWEFR ROSE Administration
Senna/Docusate Sodium 2 tablet 12/04/24 18:00
Docusate W/Senna (Jeanne-Colace) Tablet PO 01/01/25 17:59
QPM ROSE
Sertraline HCl 75 mg 12/04/24 08:00
Sertraline 25 Mg Tablet PO 01/01/25 07:59
DAILY ROSE
Sterile Water 10 ml 12/04/24 08:00
Sterile Water For Injection 10 Ml Vial IV 01/01/25 07:59
Q24H ROSE
Home Medications
-
Home Medications
levothyroxine 25 mcg tablet 25 mcg PO DAILY Thyroid 01/20/22
polyethylene glycol 3350 17 gram oral powder packet 17 g PO MOWEFR Constipation 01/20/22
acetaminophen 500 mg tablet 1,000 mg PO Q12H mild Pain 03/31/23
ferrous sulfate 140 mg (45 mg iron) tablet,extended release (Slow Release Iron) 140 mg PO DAILY Supplement 03/31/23
acetaminophen 325 mg tablet (Tylenol) 650 mg PO Q4HPRN PRN mild pain 01/02/24
bisacodyl 10 mg rectal suppository 10 mg MA DAILYPRN PRN day 3 no bm aftr mom 01/02/24
cholecalciferol (vitamin D3) 1,250 mcg (50,000 unit) capsule 1,250 mcg PO QMONTH Supplement 01/02/24
magnesium hydroxide 400 mg/5 mL oral suspension (Milk of Magnesia) 30 ml PO HSPRN PRN constipation 01/02/24
ondansetron HCl 4 mg tablet 4 mg PO Q8HPRN PRN nausea 01/02/24
sennosides 8.6 mg-docusate sodium 50 mg tablet (Senna-S) 2 tab-cap PO QPM Constipation 01/02/24
albuterol sulfate 2.5 mg/3 mL (0.083 %) solution for nebulization 2.5 mg inhalation R Q4HPRN PRN sob 12/03/24
amlodipine 10 mg tablet (Norvasc) 10 mg PO DAILY 12/03/24
famotidine 20 mg tablet (Pepcid) 20 mg PO DAILY 12/03/24
metoprolol tartrate 25 mg tablet 25 mg PO BID 12/03/24
phenylephrine-shark liver oil-mineral oil-petrolatum rectal ointment (Hemorrhoidal ointment) 1 applic MA Q6HPRN PRN hemmorriods 12/03/24
sertraline 25 mg tablet 75 mg PO DAILY 12/03/24
[2024-12-04] MEDS: PEPCID 20 MG PO (07:47)
[2024-12-04] MEDS: PLAVIX 75 MG PO (07:47)
[2024-12-04] MEDS: LOW STRENGTH ASPIRIN 81 MG PO (07:48)
[2024-12-04] MEDS: NOVOLOG FLEXPEN-LOW RESISTANCE SC (07:48)
[2024-12-04] MEDS: ZOLOFT 75 MG PO (07:48)
[2024-12-04 07:49] LABS: Glucose - Point of Care 148 mg/dl (70-99)
[2024-12-04] MEDS: ROCEPHIN 1000 MG IV (07:55)
[2024-12-04] MEDS: STERILE WATER FOR INJECTION 10 ML IV (07:55)
[2024-12-04 08:10] LABS: Hematocrit 39.8 % (37.0-47.0); Hemoglobin 13.5 g/dL (12.0-16.0); Mean Corp Hgb Conc. 33.9 g/dL (33.0-37.0); Mean Corpuscular Volume 85.8 fL (81.0-99.0); Platelet Count 206 10^3/uL (130-400); Red Cell Dist. Width 12.6 % (11.5-14.5)
[2024-12-04 08:31] LABS: Blood Urea Nitrogen 8 mg/dl (7-17); Calcium 9.8 mg/dl (8.4-10.2); Carbon Dioxide 27 mmol/L (22-30); Chloride 101 mmol/L (98-107); Estimated Creatinine Clearance 56 ml/min; Glucose 170 mg/dl (70-99); HDL Cholesterol 34 mg/dl; LDL Cholesterol, Calculated 197 mg/dl; Magnesium 1.9 mg/dl (1.6-2.3); Potassium 4.1 mmol/L (3.5-5.1); Sodium 136 mmol/L (135-145); Very Low Density Lipoprotein 57 mg/dl (0-30); eGFR > 60.00
[2024-12-04 09:10] LABS: Glycohemoglobin (HgbA1c) 7.6 % (4.0-5.6)
--- NOTE | 2024-12-04 09:10 | PTOTSP ---
Speech Pathology
Clinical Swallow Evaluation
84F with admission for dysarthria and CVA/TIA workup presents with a functional oropharyngeal swallow. S/s of reflux observed this date re: known history of esophageal dysphagia/retention per VSE from 06/2022. Scant dysarthria observed that appears
to be resolving per patient/RN report, will continue to monitor. Speech was 95-100% intelligible.
Recommend:
1. Regular textures (IDDSI 7), thin liquids (IDDSI 0)
2. Meds as best tolerated
3. Safe swallowing strategies: small bites, single sips, slow rate, chew well, check for pocketing
4. Reflux precautions � upright with meals; upright 30 minutes post meals
5. [employer] service to follow up re: to provide speech tx at the acute care level and check diet tolerance
--- NOTE | 2024-12-04 10:24 | CM ---
Patient seen at bedside with patient son. Patient son states that patient is LTC at [facility] and plan is for her to return possibly today. CM sent referral via [employer] and spoke with Liaison Sofiya, when discharge is confirmed with call to retail department supervisor
at [phone]/fax [phone]. CM reviewed OBS form with patient son and signed form placed on chart. CM will continue to follow for discharge planning needs.
Plan; return to SNF/via ambulance.
--- NOTE | 2024-12-04 10:34 | W.PN.UPDATE ---
Update Note
Progress Note Update
Spoke to patient's son who confirmed that his mother has returned to her baseline cognitive and functional status, describing her as '100% back to normal.'
Regarding the patient's baseline function, she has been wheelchair-bound over the last 2 years and has 'dementia '.
Following the discussion the decision was made to repeat CT head in 24 hours from the initial 2 limited risk of sedation in this elderly patient with advanced underlying cognitive impairment.
Would defer the decision regarding systemic anticoagulation to cardiology team.
Ratna Mehta M.D.
Neurology
[2024-12-04 11:39] LABS: Glucose - Point of Care 274 mg/dl (70-99)
--- NOTE | 2024-12-04 12:07 | W.PN.HOSP.TC ---
Today's Communication/Plan
-
see PN
Assessment / Plan
Assessment / Plan
84yo F with PMHx of ambulatory deficiency (wheelchair-bound for at least 2 years) HTN, GERD, anxiety, NPH with CERTIFICATION ENGINEER shunt, ILD, hypothyroidism, dementia apparently remote Hx of A.fib with PMHx of hematemesis with camerons erosions and esophagitis in
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
posterior cerebral artery and possibly left posterior cerebral artery, initiallyteleneuro advised urgent MRI brain but since [facility] was not able to provide info about shunt to ED- that was deferred to routine. Eventually, after
conversation with neurologist family declined MRI as it will not change mgmt. Admitted for CVA/TIA and accidental possible UTI
As per most recent note from [facility] written in 2022 - patient was on ASA with Hx of PAF, but actually also noted frequent PVSc, so unclear if that was a reason to not to be on anticoagulation - patient to follow with established AMS
cardiology
A/P:
#CVA/TIA
#Hypothyroidism
#HLD
telemetry - SR
With Hx of paroxysmal Afib but not on Ac - cardio consult to weight in on the need to restart it.
ASA/Plavix (for 21 days) statin (increased to 40mg nightly)
TSH mildly elevated - can be normal for 84yo F - with Hx of afib - not planning to increase Synthroid at this time - recheck TFT in 203 weeks with PCP
#Possible UTI
patient cannot reliably describe [id number] F with PMHx of ambulatory deficiency (wheelchair-bound for at least 2 years) HTN, GERD, anxiety, NPH with CERTIFICATION ENGINEER shunt, ILD, hypothyroidism, dementia apparently remote Hx of A.fib with PMHx of hematemesis
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
proximally, reconstituted via collaterals from right posterior cerebral artery and possibly left posterior cerebral artery, initiallytedagobertoeuro advised urgent MRI brain but since [facility] was not able to provide info about shunt to ED- that
was deferred to routine. Eventiually, after conversation with neurologist family declined MRI as it will not change mgmt. Admitted for CVA/TIA and accidental possible UTI
A/P:
#CVA/TIA
#Hypothyroidism
#HLD
telemetry - SR
With Hx of paroxysmal Afib but not on Ac - cardio consult to weight in on the need to restart it.
ASA/Plavix (for 21 days) statin (increased to 40mg nightly)
TSH mildly elevated - can be normal for 84yo F - with Hx of afib - not planning to increase Synthroid at this time - recheck TFT in 203 weeks with PCP
#Possible UTI
patient cannot reliably describe symprtoms
Ceftriaxone pending Ucx
#Essential HTN
#Anxiety
#COPD, stable
#unspecified dementia
#Chronic ambulatory deficiency
cont home meds
DVT ppx SCDs
DNR/DNI
I have spent at least 59min reviewing chart, test results, communication with consultants, family and providing direct patient care
Ceftriaxone pending Ucx
#Essential HTN
#Anxiety
#COPD, stable
#unspecified dementia
#Chronic ambulatory deficiency
cont home meds
DVT ppx SCDs
DNR/DNI
I have spent at least 59min reviewing chart, test results, communication with consultants, family and providing direct patient care
Anticipated Discharge: 24 - 48 hours
Subjective/Interval History
-
Date of Service: December 04, 2024
Objective Data
-
Labs:
Laboratory Results
12/04/24
07:35
WBC 6.6
Hgb 13.5
Hct 39.8
Plt Count 206
Sodium 136
Potassium 4.1
Chloride 101
Carbon Dioxide 27
BUN 8
Creatinine 0.5 L
Glucose 170 H
Calcium 9.8
Vital Signs:
Vital Signs
Temp Pulse Resp BP Pulse Ox
97.7 F 79 16 137/73 96
12/04/24 11:23 12/04/24 11:23 12/04/24 11:23 12/04/24 11:23 12/04/24 11:23
Review of Systems
-
History Source: Patient
All other systems: Reviewed and negative
Physical Exam
-
General: No Apparent Distress
HEENT: Normocephalic
Cardiac: Regular Rhythm
GI: Soft, Nontender and Nondistended
Neuro: Awake, Alert, Oriented, AO x 3, No Motor Deficits and Nonfocal/Grossly Intact
Psych: Calm and Apparent Dementia
[2024-12-04] MEDS: NOVOLOG FLEXPEN-LOW RESISTANCE 2 UNITS SC (12:33)
[2024-12-04 16:43] LABS: Glucose - Point of Care 173 mg/dl (70-99)
[2024-12-04] MEDS: LIPITOR 40 MG PO (17:34)
[2024-12-04] MEDS: NOVOLOG FLEXPEN-LOW RESISTANCE 1 UNITS SC (17:34)
[2024-12-04] MEDS: SENOKOT-S 2 TABLET PO (17:34)
[2024-12-04] MEDS: LOPRESSOR 25 MG PO (20:38)
[2024-12-04 21:03] LABS: Glucose - Point of Care 157 mg/dl (70-99)
[2024-12-05 03:32] VITALS: BP 153/68
[2024-12-05] MEDS: SYNTHROID 25 MCG PO (06:01)
[2024-12-05 07:26] VITALS: BP 158/71
[2024-12-05 08:07] LABS: Glucose - Point of Care 180 mg/dl (70-99)
[2024-12-05 08:29] LABS: Hematocrit 36.4 % (37.0-47.0); Hemoglobin 12.5 g/dL (12.0-16.0); Mean Corp Hgb Conc. 34.3 g/dL (33.0-37.0); Mean Corpuscular Volume 84.8 fL (81.0-99.0); Nucleated Red Blood Cells % 0 %; Platelet Count 196 10^3/uL (130-400); Red Cell Dist. Width 12.7 % (11.5-14.5)
[2024-12-05] MEDS: LOW STRENGTH ASPIRIN 81 MG PO (09:34)
[2024-12-05] MEDS: LOPRESSOR 25 MG PO ×2 (09:34→19:53)
[2024-12-05] MEDS: PEPCID 20 MG PO (09:34)
[2024-12-05] MEDS: NOVOLOG FLEXPEN-LOW RESISTANCE 1 UNITS SC ×2 (09:34→16:53)
[2024-12-05] MEDS: PLAVIX 75 MG PO (09:34)
[2024-12-05] MEDS: ROCEPHIN 1000 MG IV (09:35)
[2024-12-05] MEDS: STERILE WATER FOR INJECTION 10 ML IV (09:35)
[2024-12-05] MEDS: NORVASC 10 MG PO (09:35)
--- NOTE | 2024-12-05 10:57 | W.PN.HOSP.TC ---
Today's Communication/Plan
-
pendign Ucx before d/c
Assessment / Plan
Assessment / Plan
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
posterior cerebral artery and possibly left posterior cerebral artery, initiallyteleneuro advised urgent MRI brain but since [facility] was not able to provide info about shunt to ED- that was deferred to routine. Eventually, after
conversation with neurologist family declined MRI as it will not change mgmt. Admitted for CVA/TIA and accidental possible UTI
As per most recent note from [facility] written in 2022 - patient was on ASA with Hx of PAF, but actually also noted frequent PVSc, so unclear if that was a reason to not to be on anticoagulation - patient to follow with established AMS
cardiology
A/P:
#CVA/TIA
#Hypothyroidism
#HLD
telemetry - SR
With Hx of paroxysmal Afib but not on Ac - cardio consult to weight in on the need to restart it.
ASA/Plavix (for 21 days) statin (increased to 40mg nightly)
TSH mildly elevated - can be normal for 84yo F - with Hx of afib - not planning to increase Synthroid at this time - recheck TFT in 203 weeks with PCP
#Possible UTI
patient cannot reliably describe symptoms
Ceftriaxone pending Ucx: prelim E.coli
#Dark stool reported by RN
Hgb stable without drop
patient on iron PO that causing black stools
#Essential HTN
#Anxiety
#COPD, stable
#unspecified dementia
#Chronic ambulatory deficiency
cont home meds
DVT ppx SCDs
DNR/DNI
I have spent at least 59min reviewing chart, test results, communication with consultants, family and providing direct patient care
Ceftriaxone pending Ucx
Anticipated Discharge: Within 24 hours
Subjective/Interval History
-
Date of Service: December 05, 2024
Objective Data
-
Labs:
Laboratory Results
12/05/24
08:11
WBC 6.1
Hgb 12.5
Hct 36.4 L
Plt Count 196
Vital Signs:
Vital Signs
Temp Pulse Resp BP Pulse Ox
98.7 F 68 18 158/71 97
12/05/24 07:26 12/05/24 09:34 12/05/24 07:26 12/05/24 09:34 12/05/24 07:26
I&O
12/04/24 12/05/24 12/06/24
06:59 06:59 06:59
Intake Total 360 / 360
Balance 360 / 360
Review of Systems
-
History Source: Patient
All other systems: Reviewed and negative
Abdomen/GI: Reports Black Stools
Physical Exam
-
General: Well Developed, Well Nourished and No Apparent Distress
Neuro: Awake, Alert and Oriented
Psych: Apparent Dementia
[2024-12-05 11:28] VITALS: BP 130/72
[2024-12-05 11:45] LABS: Glucose - Point of Care 238 mg/dl (70-99)
[2024-12-05] MEDS: NOVOLOG FLEXPEN-LOW RESISTANCE 2 UNITS SC (12:39)
[2024-12-05] MEDS: ZOLOFT 75 MG PO (12:39)
--- NOTE | 2024-12-05 13:07 | W.PN.NEURO.1 ---
Today's Communication / Plan
-
.
Subjective/Objective
Subjective Data
Date of Service: December 05, 2024
Neurology follow-up note.
Mr. Davidson reports no complaints. Repeat CT head showed no acute infarcts.
PMH: PA AFib on ASA, NPH, history of GIB, HTN, ILD, hypothyroidism, dementia, GERD, hiatal hernia, vitamin D deficiency
PSH: Right parietal ventriculostomy, left foot surgery, bladder lift
SH: resident at [facility], former smoker, ambulates with wheelchair
FH: Unknown.
All: Bupropion, erythromycin, melatonin
ROS: Negative for headache, change in vision. Positive for encephalopathy.
General: Well developed. In no acute distress.
Cardio: Regular rate and rhythm without murmur. Extremities are without cyanosis or edema.
Neuro:
Mental Status: Alert, oriented to name, only. Impaired comprehension. No hemineglect. Follows simple requests. Nonfluent.
Cranial Nerves: Pupils are equally round and reactive to light. EOMs full. Points to threat bilaterally. No ptosis. No nystagmus. Face symmetric. Mildly impaired hearing AU. The palate elevated well. SCMs and traps 5/5. Tongue midline.
No dysarthria. Mild dysphonia.
Motor: Increased motor tone in lower extremities. No pronator drift. Moves lower extremities within [place]
Reflexes: Positive for bilateral crest
Coordination: No dysmetria or tremor
Gait: deferred
Assessment and Plan:
I. Transiently dysarthria. Likely TIA.
II. History of NPH status post VPS
III. Chronic encephalopathy
IV. PA A-Fib
- Continue Telemetry monitoring
- Fall precautions.
- Continue aspirin 81 mg once a day
- DVT prophylaxis.
- Outpatient neurology follow-up/
- Please recall neurology service with any questions or concerns.
I personally reviewed all radiology and labs along with past medical records pertinent to current medical problems. Total time spent in patient care is 35 minutes.
Thank you for allowing us to participate in the care of this patient. Please do not hesitate to contact us with any questions or concern
Objective Data
Vital Signs
Temp Pulse Resp BP Pulse Ox
36.8 C 60 18 130/72 97
12/05/24 11:28 12/05/24 11:28 12/05/24 11:28 12/05/24 11:12/05/24 11:28
Lab Results
12/05/24 08:11
12/04/24 07:35
Sodium 136 mmol/L (135-145) 12/04/24 07:35
Potassium 4.1 mmol/L (3.5-5.1) 12/04/24 07:35
BUN 8 mg/dl (7-17) 12/04/24 07:35
Glucose 170 mg/dl (70-99) H 12/04/24 07:35
Calcium 9.8 mg/dl (8.4-10.2) 12/04/24 07:35
LDL Cholesterol, Calc 197 mg/dl 12/04/24 07:35
Patient Allergies
bupropion Allergy (Verified 12/03/24 15:39)
Rash
erythromycin base Allergy (Verified 12/03/24 15:39)
Rash
Vital Signs and Labs
-
Vital Signs and Labs:
Vital Signs
Temp Pulse Resp BP Pulse Ox
36.8 C 60 18 130/72 97
12/05/24 11:28 12/05/24 11:12/05/24 11:12/05/24 11:12/05/24 11:28
Lab Results
12/05/24 08:11
12/04/24 07:35
Sodium 136 mmol/L (135-145) 12/04/24 07:35
Potassium 4.1 mmol/L (3.5-5.1) 12/04/24 07:35
BUN 8 mg/dl (7-17) 12/04/24 07:35
Glucose 170 mg/dl (70-99) H 12/04/24 07:35
Calcium 9.8 mg/dl (8.4-10.2) 12/04/24 07:35
LDL Cholesterol, Calc 197 mg/dl 12/04/24 07:35
Medications
-
Medications:
Generic Name Dose Route Start Last Admin
Trade Name Freq PRN Reason Stop Dose Admin
Acetaminophen 650 mg 12/04/24 00:23
Acetaminophen 650 Mg Rectal Suppository RECTAL 01/01/25 00:22
Q4HPRN PRN
BRIZUELA, mild pain, or temp >100.4F
Acetaminophen 650 mg 12/04/24 00:23
Acetaminophen 325 Mg Tablet PO 01/01/25 00:22
Q4HPRN PRN
BRIZUELA, mild pain, or temp >100.4F
Albuterol Sulfate 2.5 mg 12/04/24 00:23
Albuterol Nebs 2.5 Mg/3 Ml Ampul INH
R Q4HPRN PRN
shortness of breath
Protocol
Amlodipine Besylate 10 mg 12/05/24 08:00 12/05/24 09:35
Amlodipine 10 Mg Tablet PO 01/02/25 07:59 10 mg
DAILY ROSE Administration
Aspirin 81 mg 12/04/24 08:00 12/05/24 09:34
Aspirin 81 Mg Chewable Tablet PO 01/01/25 07:59 81 mg
DAILY ROSE Administration
Atorvastatin Calcium 40 mg 12/04/24 18:00 12/04/24 17:34
Atorvastatin (Lipitor) 40 Mg Tablet PO 01/01/25 17:59 40 mg
QPM ROSE Administration
Ceftriaxone Sodium 1,000 mg 12/04/24 08:00 12/05/24 09:35
Ceftriaxone 1000 Mg / 10 Ml Vial IV 1,000 mg
Q24H ROSE Administration
Clopidogrel Bisulfate 75 mg 12/04/24 08:00 12/05/24 09:34
Clopidogrel 75 Mg Tablet PO 01/01/25 07:59 75 mg
DAILY ROSE Administration
Dextrose 12.5 grams 12/04/24 00:23
Dextrose 50% (0.5 Grams/Ml) 50 Ml Syringe IV 01/01/25 00:22
[id number] PRN
hypoglycemia
Protocol
Famotidine 20 mg 12/04/24 08:00 12/05/24 09:34
Famotidine 20 Mg Tablet PO 01/01/25 07:59 20 mg
DAILY ROSE Administration
Glucagon 1 mg 12/04/24 00:23
Glucagon 1 Mg Vial IM 01/01/25 00:22
PRN PRN
hypoglycemia
Protocol
Insulin Aspart 0 units 12/04/24 07:30 12/05/24 12:39
Insulin Aspart Low Resistance 300 Units/3 Ml Pen.Injctr SC 01/01/25 07:29 2 units
AC ROSE Administration
Protocol
Levothyroxine Sodium 25 mcg 12/04/24 06:00 12/05/24 06:01
Levothyroxine 25 Mcg Tablet PO 01/01/25 05:59 25 mcg
DAILY@0600 ROSE Administration
Metoprolol Tartrate 25 mg 12/04/24 20:00 12/05/24 09:34
Metoprolol 25 Mg Regular Release Tablet PO 01/01/25 19:59 25 mg
BID ROSE Administration
Polyethylene Glycol 17 grams 12/04/24 00:23 12/04/24 01:46
Polyethylene Glycol Powder 17 Grams Packet PO 01/01/25 00:22 17 grams
MOWEFR ROSE Administration
Senna/Docusate Sodium 2 tablet 12/04/24 18:00 12/04/24 17:34
Docusate W/Senna (Jeanne-Colace) Tablet PO 01/01/25 17:59 2 tablet
QPM ROSE Administration
Sertraline HCl 75 mg 12/04/24 08:00 12/05/24 12:39
Sertraline 25 Mg Tablet PO 01/01/25 07:59 75 mg
DAILY ROSE Administration
Sterile Water 10 ml 12/04/24 08:00 12/05/24 09:35
Sterile Water For Injection 10 Ml Vial IV 01/01/25 07:59 10 ml
Q24H ROSE Administration
Home Medications
-
Home Medications
levothyroxine 25 mcg tablet 25 mcg PO DAILY Thyroid 01/20/22
polyethylene glycol 3350 17 gram oral powder packet 17 g PO MOWEFR Constipation 01/20/22
acetaminophen 500 mg tablet 1,000 mg PO Q12H mild Pain 03/31/23
ferrous sulfate 140 mg (45 mg iron) tablet,extended release (Slow Release Iron) 140 mg PO DAILY Supplement 03/31/23
acetaminophen 325 mg tablet (Tylenol) 650 mg PO Q4HPRN PRN mild pain 01/02/24
bisacodyl 10 mg rectal suppository 10 mg MD DAILYPRN PRN day 3 no bm aftr mom 01/02/24
cholecalciferol (vitamin D3) 1,250 mcg (50,000 unit) capsule 1,250 mcg PO QMONTH Supplement 01/02/24
magnesium hydroxide 400 mg/5 mL oral suspension (Milk of Magnesia) 30 ml PO HSPRN PRN constipation 01/02/24
ondansetron HCl 4 mg tablet 4 mg PO Q8HPRN PRN nausea 01/02/24
sennosides 8.6 mg-docusate sodium 50 mg tablet (Senna-S) 2 tab-cap PO QPM Constipation 01/02/24
albuterol sulfate 2.5 mg/3 mL (0.083 %) solution for nebulization 2.5 mg inhalation R Q4HPRN PRN sob 12/03/24
amlodipine 10 mg tablet (Norvasc) 10 mg PO DAILY 12/03/24
famotidine 20 mg tablet (Pepcid) 20 mg PO DAILY 12/03/24
metoprolol tartrate 25 mg tablet 25 mg PO BID 12/03/24
phenylephrine-shark liver oil-mineral oil-petrolatum rectal ointment (Hemorrhoidal ointment) 1 applic MD Q6HPRN PRN hemmorriods 12/03/24
sertraline 25 mg tablet 75 mg PO DAILY 12/03/24
[2024-12-05 15:04] VITALS: BP 150/61
[2024-12-05 16:39] LABS: Glucose - Point of Care 154 mg/dl (70-99)
[2024-12-05] MEDS: SENOKOT-S 2 TABLET PO (16:54)
[2024-12-05] MEDS: LIPITOR 40 MG PO (16:54)
[2024-12-05 19:43] VITALS: BP 148/75
[2024-12-05 21:15] LABS: Glucose - Point of Care 162 mg/dl (70-99)
[2024-12-05 23:24] VITALS: BP 125/64
[2024-12-06] MEDS: MIRALAX 17 GRAMS PO (01:34)
[2024-12-06 03:18] VITALS: BP 143/63
[2024-12-06] MEDS: SYNTHROID 25 MCG PO (05:20)
[2024-12-06 06:41] VITALS: BMI 27.1
[2024-12-06 07:05] VITALS: BP 170/90
[2024-12-06] MEDS: PLAVIX 75 MG PO (07:56)
[2024-12-06] MEDS: ZOLOFT 75 MG PO (07:56)
[2024-12-06] MEDS: PEPCID 20 MG PO (07:57)
[2024-12-06] MEDS: LOPRESSOR 25 MG PO (07:57)
[2024-12-06] MEDS: LOW STRENGTH ASPIRIN 81 MG PO (07:58)
[2024-12-06] MEDS: NORVASC 10 MG PO (07:58)
[2024-12-06] MEDS: STERILE WATER FOR INJECTION 10 ML IV (07:59)
[2024-12-06] MEDS: ROCEPHIN 1000 MG IV (08:00)
[2024-12-06 08:26] LABS: Glucose - Point of Care 158 mg/dl (70-99)
[2024-12-06] MEDS: NOVOLOG FLEXPEN-LOW RESISTANCE 1 UNITS SC (08:36)
--- NOTE | 2024-12-06 09:31 | W.PN.HOSP.TC ---
Today's Communication/Plan
-
DC
Assessment / Plan
Assessment / Plan
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
posterior cerebral artery and possibly left posterior cerebral artery, initiallyteleneuro advised urgent MRI brain but since [facility] was not able to provide info about shunt to ED- that was deferred to routine. Eventually, after
conversation with neurologist family declined MRI as it will not change mgmt. Admitted for CVA/TIA and accidental possible UTI
As per most recent note from [place] [facility]ology written in 2022 - patient was on ASA with Hx of PAF, but actually also noted frequent PVSc, so unclear if that was a reason to not to be on anticoagulation - patient to follow with established AMS
cardiology. Ucx grew pansensitive E.coli - reasonable to treat with 5 more days of cefuroxime. Medically stable for d/c
A/P:
#CVA/TIA
#Hypothyroidism
#HLD
telemetry - SR
With Hx of paroxysmal Afib but not on Ac - cardio consult to weight in on the need to restart it.
ASA/Plavix (for 21 days) statin (increased to 40mg nightly)
TSH mildly elevated - can be normal for 84yo F - with Hx of afib - not planning to increase Synthroid at this time - recheck TFT in 203 weeks with PCP
#Possible UTI
patient cannot reliably describe symptoms
Ceftriaxone pending Ucx: E.coli sensitive to cephalosporins
#Dark stool reported by RN
Hgb stable without drop
patient on iron PO that causing black stools
#Essential HTN
#Anxiety
#COPD, stable
#unspecified dementia
#Chronic ambulatory deficiency
cont home meds
DVT ppx SCDs
DNR/DNI
I have spent at least 36min reviewing chart, test results, communication with consultants, and providing direct patient care
Anticipated Discharge: Today
Subjective/Interval History
-
Date of Service: December 06, 2024
Objective Data
-
Vital Signs:
Vital Signs
Temp Pulse Resp BP Pulse Ox
97.6 F 79 16 147/75 94
12/06/24 07:05 12/06/24 07:57 12/06/24 07:05 12/06/24 07:57 12/06/24 07:05
I&O
12/05/24 12/06/24 12/07/24
06:59 06:59 06:59
Intake Total 360 / 360 720 / 720
Balance 360 / 360 720 / 720
Review of Systems
-
Unable to obtain full review of systems at this time due to: Dementia
History Source: Patient
Physical Exam
-
General: No Apparent Distress
Neuro: Awake and Alert
Psych: Calm
--- NOTE | 2024-12-06 09:40 | W.DCSUMMARY ---
Addendum entered and electronically signed by Rahul Jansen MD 12/06/24 11:33:
Recommendations on repeated TFT, ASA, statin, Plavix for 21 days and follow up with mix mill tender as wel as possible UTI on admission discussed in details with Cleo as pr CM request
Addendum entered and electronically signed by Rahul Jansen MD 12/06/24 09:43:
#DM
started metformin
DM diet
HgbA1c 7.6%
Original Note:
Discharge Summary
Discharge Data
Date of Admission: 12/03/24
Date of Discharge: 12/06/24
-
Pending Results: No
Hospital Course
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
posterior cerebral artery and possibly left posterior cerebral artery, initiallyteleneuro advised urgent MRI brain but since [facility] was not able to provide info about shunt to ED- that was deferred to routine. Eventually, after
conversation with neurologist family declined MRI as it will not change mgmt. Admitted for CVA/TIA and accidental possible UTI
As per most recent note from [place] [facility] written in 2022 - patient was on ASA with Hx of PAF, but actually also noted frequent PVSc, so unclear if that was a reason to not to be on anticoagulation - patient to follow with established AMS
cardiology. Ucx grew pansensitive E.coli - reasonable to treat with 5 more days of cefuroxime. Medically stable for d/c to SNF
I have spent at least 36min reviewing chart, test results, communication with consultants, and providing direct patient care
Patient was managed for:
#CVA/TIA
#Hypothyroidism
#HLD
#Possible UTI
#Dark stool reported by RN
#Essential HTN
#Anxiety
#COPD, stable
#unspecified dementia
#Chronic ambulatory deficiency
Discharge Plan
-
Patient Disposition: Chcf/SNF
Discharge Diagnosis/Procedures: CVA
Diet: Low Cholesterol
Driving Restrictions: As prior to admission
Blood Work: check thyroid tests in 2-3 weeks with family doctor
Referrals:
[facility] [Other, Cardiology]
Referral Note: Discuss if to restart anticoagulation for paroxysmal atrial fibrillation history
Osei Timmons DO [Family Provider, Family Practice]
Additional Discharge Medication Instructions: COntinue Plavix for 18 days and stop
Prescriptions:
New
atorvastatin 40 mg Tablet
40 mg PO QPM Qty: 30 0RF
clopidogrel 75 mg Tablet
75 mg PO DAILY Qty: 18 0RF
aspirin 81 mg Tablet,Chewable
81 mg PO DAILY Qty: 30 0RF
cefuroxime axetil 500 mg tablet
500 mg PO Q12H Qty: 10 0RF
Continued
polyethylene glycol 3350 17 gram Powder In Packet
17 g PO MOWEFR
levothyroxine 25 mcg Tablet
25 mcg PO DAILY
acetaminophen 500 mg Tablet
1,000 mg PO Q12H
Slow Release Iron 140 mg (45 mg iron) Tablet Extended Release
140 mg PO DAILY
acetaminophen [Tylenol] 325 mg Tablet
650 mg PO Q4HPRN PRN (Reason: mild pain)
ondansetron HCl 4 mg Tablet
4 mg PO Q8HPRN PRN (Reason: nausea)
sennosides-docusate sodium [Senna-S] 8.6-50 mg Tablet
2 tab-cap PO QPM
magnesium hydroxide [Milk of Magnesia] 400 mg/5 mL Suspension
30 ml PO HSPRN PRN (Reason: constipation)
bisacodyl 10 mg Suppository
10 mg RI DAILYPRN PRN (Reason: day 3 no bm aftr mom)
cholecalciferol (vitamin D3) 1,250 mcg (50,000 unit) Capsule
1,250 mcg PO QMONTH
Rx Instructions:
the Friday of each month
albuterol sulfate 2.5 mg /3 mL (0.083 %) Solution For Nebulization
2.5 mg INHALATION R Q4HPRN PRN (Reason: sob)
famotidine [Pepcid] 20 mg Tablet
20 mg PO DAILY
amlodipine [Norvasc] 10 mg Tablet
10 mg PO DAILY
sertraline 25 mg Tablet
75 mg PO DAILY
metoprolol tartrate 25 mg Tablet
25 mg PO BID
Hemorrhoidal Ointment
1 applic RI Q6HPRN PRN (Reason: hemmorriods)
Discharge Orders:
Discharge Patient (As Directed); Ordered 12/06/24
Ordered By: Rahul Jansen
Discharge Date and Time
Print Language: YORUBA
[2024-12-06 11:05] VITALS: BP 126/61
--- NOTE | 2024-12-06 12:00 | CM ---
Addendum entered by Suzy Jarvis RN 12/06/24 16:36:
Received call from Monet at [facility] director of emergency nursing denied SNF level of care. Peer to peer [phone] option 2. Notified Kadie Paul of denial . She said they will accept denial . No need for peer to peer.Monet notified at [facility].
Original Note:
MD entered order for discharge.
Spoke with Cleo [facility] [phone] she is in agreement with [facility]
Spoke with Cem at [facility] she accepted pt back . Requested auth for skilled time.
Auth requested submitted in [employer] and was marked pending. Reference number [id number].
Clinical faxed to [phone] .
Humberto [facility] advised of above .
Medical nec form completed for ambulance.
[facility]
report [phone]
fax [phone]
PLAN Return to [facility]
[2024-12-06] MEDS: NOVOLOG FLEXPEN-LOW RESISTANCE 2 UNITS SC (12:18)
[2024-12-06 12:19] LABS: Glucose - Point of Care 230 mg/dl (70-99)
== END 2024-12-06 13:17 ==
LOC: 4 EAST ACU 22:46
PROVIDERS: Physician Assistant; Physician Assistant Medical; ADMITTING PHYSICIAN Hospitalist; ATTENDING PHYSICIAN Internal Medicine; CONSULT PHYSICIAN Psychiatry & Neurology Neurology; EMERGENCY PHYSICIAN Student in an Organized Health Care Education/Training Program; FAMILY PHYSICIAN Student in an Organized Health Care Education/Training Program
DX: I63.89 Other cerebral infarction (principal); I48.0 Paroxysmal atrial fibrillation; J84.9 Interstitial pulmonary disease, unspecified; E03.9 Hypothyroidism, unspecified; F03.94 Unspecified dementia, unspecified severity, with anxiety; K21.00 Gastro-esophageal reflux disease with esophagitis, without bleeding; Z98.2 Presence of cerebrospinal fluid drainage device; I69.322 Dysarthria following cerebral infarction; I10 Essential (primary) hypertension; E78.5 Hyperlipidemia, unspecified; J44.9 Chronic obstructive pulmonary disease, unspecified; F41.1 Generalized anxiety disorder; G93.49 Other encephalopathy; K59.09 Other constipation; Z66 Do not resuscitate; Z79.02 Long term (current) use of antithrombotics/antiplatelets; Z79.82 Long term (current) use of aspirin; Z79.899 Other long term (current) drug therapy; Z87.440 Personal history of urinary (tract) infections; Z87.891 Personal history of nicotine dependence
CPT/HCPCS: 0042T; 70450; 70496; 70498; 80048; 80053; 80061; 81003; 81015; 82962; 83036; 83735; 84439; 84443; 85025; 85027; 87070; 87077; 87086; 87186; 92610; 93005; 97162; 97166; 99285; G0378; Q9967

== ENCOUNTER → 2025-01-13 11:21 | Outpatient (REF) | payer OTHER, SELFPAY ==
[2025-01-13 12:45] LABS: TSH 3.36 uIU/ml (0.47-4.68)
== END ==
LOC: OLABN 11:21
PROVIDERS: ATTENDING PHYSICIAN Student in an Organized Health Care Education/Training Program
DX: E03.9 Hypothyroidism, unspecified (principal)
CPT/HCPCS: 36415; 84443

== ENCOUNTER → 2025-02-12 09:07 | Outpatient (REF) | payer OTHER, SELFPAY ==
[2025-02-12 12:23] LABS: ALT (SGPT) 41 U/L (0-35); AST (SGOT) 42 U/L (14-36); Albumin 3.5 g/dl (3.5-5.0); Alkaline Phosphatase 48 U/L (38-126); Blood Urea Nitrogen 10 mg/dl (7-17); Calcium 10.0 mg/dl (8.4-10.2); Carbon Dioxide 25 mmol/L (22-30); Chloride 106 mmol/L (98-107); Glucose 112 mg/dl (70-99); Magnesium 1.6 mg/dl (1.6-2.3); Potassium 3.8 mmol/L (3.5-5.1); Sodium 136 mmol/L (135-145); Total Protein 6.1 g/dl (6.3-8.2); eGFR > 60.00
[2025-02-12 12:50] LABS: Hematocrit 39.9 % (37.0-47.0); Hemoglobin 12.7 g/dL (12.0-16.0); Mean Corp Hgb Conc. 31.8 g/dL (33.0-37.0); Mean Corpuscular Volume 90.1 fL (81.0-99.0); Nucleated Red Blood Cells % 0 %; Platelet Count 205 10^3/uL (130-400); Red Cell Dist. Width 13.2 % (11.5-14.5)
== END ==
LOC: OLABN 09:07
PROVIDERS: ATTENDING PHYSICIAN Student in an Organized Health Care Education/Training Program
DX: E11.65 Type 2 diabetes mellitus with hyperglycemia (principal); R30.9 Painful micturition, unspecified
CPT/HCPCS: 36415; 80053; 83735; 85025

== ENCOUNTER → 2025-02-12 09:12 | Outpatient (REF) | payer OTHER, SELFPAY ==
[2025-02-12 13:24] LABS: Urine Character Cloudy (Clear)
[2025-02-12 13:34] LABS: Urine Red Blood Cell 0-2 /HPF (0-2); Urine White Cell 0-2 /HPF (0-5)
== END ==
LOC: OLABN 09:12
PROVIDERS: ATTENDING PHYSICIAN Student in an Organized Health Care Education/Training Program
DX: R30.9 Painful micturition, unspecified (principal)
CPT/HCPCS: 81003; 81015; 87086

== ENCOUNTER 2025-03-15 10:54 | Emergency (ER) | payer OTHER, SELFPAY ==
[2025-03-15] VITALS (9 sets, daily range): BP systolic 105–134; BP diastolic 53–71
[2025-03-15 11:15] LABS: Hematocrit 37.4 % (37.0-47.0); Hemoglobin 12.2 g/dL (12.0-16.0); Mean Corp Hgb Conc. 32.6 g/dL (33.0-37.0); Mean Corpuscular Volume 91.0 fL (81.0-99.0); Nucleated Red Blood Cells % 0 %; Platelet Count 256 10^3/uL (130-400); Red Cell Dist. Width 13.8 % (11.5-14.5)
[2025-03-15 11:30] LABS: ALT (SGPT) 18 U/L (0-35); AST (SGOT) 22 U/L (14-36); Albumin 3.4 g/dl (3.5-5.0); Alkaline Phosphatase 46 U/L (38-126); Blood Urea Nitrogen 25 mg/dl (7-17); Calcium 10.2 mg/dl (8.4-10.2); Carbon Dioxide 27 mmol/L (22-30); Chloride 105 mmol/L (98-107); Glucose 126 mg/dl (70-99); Potassium 4.3 mmol/L (3.5-5.1); Sodium 139 mmol/L (135-145); Total Protein 5.7 g/dl (6.3-8.2); eGFR > 60.00
--- NOTE | 2025-03-15 16:00 | ED.GENMED ---
History of Present Illness
<Nnamdi Urena MD - Last Filed: 03/15/25 16:04>
General
Chief Complaint: Abdominal Symptoms
Source: patient and family
Exam Limitations: dementia
Time Seen by Provider: 03/15/25 11:41
Nursing documentation reviewed up to this point in time: agreed with
History of Present Illness
History of Present Illness:
Patient with history of dementia and hiatal hernia, presents to ED secondary to 1 episode of vomiting, associated with blood, as well as bloody bowel movement. Denies fever or chills. Denies abdominal pain. Denies trauma. Denies dizziness or
weakness. Denies shortness of breath. Per family, patient had 1 similar episode in the past, attributed to reflux, due to hiatal hernia.
Past History
<Nnamdi Urena MD - Last Filed: 03/15/25 16:04>
Past History
ED Past Medical History: GERD, Hypothyroidism and Other (Dementia)
ED Past Surgical History: None
Social History
Tobacco: Non-smoker
Alcohol: None
Review of Systems
<Nnamdi Urena MD - Last Filed: 03/15/25 16:04>
Review of Systems
Allergies reviewed?: Yes
Unable to obtain full review of systems at this time due to: dementia
All Other Systems: Not applicable
Phy Exam
<Nnamdi Urena MD - Last Filed: 03/15/25 16:04>
Physical Exam
Physical Exam:
Physical Exam
General: no apparent distress, not acutely ill. afebrile
Head: nc/at. eomi
Neck: supple. no meningeal signs.
Heart: s1/s2 regular rate and rhythm
Lungs: no acute respiratory distress. clear bilaterally
Abdomen: normal bowel sounds. mild RUQ tenderness to palpation without distention
Neuro: alert and oriented x 3. no focal neurological deficits
Skin: no rash
Psychiatric: well kept. interactive and cooperative
Extremities: no edema. no calf tenderness.
Course
<Nnamdi Urena MD - Last Filed: 03/15/25 16:04>
Orders/Labs/Results
Orders:
Orders
03/15/25 10:58
EKG [Electrocardiogram (*1)] Urgent
Reason for Study: Abdominal Pain
EKG- Treatment ONCE
03/15/25 11:07
CBC/With Diff [Complete Blood Count/With Diff] Urgent
CMP [Comprehensive Metabolic Panel] Urgent
03/15/25 17:13
Pantoprazole [Protonix IV] 40 mg IV NOW STA
Abnormal Lab Results
03/15/25
11:07
RBC 4.11 L 10^6/uL
(4.20-5.40)
MCHC 32.6 L g/dL
(33.0-37.0)
Abs Immat Gran (auto) 0.2 H 10^3/uL
(0-0.05)
Absolute Monos (auto) 0.7 H 10^3/uL
(0.1-0.6)
Immature Gran % 1.7 H %
(0-0.5)
BUN 25 H mg/dl
(7-17)
Glucose 126 H mg/dl
(70-99)
Total Protein 5.7 L g/dl
(6.3-8.2)
Albumin 3.4 L g/dl
(3.5-5.0)
03/15/25 11:07
03/15/25 11:07
Vital Signs
Initial and Last Documented VS:
Initial Vital Signs
Pulse Resp BP Pulse Ox
62 14 124/71 96
03/15/25 10:55 03/15/25 10:55 03/15/25 10:55 03/15/25 10:55
Last Documented Vital Signs
Temp Pulse Resp BP Pulse Ox
97.9 F 64 19 119/63 97
03/15/25 10:59 03/15/25 13:00 03/15/25 11:15 03/15/25 13:00 03/15/25 16:04
<Isabella Booth MD - Last Filed: 03/15/25 17:25>
Orders/Labs/Results
Orders:
Orders
03/15/25 10:58
EKG [Electrocardiogram (*1)] Urgent
Reason for Study: Abdominal Pain
EKG- Treatment ONCE
03/15/25 11:07
CBC/With Diff [Complete Blood Count/With Diff] Urgent
CMP [Comprehensive Metabolic Panel] Urgent
03/15/25 17:13
Pantoprazole [Protonix IV] 40 mg IV NOW STA
Abnormal Lab Results
03/15/25
11:07
RBC 4.11 L 10^6/uL
(4.20-5.40)
MCHC 32.6 L g/dL
(33.0-37.0)
Abs Immat Gran (auto) 0.2 H 10^3/uL
(0-0.05)
Absolute Monos (auto) 0.7 H 10^3/uL
(0.1-0.6)
Immature Gran % 1.7 H %
(0-0.5)
BUN 25 H mg/dl
(7-17)
Glucose 126 H mg/dl
(70-99)
Total Protein 5.7 L g/dl
(6.3-8.2)
Albumin 3.4 L g/dl
(3.5-5.0)
03/15/25 11:07
03/15/25 11:07
Vital Signs
Initial and Last Documented VS:
Initial Vital Signs
Pulse Resp BP Pulse Ox
62 14 124/71 96
03/15/25 10:55 03/15/25 10:55 03/15/25 10:55 03/15/25 10:55
Last Documented Vital Signs
Temp Pulse Resp BP Pulse Ox
97.9 F 64 19 119/63 97
03/15/25 10:59 03/15/25 13:00 03/15/25 11:15 03/15/25 13:00 03/15/25 16:04
<Nnamdi Urena MD - Last Filed: 03/15/25 16:04>
MDM/Problems Addressed
MDM/Problems Addressed:
During initial evaluation, extensive discussion and held with patient's daughter, who is power of assistant district attorney. At this time, family request minimal, noninvasive studies, to determine any treatable etiology, while understanding that without any
invasive studies, i.e. endoscopy, clear etiology may not be found during evaluation today. Discussion to be continued after obtaining CT abdomen pelvis.
<Nnamdi Urena MD - Last Filed: 03/15/25 16:04>
*Pulse Oximetry
SaO2: 97
Oxygen Mode of Delivery: Room air
<Isabella Booth MD - Last Filed: 03/15/25 17:25>
*Pulse Oximetry
Patient hypoxic: no
*Critical Care Note
Total Time (30-74mins, 75-104mins- exclusive of procedures): Not Applicable
<Isabella Booth MD - Last Filed: 03/15/25 17:25>
Update Note
Update Note:
5:00 PM patient's daughter expresses that she does not want patient to have the CAT scan. She expresses that she and the rest of the family would like the patient to be started on hospice and does not feel that doing the CAT scan is of any benefit.
Her daughter told me that she would rather the patient be kept comfortable and go back soon as possible to [facility]. I evaluated the patient and she appears comfortable. Patient does however have black secretions in her mouth. I did
explain to her daughter that it appears as though her bleeding is active and that patient's in this condition are admitted to the hospital. Daughter understands that she could decompensate quickly but would still like her sent back to [facility] given that her expectation is to put her mother on hospice anyway. I explained to the daughter that for any reason she changes her mind, the patient should come back and be reevaluated in the ED.
ED Attending Note
<Nnamdi Urena MD - Last Filed: 03/15/25 16:04>
-
Portions of this chart may have been created with voice recognition software.� Occasional wrong word or��sound alike� substitutions may have occurred due to the inherent limitations of voice recognition software.
Discharge Plan
Departure
Patient Disposition: Home (Routine Discharge)
Date of Disposition: 03/15/25
Time of Disposition: 17:14
Patient with high blood pressure during this ER visit?: No
Condition: Fair
Covid-19: Not Applicable
Discharge Problem:
Coffee ground emesis
Instructions: GI bleed
Prescriptions:
New
pantoprazole [Protonix] 40 mg tablet,delayed release (DR/EC)
40 mg PO BID 14 Days Qty: 28 0RF
No Action
polyethylene glycol 3350 17 gram Powder In Packet
17 g PO MOWEFR
levothyroxine 25 mcg Tablet
25 mcg PO DAILY
acetaminophen 500 mg Tablet
1,000 mg PO Q12H
Slow Release Iron 140 mg (45 mg iron) Tablet Extended Release
140 mg PO DAILY
acetaminophen [Tylenol] 325 mg Tablet
650 mg PO Q4HPRN PRN (Reason: mild pain)
ondansetron HCl 4 mg Tablet
4 mg PO Q8HPRN PRN (Reason: nausea)
sennosides-docusate sodium [Senna-S] 8.6-50 mg Tablet
2 tab-cap PO QPM
magnesium hydroxide [Milk of Magnesia] 400 mg/5 mL Suspension
30 ml PO HSPRN PRN (Reason: constipation)
bisacodyl 10 mg Suppository
10 mg DE DAILYPRN PRN (Reason: day 3 no bm aftr mom)
cholecalciferol (vitamin D3) 1,250 mcg (50,000 unit) Capsule
1,250 mcg PO QMONTH
Rx Instructions:
the Friday of each month
albuterol sulfate 2.5 mg /3 mL (0.083 %) Solution For Nebulization
2.5 mg INHALATION R Q4HPRN PRN (Reason: sob)
famotidine [Pepcid] 20 mg Tablet
20 mg PO BID
amlodipine [Norvasc] 10 mg Tablet
10 mg PO DAILY
sertraline 25 mg Tablet
50 mg PO DAILY
metoprolol tartrate 25 mg Tablet
25 mg PO BID
Hemorrhoidal Ointment
1 applic DE Q6HPRN PRN (Reason: hemmorriods)
Anbesol (benzocaine) Max Str 20 % Gel
1 applic MUCOUS MEMBRANE QIDPRN PRN (Reason: RIGHT LOWER MOUTH)
atorvastatin 40 mg tablet
40 mg PO QPM
metformin 500 mg tablet
500 mg PO BID
aspirin 81 mg tablet,chewable
81 mg PO DAILY
Referrals:
Osei Timmons DO [Family Provider, Family Practice]
Activity Restrictions/Additional Instructions:
Carito Turner likely has an upper gastrointestinal bleed. Her family has opted to not treat this aggressively, as they have expressed that they would like the patient to be started on hospice. Therefore, we will treat this by starting the patient
on Protonix twice a day
If the family would like to treat this more aggressively, please have Carito come back to the hospital, especially if the vomiting persists.
Interventions
Interventions:
*Risk Screen - Suicide Last Done: 03/15/25 10:59
*General Assessment Last Done: 03/15/25 10:59
*Neglect/Abuse Screening Last Done: 03/15/25 10:59
*ED COVID-19 Vaccine History Last Done: 03/15/25 10:59
*ED Influenza Vaccine History Last Done: 03/15/25 10:59
[facility] Last Done: 03/15/25 11:00
Discharge Date and Time
Print Language: NAURUAN
[2025-03-15] MEDS: PROTONIX IV 40 MG IV (17:26)
== END 2025-03-15 20:20 | disposition home or self-care (01) ==
LOC: EMR 10:54
PROVIDERS: EMERGENCY PHYSICIAN Emergency Medicine; FAMILY PHYSICIAN Student in an Organized Health Care Education/Training Program
DX: K92.0 Hematemesis (principal); F03.90 Unspecified dementia, unspecified severity, without behavioral disturbance, psychotic disturbance, mood disturbance, and anxiety; E03.9 Hypothyroidism, unspecified; K21.9 Gastro-esophageal reflux disease without esophagitis; K44.9 Diaphragmatic hernia without obstruction or gangrene
CPT/HCPCS: 99284; 96374; 80053; 85025; 93005